=== PATIENT | male | born 1955 | race Caucasian/White ===

== ENCOUNTER 2020-05-23 13:53 | Outpatient (REF) | payer OTHER, SELFPAY ==
--- NOTE | 2020-05-23 14:04 | XR_ITS ---
EXAMINATION: XR SHOULDER, RIGHT CLINICAL INFORMATION: Pain in right shoulder. COMPARISON: None TECHNIQUE: Three views of the right shoulder. FINDINGS: There is loss of right AC joint and right glenohumeral joint space with inferior periarticular spurring. There is a small inferior acromial spur. No visible acute fracture, dislocation or lytic process seen. The soft tissues are normal. XR/XR shoulder RT min 2V IMPRESSION: Degenerative arthritic changes in right glenohumeral joint and right AC joint.
== END 2020-05-23 13:54 | disposition home or self-care (01) ==
LOC: HO.HOSX 13:53
PROVIDERS: Visit Provider Orthopaedic Surgery
DX: M75.41 Impingement syndrome of right shoulder (principal)
CPT/HCPCS: 73030; 99212

== ENCOUNTER 2020-07-31 09:58 | Outpatient (REF) | payer OTHER, SELFPAY ==
[2020-07-31 10:55] LABS: MANUAL DIFF FLAG NO
[2020-07-31 11:05] LABS: Basophils Absolute Auto 0.1 X10*3/uL (0.0-0.2); Basophils Percent Auto 0.8 % (0-2); Eosinophils Absolute Auto 0.3 X10*3/uL (0.0-0.4); Eosinophils Percent Auto 3.6 % (0-4); Hematocrit 44.3 % (42-52); Hemoglobin 13.9 g/dl (14.0-18.0); Imm Gran Abs Auto 0.03 X10*3/uL (0.00-0.03); Imm Gran Pct Auto 0.4 % (0.0-0.4); Lymphocytes Absolute Auto 1.6 X10*3/uL (1.2-4.9); Lymphocytes Percent Auto 19.5 % (20-40); Mean Corpuscular HGB Conc 31.4 g/dl (31.0-36.0); Mean Corpuscular Hemoglobin 28.6 pg (27.0-33.0); Mean Corpuscular Volume 91.2 fL (80-98); Mean Platelet Volume 12.1 fL (9.4-12.4); Monocytes Absolute Auto 0.8 X10*3/uL (0.1-1.2); Monocytes Percent Auto 9.6 % (2-11); Neutrophils Absolute Auto 5.5 X10*3/uL (2.0-8.3); Neutrophils Percent Auto 66.1 % (45-73); Platelet Count 182 X10*3/uL (160-400); Red Blood Count 4.86 X10*6/uL (4.60-5.80); Red Cell Distribution Width 13.2 % (11.0-16.0); White Blood Count 8.3 X10*3/uL (4.8-10.8)
[2020-07-31 11:30] LABS: Alanine Aminotransferase 20 U/L (0-40); Albumin Level 4.1 g/dL (3.5-5.0); Alkaline Phosphatase 43 U/L (39-117); Anion Gap 11 (12-20); Aspartate Amino Transferase 21 U/L (5-37); Bilirubin Total 0.9 mg/dL (0.0-1.0); Blood Urea Nitrogen 21 mg/dL (9-16); Calcium 9.3 mg/dL (8.4-10.2); Carbon Dioxide 28 mmol/L (22-29); Chloride 105 mmol/L (96-108); Cholesterol 199 mg/dL; Estimated Glomerular Filt Rate > 60; Glucose Random 90 mg/dL (60-115); HDL Cholesterol 56 mg/dL; LDL Cholesterol Calculated 130 mg/dl; Potassium 4.6 mmol/L (3.3-5.1); Sodium 139 mmol/L (135-145); Total Protein 5.9 g/dL (6.5-8.0); Triglycerides 67 mg/dL
[2020-07-31 11:52] LABS: Free T4 (Free Thyroxine) 0.97 ng/dL (0.71-1.85); Thyroid Stimulating Hormone 4.76 uIU/mL (0.32-4.0)
[2020-07-31 12:00] LABS: Folate > 20.0 ng/mL (> or = 4.0); Vitamin B12 964 pg/mL (200-900)
[2020-07-31 14:21] LABS: Prostate Specific Antigen Scr 1.45 ng/mL (<0.05-4.0)
== END 2020-07-31 09:59 | disposition home or self-care (01) ==
LOC: HO.LAB 09:58
PROVIDERS: PCP Internal Medicine; Visit Provider Internal Medicine
DX: N40.0 Benign prostatic hyperplasia without lower urinary tract symptoms (principal); I77.810 Thoracic aortic ectasia; M17.0 Bilateral primary osteoarthritis of knee; E78.00 Pure hypercholesterolemia, unspecified; Z12.5 Encounter for screening for malignant neoplasm of prostate
CPT/HCPCS: 36415; 80053; 80061; 82607; 82746; 84153; 84439; 84443; 85025

== ENCOUNTER → 2020-08-22 15:35 | Outpatient (BNVA) | payer OTHER, SELFPAY | PROVIDERS: PCP Internal Medicine; Visit Provider Surgery | DX: K43.9 Ventral hernia without obstruction or gangrene (principal); K42.9 Umbilical hernia without obstruction or gangrene | CPT/HCPCS: 99212 ==

== ENCOUNTER → 2020-08-29 13:25 | Outpatient (BNVA) | payer OTHER, SELFPAY | PROVIDERS: Visit Provider Orthopaedic Surgery | DX: M17.11 Unilateral primary osteoarthritis, right knee (principal) | CPT/HCPCS: J1040 ==

== ENCOUNTER → 2020-09-13 13:27 | Outpatient (REF) | payer OTHER, SELFPAY ==
--- NOTE | 2020-09-13 13:30 | CA_ITS ---
Transthoracic Echocardiogram Patient (Last, First, Middle): Dilan Seay, Gender: Male Date of : 1955 Age: 64 Procedure Date: 09/13/2020 Procedure Type: Transthoracic Echocardiogram Location: OP Height: 177.8 cm Weight: 84.37 kg BSA: 2.02 m2 Heart Rate: bpm BP: 139 / 82 mmHg Manager Of Compensation: ALICE Referring MD: Tavares Mcgee MD Symptoms: I77.810 - Thoracic aortic ectasia Study Quality: Fair ECG Rhythm: Bradycardia Conclusions: - The left ventricular systolic function is normal. The visually estimated ejection fraction is between 65-70%. - The mitral valve appears myxomatous. There is mild posterior mitral leaflet prolapse. There is mild mitral valve regurgitation. Findings Left Ventricle Normal left ventricular cavity size. There is normal left ventricular wall thickness. The left ventricular systolic function is normal. The visually estimated ejection fraction is between 65-70%. There is no evidence of regional wall motion abnormalities. Diastolic function is normal for age. Right Ventricle Normal right ventricular cavity size and systolic function. Atria Both atria are normal in size. Aortic Valve There is a normal trileaflet aortic valve. There is mild calcification of the aortic valve. There is no aortic valve stenosis. Trace to mild aortic regurgitation. Mitral Valve The mitral valve appears myxomatous. There is mild posterior mitral leaflet prolapse. There is mild mitral valve regurgitation. There is no mitral valve stenosis. Small mobile structure on the leaflet most likely chordal. Pulmonic Valve The pulmonic valve was not well visualized. There is trace to mild pulmonic valve regurgitation. Tricuspid Valve Normal tricuspid valve structure. There is trace tricuspid valve regurgitation. The pulmonary artery systolic pressure is normal. Great Vessels The aortic annulus, sinuses of valsalva, and asc aorta are normal in size. Venous The inferior vena cava is normal in size and collapses greater than 50% with inspiration. Pericardium/Pleural There is no evidence of pericardial effusion. Prior Study Comparison No prior study available for comparison. Measurements M-Mode Liner Measurements Normals - Women/Men AOV Cusps: 2.60 1.5-2.6 cm/m2 2D Linear Measurements IVSd: 0.98 0.6-0.9/0.6-1.0 cm LVIDd: 5.17 3.9-5.3/4.2-5.9 cm LVIDd Index: 0.42 2.4-3.2/2.2-3.1 cm/m2 LVIDs: 3.20 2.0-3.6 cm LVPWd: 1.02 0.7-1.1 cm Ao Root: 3.20 2.1-3.5 cm LA Diam: 4.20 2.7-3.8/3.0-4.0 cm LAIDs Index: 0.34 1.5-2.3 cm/m2 LV Mass: 239.95 67-162/88-224 g LV Mass Index: 19.57 43-95/49-115 g/m2 LVOT Diam: 2.50 3.0+(-)1.3 cm 2D Systolic Function EF 4C: 65.60 >55% EF 2C: 68.20 >55% EF BiP: 67.10 >55% Mitral Valve MV Pk E: 0.66 MV PK A: 0.38 MV Decel Time: 363.00 E/A: 1.70 E'Lateral: 12.80 E'Medial: 7.40 E/E' Med: 8.90 E/E' Lat: 5.20 PHT: 106.00 MVA PHT: 2.08 Decel Wilkin: 1.82 Aortic Valve AoV Pk Alok: 1.57 AoV Pk Grad: 10.00 LVOT LVOT Pk Alok: 0.99 LVOT Mn Alok: 0.66 LVOT VTI: 0.21 LVOT Pk Grad: 4.00 LVOT Mn Grad: 2.00 LVOT Diam: 2.50 LVOT Area: 4.91 Diastolic Function MV Pk E: 0.66 MV Pk A: 0.38 E/A: 1.70 E'Medial: 7.40 E/E' Med: 8.90 E' Laterial: 12.80 E/E' Lat: 5.20 Tricuspid Valve TR Pk Alok: 2.39 TR Pk Grad: 23.00 RA Press: 3.00 RVSP: 26.00 Great Vessels Aorta Ao Root-2D: 3.20 2.0-3.7 cm Ao Asc: 3.40 2.1-3.4 cm Ao Arch: 2.90 Pulmonary Valve PV Pk Alok: 1.41 Peak PV Grad: 8.00 Updated in Other Vendor System with Status of Final Aaron Kraft MD electronically signed on 09/16/2020 10:10:26 AM with status of Final
== END ==
LOC: HO.CARD 13:27
PROVIDERS: Visit Provider Internal Medicine
DX: I77.810 Thoracic aortic ectasia (principal)
CPT/HCPCS: 93306

== ENCOUNTER 2020-10-09 08:42 | Day surgery (SDC) | payer OTHER, SELFPAY ==
[2020-10-02 11:38] VITALS: BMI 27.1
--- NOTE | 2020-10-04 14:19 | HO.ANESPROP2 ---
Documented by User: Sharon Art 10/04/20 14:24 HPI - Anesthesia Eval Consult details Narrative: 64yo F for Umbilical & Supraumbilical Hernia Repairs PMFSH Active Problems Active Problems: All Active Problems (Updated 10/03/20 @ 09:00 by Mable Garcia) Shoulder pain (Acute) Rotator cuff impingement syndrome of right shoulder (Acute) High thyroid stimulating hormone (TSH) level (Acute) Onychomycosis (Acute) Primary osteoarthritis of right knee (Acute) Bradycardia (Acute) Vertigo (Acute) Supraumbilical hernia (Acute) Ventral hernia (Acute) Umbilical hernia (Acute) Ascending aorta dilatation (Acute) Osteoarthritis of knees, bilateral (Acute) BPH (benign prostatic hyperplasia) (Acute) Past Medical History Medical History Ascending aorta dilatation Bipolar 1 disorder BPH (benign prostatic hyperplasia) Bradycardia Erectile dysfunction Osteoarthritis of knees, bilateral Pituitary adenoma Supraumbilical hernia Umbilical hernia Ventral hernia Vertigo Family History Family History Father CVD (cardiovascular disease) Mother Medical history unknown Maternal Aunt Non-Hodgkin lymphoma Paternal Uncle Myocardial infarction Surgical History Surgical History H/O colonoscopy History of surgery History of tonsillectomy Skin cancer of face Social History Social History Alcohol intake: current Alcohol intake frequency: a few times a month Alcohol type: beer Smoking Status: Former smoker Tobacco Type: Cigarette Advance Directives Information Provided: No Current occupational status: employed 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 The visually estimated ejection fraction is between 65-70%. - The mitral valve appears myxomatous. There is mild posterior mitral leaflet prolapse. There is mild mitral valve regurgitation. The aortic annulus, sinuses of valsalva, and asc aorta are normal in size. Assessment and Plan Assessment Anesthesia Assessment: Chart Reviewed Documented by User: Samuel Palma MD 10/09/20 11:48 [facility] Past Medical History Medical History Ascending aorta dilatation Bipolar 1 disorder BPH (benign prostatic hyperplasia) Bradycardia Erectile dysfunction Osteoarthritis of knees, bilateral Pituitary adenoma Supraumbilical hernia Umbilical hernia Ventral hernia Vertigo Family History Family History Father CVD (cardiovascular disease) Mother Medical history unknown Maternal Aunt Non-Hodgkin lymphoma Paternal Uncle Myocardial infarction Surgical History Surgical History H/O colonoscopy History of surgery History of tonsillectomy Skin cancer of face Social History Social History Alcohol intake: current Alcohol intake frequency: a few times a month Alcohol type: beer Smoking Status: Former smoker Tobacco Type: Cigarette Advance Directives Information Provided: No Current occupational status: employed 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 Meds Allergies Allergy/AdvReac Type Severity Reaction Status Date / Time erythromycin base AdvReac Mild N/V Verified 10/09/20 10:02 [ERYTHROMYCIN BASE] Exam Airway Mallampati Class: I TM Dist: >3cm Neck ROM: Full Loose/Missing/Broken Teeth: Yes Heart: RRR Lungs: NL Assessment and Plan Assessment Anesthesia Assessment: Anesthesia Plan Discussed and Chart Reviewed Final Anesthetic Review NPO: Yes ASA Class: II Final Preanesthetic Review: No Changes in Pt Med Stat, Meds/Allgs Chart Reviewed, Consent Obtained/Reviewed and Anes Risks/Benef Reviewed Patient Risk: Low Procedure Risk: Low Anesthetic Plan Anesthetic Plan: GA Disposition: Standard PACU
[2020-10-09] VITALS (7 sets, daily range): BP systolic 122–150; BP diastolic 62–78; PULSE 47–55; RESP 14–18; TEMP 36.7; O2SAT 95–99
[2020-10-09] MEDS: Lactated Ringers 1,000 ML 100 ML IVCONT (10:24)
--- NOTE | 2020-10-09 10:35 | MHC.SHP ---
Pre-Procedural Eval Section B Chief Complaint: Supraumbilical hernia, Umbilical hernia Allergies: Allergies Allergy/AdvReac Type Severity Reaction Status Date / Time erythromycin base AdvReac Mild N/V Verified 10/09/20 10:02 [ERYTHROMYCIN BASE] Plan I have reviewed the history and physical and performed a pertinent physical examination on my patient. No changes have occurred unless specified.
--- NOTE | 2020-10-09 12:53 | PM.OP ---
Brief Operative Note Date of Service: 10/09/20 Pre-op diagnosis: supraumbilical and umbilical hernias Post-op diagnosis: same Procedure: repair of supraumbilical and umbilical hernia with mesh Implants: mesh Surgeon: Ravi Stone MD Anesthesia: GLMA Estimated blood loss (mL): 15 Pathology: none sent Condition: stable Disposition: PACU
--- NOTE | 2020-10-09 13:12 | P.OP_ITS ---
Operative Note Operative Note Date of Service: 10/09/20 Narrative: Preop diagnosis: Supraumbilical and umbilical hernias Postop diagnosis: The same Procedure: Repair of supraumbilical and umbilical hernias with mesh, Ventralex Surgeon: Ravi Stone MD Per Diem Physical Therapist Assistant: None The patient is a 64-year-old male who was seen by me in the office for umbilical and supraumbilical hernias. He wanted both of these repaired. He understood the technique of the procedure. He was aware of the risks, benefits, and alternatives. He was brought to the operating room and placed in supine position under general anesthesia via laryngeal mask airway. The abdomen was prepped and draped in the usual sterile fashion. A surgical time-out was done. The patient received cefazolin 2 g IV preoperatively. The umbilical hernia was palpable and this measured about 1.5 cm. There was another hernia just above the umbilicus measuring about 2 cm in size. Since there was very short intervening gap between the 2, I felt that it would be reasonable to repair this 2 hernias with 1 mesh. I made a short incision on the midline starting from just above the umbilicus towards the umbilicus itself using a blade 15. This was carried down through the full-thickness skin and ubcutaneous fat down to the fascia. I was able to clearly see both hernias. Both of these hernias contained fat. A sharply dissected the supraumbilical hernia using Metzenbaum scissors down to the fascial defect. This was a small defect measuring about 1.5 cm in size The umbilical hernia was also about 1.0 cm in size. Again there was note of a very short intervening fascia between the 2. I had to dissect the umbilicus off of the hernia itself sharply to separate this and allow me to define the hernia down to the fascia. Eventually with sharp dissection I was able to define the entire hernia defect. This was about 1 cm in size. I connected the hernias by dividing the very short intervening fascia. I applied Arnol clamps to the fascia to lift this and these allowed me to visualize the underside of the fascial defect. There was note of adherent omentum without any bowel loops. I the omentum from the fascia sharply using Metzenbaum scissors to allow me to have a clear margin around the fascial defect for placement of the mesh. The total hernia defect was probably about 3.5 cm . I used a medium-sized Ventralex mesh. This was laid flat under the fascia. I secured this to the fascia with Prolene 2-0 sutures using the Prolene straps on each side. I then came the straps flush on the fascial level. I closed the fascia with a running Maxon 1 stitch. A Dexon 3-0 stitch was used to states the umbilicus to the fascia to recreate the umbilical dimple. I then closed the skin with running Dexon 4-0 subcuticuclar running sutures. I infiltrated the area with Marcaine 0.5% for postop analgesia. Steri-Strips and dressings were applied. The procedure was then completed The patient tolerated mass procedure well. There were no complications noted. Initial and final counts of sponges and instruments were correct. Estimated blood loss about 20 cc. The patient tolerated procedure well. The patient was extubated without difficulty and transferred to the recovery room with stable vital signs.
[2020-10-09] MEDS: oxyCODONE HCl Immed Release 5 MG TABLET PO (13:36)
== END 2020-10-09 14:26 | disposition home or self-care (01) ==
PROVIDERS: PCP Internal Medicine; Visit Provider Surgery
PROC: (CPT 49560; principal; 2020-10-09 11:50)
DX: K43.9 Ventral hernia without obstruction or gangrene (principal); K42.9 Umbilical hernia without obstruction or gangrene; D35.2 Benign neoplasm of pituitary gland; Z85.828 Personal history of other malignant neoplasm of skin; Z88.1 Allergy status to other antibiotic agents; Z79.899 Other long term (current) drug therapy
CPT/HCPCS: 49560; 49568; C1781; J0690; J1100; J1170; J2250; J2370; J2405; J3010

== ENCOUNTER → 2020-10-22 11:21 | Outpatient (BNVA) | payer OTHER, SELFPAY | PROVIDERS: PCP Internal Medicine; Visit Provider Surgery | DX: Z48.815 Encounter for surgical aftercare following surgery on the digestive system (principal); Z87.19 Personal history of other diseases of the digestive system | CPT/HCPCS: 99212 ==

== ENCOUNTER → 2021-01-09 13:23 | Outpatient (BNVA) | payer OTHER, SELFPAY | PROVIDERS: PCP Internal Medicine; Visit Provider Orthopaedic Surgery | DX: M17.11 Unilateral primary osteoarthritis, right knee (principal); Z88.8 Allergy status to other drugs, medicaments and biological substances | CPT/HCPCS: 20610; 99212; J1040 ==

== ENCOUNTER 2021-04-03 15:53 | Outpatient (REF) | payer OTHER, SELFPAY ==
[2021-04-03 16:13] LABS: MANUAL DIFF FLAG NO
[2021-04-03 16:51] LABS: Basophils Absolute Auto 0.1 X10*3/uL (0.0-0.2); Basophils Percent Auto 0.9 % (0-2); Eosinophils Absolute Auto 0.3 X10*3/uL (0.0-0.4); Eosinophils Percent Auto 2.9 % (0-4); Hematocrit 43.7 % (42-52); Hemoglobin 13.8 g/dl (14.0-18.0); Imm Gran Abs Auto 0.04 X10*3/uL (0.00-0.03); Imm Gran Pct Auto 0.4 % (0.0-0.4); Lymphocytes Absolute Auto 1.9 X10*3/uL (1.2-4.9); Lymphocytes Percent Auto 19.5 % (20-40); Mean Corpuscular HGB Conc 31.6 g/dl (31.0-36.0); Mean Corpuscular Hemoglobin 28.6 pg (27.0-33.0); Mean Corpuscular Volume 90.7 fL (80-98); Monocytes Absolute Auto 0.8 X10*3/uL (0.1-1.2); Monocytes Percent Auto 8.1 % (2-11); Neutrophils Absolute Auto 6.8 X10*3/uL (2.0-8.3); Neutrophils Percent Auto 68.2 % (45-73); Platelet Count 204 X10*3/uL (160-400); Red Blood Count 4.82 X10*6/uL (4.60-5.80); Red Cell Distribution Width 13.3 % (11.0-16.0); White Blood Count 9.9 X10*3/uL (4.8-10.8)
[2021-04-03 17:44] LABS: Free T4 (Free Thyroxine) 0.94 ng/dL (0.71-1.85); Thyroid Stimulating Hormone 3.37 uIU/mL (0.32-4.0)
== END 2021-04-03 15:54 | disposition home or self-care (01) ==
LOC: HO.LAB 15:53
PROVIDERS: PCP Internal Medicine; Visit Provider Internal Medicine
DX: R79.89 Other specified abnormal findings of blood chemistry (principal); R19.5 Other fecal abnormalities
CPT/HCPCS: 36415; 84439; 84443; 85025

== ENCOUNTER 2021-07-02 16:52 | Outpatient (REF) | payer OTHER, SELFPAY ==
--- NOTE | ~2021-07-02 | XR_ITS ---
EXAMINATION: XR BILATERAL KNEE CLINICAL INFORMATION: Primary osteoarthritis. COMPARISON: Right knee 06/14/2019 TECHNIQUE: 2 views each knee. FINDINGS: LEFT KNEE: There is mild reduction in the tricompartment joint space slightly more severe in patellofemoral compartment with moderate superior inferior periarticular spurring. There is new soft tissue calcification likely myositis ossificans around the proximal knee joint likely from previous trauma. No fracture, dislocation or subluxation seen. RIGHT KNEE: There is genu varus deformity of the knee joint with loss of tricompartment joint space and moderate patellofemoral osteophytosis. No loose bodies or bony erosive changes seen. There is mild soft tissue swelling. XR/XR knee LT 2V IMPRESSION: 1. Mild to moderate degenerative arthritic changes bilateral knees worse in the right knee with tricompartment periarticular osteophytosis and genu varus deformity. 2. Degenerative arthritic changes left knee medial and patellofemoral compartment. . 2. There is no acute fracture or dislocation in either knee joint. There is [id number] suprapatellar joint effusion right knee.
--- NOTE | ~2021-07-02 | XR_ITS ---
EXAMINATION: XR BILATERAL KNEE CLINICAL INFORMATION: Primary osteoarthritis. COMPARISON: Right knee 06/14/2019 TECHNIQUE: 2 views each knee. FINDINGS: LEFT KNEE: There is mild reduction in the tricompartment joint space slightly more severe in patellofemoral compartment with moderate superior inferior periarticular spurring. There is new soft tissue calcification likely myositis ossificans around the proximal knee joint likely from previous trauma. No fracture, dislocation or subluxation seen. RIGHT KNEE: There is genu varus deformity of the knee joint with loss of tricompartment joint space and moderate patellofemoral osteophytosis. No loose bodies or bony erosive changes seen. There is mild soft tissue swelling. XR/XR knee RT 2V IMPRESSION: 1. Mild to moderate degenerative arthritic changes bilateral knees worse in the right knee with tricompartment periarticular osteophytosis and genu varus deformity. 2. Degenerative arthritic changes left knee medial and patellofemoral compartment. . 2. There is no acute fracture or dislocation in either knee joint. There is [id number] suprapatellar joint effusion right knee.
== END 2021-07-02 16:53 | disposition home or self-care (01) ==
LOC: HO.XRAY 16:52
PROVIDERS: Visit Provider Internal Medicine
DX: M17.0 Bilateral primary osteoarthritis of knee (principal)
CPT/HCPCS: 73560

== ENCOUNTER 2021-10-31 07:40 | Outpatient (REF) | payer OTHER, SELFPAY ==
--- NOTE | ~2021-10-31 | XR_ITS ---
EXAMINATION: KNEE X-RAY CLINICAL INFORMATION: Pain COMPARISON: Previous x-rays most recent June 2021 TECHNIQUE: Standing AP view of both knees and lateral view of the left knee FINDINGS: Left knee: Bone alignment is normal. No fracture or dislocation is seen. There is arthritis greatest at the femoral tibial joint. There is a small joint effusion. There are large multiple periarticular soft tissue ossifications that appears stable. 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 There is atherosclerotic disease. Right knee: Standing AP view of the right knee demonstrates varus angulation and severe arthritis at the femoral tibial joints XR/XR knee standing BI IMPRESSION: Left knee: Arthritis and significant periarticular soft tissue calcifications or ossifications questionable for synovial osteochondromatosis. Right knee: Varus angulation and severe arthritis at the femoral tibial joints.
--- NOTE | ~2021-10-31 | XR_ITS ---
EXAMINATION: KNEE X-RAY CLINICAL INFORMATION: Pain COMPARISON: Previous x-rays most recent June 2021 TECHNIQUE: Standing AP view of both knees and lateral view of the left knee FINDINGS: Left knee: Bone alignment is normal. No fracture or dislocation is seen. There is arthritis greatest at the femoral tibial joint. There is a small joint effusion. There are large multiple periarticular soft tissue ossifications that appears stable. 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 There is atherosclerotic disease. Right knee: Standing AP view of the right knee demonstrates varus angulation and severe arthritis at the femoral tibial joints XR/XR knee LT 2V IMPRESSION: Left knee: Arthritis and significant periarticular soft tissue calcifications or ossifications questionable for synovial osteochondromatosis. Right knee: Varus angulation and severe arthritis at the femoral tibial joints.
== END 2021-10-31 07:41 | disposition home or self-care (01) ==
LOC: HO.HOSX 07:40
PROVIDERS: Visit Provider Orthopaedic Surgery
DX: M25.562 Pain in left knee (principal); M21.161 Varus deformity, not elsewhere classified, right knee; M17.11 Unilateral primary osteoarthritis, right knee
CPT/HCPCS: 73560; 73565

== ENCOUNTER 2021-12-17 11:10 | Outpatient (REF) | payer OTHER, SELFPAY ==
--- NOTE | ~2021-12-17 | XR_ITS ---
EXAMINATION: XR KNEE, RIGHT CLINICAL INFORMATION: Pain COMPARISON: 07/02/2021 TECHNIQUE: AP and lateral of the right knee. FINDINGS: There is no evidence of acute fracture or dislocation of the right knee. There is a small right knee effusion present. There is severe tricompartment degenerative joint disease present with loss of joint space compartments and marginal spurring. There is also narrowing of the patellofemoral joint with prominent spurring being present. There is varus deformity present. Findings are unchanged from previous study. XR/XR knee RT 2V IMPRESSION: Severe tricompartment degenerative change of the right knee.
[2021-12-17 11:32] LABS: MANUAL DIFF FLAG NO
--- NOTE | 2021-12-17 11:50 | ECG_ITS ---
Test Reason : PREOP Blood Pressure : / mmHG Vent. Rate : 037 BPM Atrial Rate : 037 BPM P-R Int : 222 ms QRS Dur : 112 ms QT Int : 500 ms P-R-T Axes : 079 047 041 degrees QTc Int : 392 ms Marked sinus bradycardia with 1st degree A-V block Septal infarct (cited on or before 17-FEB-2018) Abnormal ECG When compared with ECG of 20-FEB-2018 12:11, Vent. rate has decreased BY 19 BPM Referred By: Carter Pathak Electronically Signed By:PAYAM SEWELL
[2021-12-17 12:36] LABS: Basophils Absolute Auto 0.1 X10*3/uL (0.0-0.2); Basophils Percent Auto 0.8 % (0-2); Eosinophils Absolute Auto 0.3 X10*3/uL (0.0-0.4); Eosinophils Percent Auto 3.4 % (0-4); Hematocrit 41.5 % (42.0-52.0); Imm Gran Abs Auto 0.03 X10*3/uL (0.00-0.03); Imm Gran Pct Auto 0.4 % (0.0-0.4); Lymphocytes Absolute Auto 1.6 X10*3/uL (1.2-4.9); Lymphocytes Percent Auto 19.2 % (20-40); Mean Corpuscular HGB Conc 31.3 g/dl (31.0-36.0); Mean Corpuscular Hemoglobin 28.5 pg (27.0-33.0); Mean Platelet Volume 12.6 fL (9.4-12.4); Monocytes Absolute Auto 0.8 X10*3/uL (0.1-1.2); Monocytes Percent Auto 10.1 % (2-11); Neutrophils Absolute Auto 5.5 x10*3/uL (2.0-8.3); Neutrophils Percent Auto 66.1 % (45-73); Platelet Count 179 X10*3/uL (160-400); Red Blood Count 4.56 X10*6/uL (4.60-5.80); Red Cell Distribution Width 13.3 % (11.0-16.0); White Blood Count 8.4 X10*3/uL (4.8-10.8)
[2021-12-17 12:39] LABS: Prothrombin Time 11.1 SEC (10.0-13.1)
[2021-12-17 12:42] LABS: Partial Thromboplastin Time 33.7 SEC (24.1-38.0)
[2021-12-17 12:58] LABS: Anion Gap 10 (12-20); Blood Urea Nitrogen 19 mg/dL (9-16); Calcium 9.3 mg/dL (8.4-10.2); Carbon Dioxide 25 mmol/L (22-29); Chloride 109 mmol/L (96-108); Estimated Glomerular Filt Rate > 60; Glucose Random 105 mg/dL (60-115); Potassium 4.9 mmol/L (3.3-5.1); Sodium 139 mmol/L (135-145)
== END 2021-12-17 11:11 | disposition home or self-care (01) ==
LOC: HO.LAB 11:10
PROVIDERS: Absent Provider Orthopaedic Surgery; PCP Internal Medicine; Visit Provider Nurse Practitioner Family
DX: Z01.818 Encounter for other preprocedural examination (principal); M25.561 Pain in right knee
CPT/HCPCS: 36415; 73560; 80048; 85025; 85610; 85730; 93005; 99283

== ENCOUNTER 2021-12-17 13:00 | Emergency (ER) | payer OTHER, SELFPAY ==
--- NOTE | 2021-12-17 | ECG_ITS ---
Test Reason : cp Blood Pressure : / mmHG Vent. Rate : 045 BPM Atrial Rate : 045 BPM P-R Int : 230 ms QRS Dur : 110 ms QT Int : 474 ms P-R-T Axes : 060 011 068 degrees QTc Int : 410 ms Sinus bradycardia with 1st degree A-V block Septal infarct (cited on or before 17-FEB-2018) Abnormal ECG When compared with ECG of 17-DEC-2021 12:30, Nonspecific T wave abnormality now evident in Lateral leads Referred By: Generic ED Physician Electronically Signed By:PAYAM SEWELL
[2021-12-17 13:44] VITALS: BP 131/58; PULSE 50; RESP 16; TEMP 36.7; O2SAT 97; BMI 25.8
--- NOTE | 2021-12-17 14:02 | ED_ITS ---
HPI - General Adult General Chief complaint: Recheck/Abnormal Lab/Rx Stated complaint: abnormal ekg sent from cardiology Time Seen by Provider: 12/17/21 13:08 Source: patient Mode of arrival: ambulatory Limitations: no limitations History of Present Illness HPI narrative: cbc and cmp normal in office today complaint: low HR - told in EKG office has no symptoms baseline HR 50 EKG today 37 Onset (ago): hour(s) (just found out in appointment today ) Severity: mild Relieving factors: none Exacerbating factors: none Associated symptoms: denies other symptoms Treatments prior to arrival: none Related Data Previous Rx's Medication Instructions Recorded lithium carbonate 300 mg capsule 600 mg PO BID #360 caps 07/02/21 tamsulosin 0.4 mg capsule 0.8 mg PO DAILY 90 days #180 caps 07/11/21 Allergies Allergy/AdvReac Type Severity Reaction Status Date / Time erythromycin base AdvReac Mild N/V Verified 12/17/21 10:27 [ERYTHROMYCIN BASE] Review of Systems Review of Systems: Constitutional : No Fever, No Chills ENT/Mouth : No sore throat, No Rhinorrhea Eyes: No Eye Pain, No Swelling, No Redness Cardiovascular : No Chest Pain, No SOB Respiratory : No Cough, No Sputum, No Wheezing Gastrointestinal : No Nausea, No Vomiting, No Diarrhea Genitourinary : No Dysuria, No Urinary Frequency, No Hematuria, Musculoskeletal : No joint pain, No Myalgias, No Joint Swelling Skin : No Skin Lesions, No rash Neuro : No Weakness, No Numbness, No Dizziness, No Headache Psych : No Anxiety/Panic, No Depression All other systems reviewed and are negative PMFSH Past Medical History Attestation statement: The following information was validated with the patient. Medical History Arthritis of both knees Erectile dysfunction Pituitary adenoma Surgical History H/O colonoscopy History of surgery History of tonsillectomy Skin cancer of face Family History Family History (Updated 12/17/21 @ 10:17 by ABBY Erwin) Father CVD (cardiovascular disease) Mental health disorder Mother Medical history unknown Maternal Aunt Non-Hodgkin lymphoma Paternal Uncle Myocardial infarction Social History Social History Housing: House Alcohol intake: current Alcohol intake frequency: a few times a month Alcohol type: beer Patient Tobacco Use Status: Former Tobacco user Years Smoked: December 2003 e-Cigarette/Vaping Use: Never Used Second Hand Smoke Exposure: No Advance Directives: No Advance Directives Information Provided: No service: No Current occupational status: employed 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 Oriented X3. No acute distress. Very talkative and animated reading a book no distress Eyes: Pupils equal, round and reactive to light. ENT: Pharynx normal. Neck: Normal inspection. Neck supple. CVS: bradycardicl heart rate and rhythm. Pulses normal. Respiratory: No respiratory distress. Breath sounds normal. Abdomen: Soft and non-tender. Skin: Skin warm and dry. Normal skin color. Normal skin turgor. Extremities: No lower extremity edema. No calf ttp Neuro: Oriented X 3. No motor deficit. No sensory deficit. Medical Decision Making MDM Narrative Medical decision making narrative: 66 yo male with hx of BPH on flomax, bipolar on lithium takes no other medica tions comes in today with c/o being told he had low HR in EKG office. He notes he went for preop evaluation for knee surgery and spent all day getting seen, labs, CXR, EKG he didn't eat much today and was feeling nervous at times and hungry. He had the EKG he had no CP/SOB no dizziness but did feel anxious and his HR was 37 BP at that time he was told was normal. He is asymptomatic and BP/HR normal here with normal HR 50 for him. At this time asymptomatic bradycardia in patient with normal BPs and normal lytes earlier today not on BB or CCB can follow up with PCP givne precautions to return - has hx of bradycardia in the past this is not new had ECHO in 2020 ECG Data Attestation: I personally reviewed and interpreted this ECG as follows: Interpretation: Rate: 45 Rhythm: sinus bradycardia [place]: normal Normal P waves. Normal 1st degree AVB Normal QRS complex. ST T wave : nonspecific no AIDA qTC: normal prior studies: 1st degree new from 2018 but otherwise old sinus bradycardia noted in the past as well The study has been interpreted contemporaneously by me. Discharge Plan Discharge Clinical Impression: Bradycardia, sinus Patient Disposition: Home, Self-Care Instructions: Bradycardia (ED) Additional Instructions: return to ED for any worsening symptoms or concerns if you experience chest pain, shortness of breath, dizziness please seek medical care your heart rate in the emergency department was 45- 50 and your blood pressure was 131/58 please go home and eat. you will need to see your doctor again before surgery Prescriptions: No Action lithium carbonate 300 mg capsule 600 mg PO BID Qty: 360 2RF tamsulosin 0.4 mg capsule 0.8 mg PO DAILY 90 Days Qty: 180 2RF Interventions: ED Discharge Assessment Last Done: 12/17/21 14:14 Discharge Date/Time: 12/17/21 14:17
== END 2021-12-17 14:17 | disposition home or self-care (01) ==
PROVIDERS: Emergency Provider Emergency Medicine; PCP Internal Medicine
DX: R00.1 Bradycardia, unspecified (principal); N40.0 Benign prostatic hyperplasia without lower urinary tract symptoms; F31.9 Bipolar disorder, unspecified; Z79.899 Other long term (current) drug therapy
CPT/HCPCS: 93005; 99283

== ENCOUNTER 2021-12-18 | Outpatient (REF) | payer OTHER, SELFPAY ==
--- NOTE | 2021-12-19 10:48 | P.CONAN_ITS ---
HPI - Anesthesia Eval Consult details Narrative: 66yo M for Right Knee Replacement Total Marked SB with preop EKG @ 37. Baseline kun @ ~50. Went to ED and instructed to f/u with PCP prior to surgery. PCP referred for holter. Awaiting results. [facility] Active Problems Active Problems: All Active Problems (Updated 12/18/21 @ 00:02 by Abdelrahman Donald) Pre-operative clearance (Acute) Shoulder pain (Acute) Bipolar 1 disorder (Acute) Rotator cuff impingement syndrome of right shoulder (Acute) BPH (benign prostatic hyperplasia) (Acute) Osteoarthritis of knees, bilateral (Acute) Ascending aorta dilatation (Acute) Ventral hernia (Acute) Umbilical hernia (Acute) High thyroid stimulating hormone (TSH) level (Acute) Onychomycosis (Acute) Supraumbilical hernia (Acute) Vertigo (Acute) Bradycardia (Acute) Primary osteoarthritis of right knee (Acute) Right knee pain (Acute) Annual physical exam (Acute) TSH elevation (Acute) Constipation (Acute) Guaiac + stool (Acute) Impacted cerumen of right ear (Acute) Chronic anemia (Acute) Osteoarthritis of right knee (Acute) Varus deformity, not elsewhere classified, right knee (Acute) Past Medical History Medical History Arthritis of both knees Erectile dysfunction Pituitary adenoma Family History Family History (Updated 12/17/21 @ 10:17 by ABBY Erwin) Father CVD (cardiovascular disease) Mental health disorder Mother Medical history unknown Maternal Aunt Non-Hodgkin lymphoma Paternal Uncle Myocardial infarction Surgical History Surgical History H/O colonoscopy History of surgery History of tonsillectomy Skin cancer of face Social History Social History Housing: House Are you a primary career information specialist to a significant other at home: No Do you presently have visiting nurse or other home services: No Alcohol intake: current Alcohol intake frequency: a few times a month Alcohol type: beer Patient Tobacco Use Status: Former Tobacco user Quit Date: 2003 Tobacco use type: Cigarette Years Smoked: December 2003 e-Cigarette/Vaping Use: Never Used Second Hand Smoke Exposure: No service: No Current occupational status: employed 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 Current occupational exposures/hazards: No Cognitive needs: Yes Hearing needs: No Vision needs: Yes Narrative Narrative: Regular strength training without CP/SOB/lightheadedness No recent illness Meds Allergies Allergy/AdvReac Type Severity Reaction Status Date / Time erythromycin base AdvReac Mild N/V Verified 12/20/21 11:08 [ERYTHROMYCIN BASE] Home Medications Medication Instructions Recorded Confirmed Last Taken Type ascorbic acid (vitamin C) 500 mg 500 mg PO DAILY 12/19/21 12/19/21 Unknown History tablet (Vitamin C) glucosamine sulf dipot cap PO 12/19/21 12/19/21 Unknown History chlr,msm,chond 550 mg-C 30 mg-guadalupe 1 mg capsule (Glucosamine Chondroitin) vitamin B complex 1 cap PO DAILY 12/19/21 12/19/21 Unknown History Exam Exam Date and Time: December 19, 2021 1048 Pertinent Lab Results Pertinent Lab Results: Laboratory Tests 12/17/21 12/17/21 11:30 11:30 WBC 8.4 Hgb 13.0 L Hct 41.5 L Plt Count 179 Sodium 139 Potassium 4.9 Chloride 109 H Carbon Dioxide 25 BUN 19 H Creatinine 1.07 Narrative Narrative: ECHO 08/2020 Conclusions: - The left ventricular systolic function is normal.? The visually estimated ejection fraction is between 65-70%. ? - The mitral valve appears myxomatous.? There is mild posterior? mitral leaflet prolapse.? There is mild mitral valve ? regurgitation. ? ? Airway Mallampati Class: II TM Dist: >3cm Neck ROM: Full Loose/Missing/Broken Teeth: Yes (Molars pulled) Heart: Kun, RR Lungs: CTAB Assessment and Plan Assessment Anesthesia Assessment: Anesthesia Plan Discussed and PAT Visit
[2021-12-19 12:24] VITALS: BP 130/66; PULSE 47; RESP 20; O2SAT 96; BMI 26.1
[2021-12-19 16:23] LABS: MRSA Nasal PCR NEGATIVE (Negative); SA Nasal PCR NEGATIVE (Negative)
== END 2021-12-18 00:01 | disposition home or self-care (01) ==
LOC: HO.PAT
PROVIDERS: Physician Assistant; PCP Internal Medicine; Visit Provider Orthopaedic Surgery
DX: Z01.818 Encounter for other preprocedural examination (principal); M17.11 Unilateral primary osteoarthritis, right knee
CPT/HCPCS: 86850; 86900; 86901; 87640; 87641

== ENCOUNTER → 2022-01-01 13:02 | Outpatient (REF) | payer OTHER, SELFPAY ==
--- NOTE | 2022-01-01 13:06 | ECG_ITS ---
Hook-up date: 2022-01-01 12:23:00 Duration: 24:37:00 Test Indications: BRADYCARDIA Medications: 18940 QRS complexes 1117 Ventricular ectopics which represent 1 % of total QRS comp. 457 Supraventricular ectopics which represent <1 % of total QRS comp. * Paced QRS complexs which represent % of total QRS comp. VENTRICULAR ECTOPY 1117 Isolated 0 Bigeminal Cycles 0 Couplets 0 Runs 0 Beats in Runs * Beats LONGEST at * BPM at :: -- * Beats FASTEST at * BPM at :: -- SUPRAVENTRICULAR ECTOPY 435 Isolated 11 Couplets 0 Runs 0 Beats in Runs * Beats LONGEST at * BPM at :: -- * Beats FASTEST at * BPM at :: -- HEART RATES 36 MIN at 04:41:03 2022-01-02 52 AVG 97 MAX at 16:50:28 2022-01-01 LONGEST RR 1.8880 secs at 04:36:48 2022-01-02 S-T LEVELS Channel 1 - 128 mm at 12:23:00 2022-01-01 - 128 mm at 12:23:00 2022-01-01 Channel 2 - 128 mm at 12:23:00 2022-01-01 - 128 mm at 12:23:00 2022-01-01 Channel 3 - 128 mm at 03:14:21 -- - 128 mm at 03:14:21 Basic rhythm Normal sinus rhythm Frequent Sinus bradycardia , 76% of time HR < 60 bpm Frequent Premature ventricular complexes , 2% of total beats. Occasional Premature atrial complexes No diary submitted Referred By: Tavares Mcgee Overread By: MAYI ALAS MD
== END ==
LOC: HO.CARD 13:02
PROVIDERS: PCP Internal Medicine; Visit Provider Internal Medicine
DX: R00.1 Bradycardia, unspecified (principal)
CPT/HCPCS: 93225; 93226

== ENCOUNTER 2022-01-08 11:00 | Outpatient (RCR) | payer OTHER, SELFPAY ==
--- NOTE | 2021-12-10 15:53 | MHC.PT.EP ---
[facility] [place] Office [place] Office [place] Office [address] [phone] F: [phone] F: [phone] F: [phone] F: [phone] Physical Therapy Plan of Care Date of Evaluation: Date of Surgery: 12/31/2021 Diagnosis: Right knee prehab Assessment: Dilan is a 66 yo M referred to PT for prehab for a R TKA on 12/31/2021. He has difficulty ambulating stairs and standing for extended periods of time but still goes to the gym and works legs. Upon examination he presents with decrease motion and strength in his R knee, B gross weakness of hip musculature and limited R patella mobility. Dilan will benefit from skilled PT to address to aforementioned impairments, and receive education on post op treatment and gait pattern. Frequency and Duration: The patient will be seen 2/week x 2 weeks Short Term Goals: Fdc Goals: Patient will be I with HEP to allow for accelerated post op recovery in 2 weeks. Patient will be aware of proper gait pattern and use of AD to allow for earlier introduction to functional activites following surgery. Treatment Plan: Modalities to reduce pain, spasms and effusion. Manual therapy to restore motion and function. Therapeutic exercise to improve strength and flexibility. Neuromuscular re-education for posture and balance. Therapeutic activities to return to functional activities of daily living. Electronically signed by: Sola Gunter PT DPT Please sign and return to therapist. Thank you for your referral.
--- NOTE | 2022-01-17 15:20 | MHC.PT.DC ---
[facility] [place] Office [place] Office [place] Office [address] [phone] F: [phone] F: [phone] F: [phone] F: [phone] Physical Therapy Discharge Report Diagnosis: Right knee prehab Date of Surgery: 12/31/2021 Date of Evaluation: 12/10/21 Date of Discharge: 01/17/22 Treatments to Date: 8 Cancellations to Date: No Shows to Date: Discharge Status: Achieved Goals Improved Function Independent with HEP Discharge Summary: Dilan has achieved all goals set for him. He is therefore being d/c from PT. Electronically signed by: Sola Gunter PT DPT Please sign and return to therapist. Thank you for your referral.
== END 2022-01-17 15:20 | disposition home or self-care (01) ==
LOC: HO.PT 11:00
PROVIDERS: PCP Internal Medicine; Visit Provider Orthopaedic Surgery
DX: M21.161 Varus deformity, not elsewhere classified, right knee (principal); M17.11 Unilateral primary osteoarthritis, right knee
CPT/HCPCS: 97110; 97116; 97161; 97530

== ENCOUNTER 2022-01-14 14:25 | Outpatient (REF) | payer OTHER, SELFPAY ==
[2022-01-14 14:39] LABS: MANUAL DIFF FLAG NO
[2022-01-14 14:46] LABS: Basophils Absolute Auto 0.1 X10*3/uL (0.0-0.2); Basophils Percent Auto 0.8 % (0-2); Eosinophils Absolute Auto 0.3 X10*3/uL (0.0-0.4); Eosinophils Percent Auto 3.3 % (0-4); Hematocrit 41.1 % (42.0-52.0); Hemoglobin 13.3 g/dl (14.0-18.0); Imm Gran Abs Auto 0.02 X10*3/uL (0.00-0.03); Imm Gran Pct Auto 0.2 % (0.0-0.4); Lymphocytes Absolute Auto 1.8 X10*3/uL (1.2-4.9); Mean Corpuscular HGB Conc 32.4 g/dl (31.0-36.0); Mean Corpuscular Hemoglobin 28.9 pg (27.0-33.0); Mean Corpuscular Volume 89.3 fL (80.0-98.0); Mean Platelet Volume 11.6 fL (9.4-12.4); Monocytes Absolute Auto 0.7 X10*3/uL (0.1-1.2); Monocytes Percent Auto 7.9 % (2-11); Neutrophils Absolute Auto 5.9 x10*3/uL (2.0-8.3); Neutrophils Percent Auto 66.8 % (45-73); Platelet Count 184 X10*3/uL (160-400); Red Cell Distribution Width 13.2 % (11.0-16.0); White Blood Count 8.8 X10*3/uL (4.8-10.8)
[2022-01-14 15:41] LABS: Lithium 1.41 mmol/L (0.60-1.20)
[2022-01-14 15:57] LABS: Alanine Aminotransferase 18 U/L (0-40); Albumin Level 4.3 g/dL (3.5-5.0); Alkaline Phosphatase 44 U/L (39-117); Anion Gap 10 (12-20); Aspartate Amino Transferase 17 U/L (5-37); Bilirubin Total 0.5 mg/dL (0.0-1.0); Blood Urea Nitrogen 24 mg/dL (9-16); Calcium 9.2 mg/dL (8.4-10.2); Carbon Dioxide 24 mmol/L (22-29); Chloride 109 mmol/L (96-108); Estimated Glomerular Filt Rate 53; Glucose Random 89 mg/dL (60-115); Potassium 4.5 mmol/L (3.3-5.1); Sodium 138 mmol/L (135-145); Total Protein 6.7 g/dL (6.5-8.0)
[2022-01-14 16:08] LABS: Thyroid Stimulating Hormone 3.32 uIU/mL (0.32-4.0)
== END 2022-01-14 14:26 | disposition home or self-care (01) ==
LOC: HO.LAB 14:25
PROVIDERS: PCP Internal Medicine; Visit Provider Internal Medicine
DX: F31.9 Bipolar disorder, unspecified (principal); Z79.899 Other long term (current) drug therapy
CPT/HCPCS: 36415; 80053; 80178; 84443; 85025

== ENCOUNTER 2022-02-03 11:38 | Outpatient (REF) | payer OTHER, SELFPAY ==
[2022-02-03 12:41] LABS: Lithium 0.88 mmol/L (0.60-1.20)
== END 2022-02-03 11:39 | disposition home or self-care (01) ==
LOC: HO.LAB 11:38
PROVIDERS: PCP Internal Medicine; Visit Provider Internal Medicine
DX: F31.9 Bipolar disorder, unspecified (principal); Z79.899 Other long term (current) drug therapy
CPT/HCPCS: 36415; 80178

== ENCOUNTER 2022-03-09 17:51 | Emergency (ER) | payer OTHER, SELFPAY ==
[2022-03-09 18:13] VITALS: BP 177/81; PULSE 55; RESP 18; TEMP 37.8; O2SAT 95; BMI 25.8
[2022-03-09 18:45] LABS: COVID-19 Test Positive (Negative); IDNOW Serial# 16C4AD1C
--- NOTE | 2022-03-09 21:18 | ED.MEDCLEAR ---
HPI - Medical Clearance General Chief complaint: Medical Clearance Stated complaint: covid+ Time Seen by Provider: 03/09/22 21:04 Source: patient Mode of arrival: ambulatory History of Present Illness HPI Narrative: 66-year-old male with presentation for positive exposure to COVID-19 and now reporting fevers at home of T-max 101.3 degrees and some mild body aches and mild sore throat but otherwise denies any difficulty breathing or chest pain/palpitations. Related Information Home Medications Medication Instructions Recorded Confirmed ascorbic acid (vitamin C) 500 mg 500 mg PO DAILY 12/19/21 12/19/21 tablet (Vitamin C) glucosamine sulf dipot cap PO 12/19/21 12/19/21 chlr,msm,chond 550 mg-C 30 mg-guadalupe 1 mg capsule (Glucosamine Chondroitin) vitamin B complex 1 cap PO DAILY 12/19/21 12/19/21 Previous Rx's Medication Instructions Recorded tamsulosin 0.4 mg capsule 0.8 mg PO DAILY 90 days #180 caps 07/11/21 walker #1 ea 12/19/21 lithium carbonate 300 mg capsule 300 mg PO BID #360 caps 01/14/22 Allergies Allergy/AdvReac Type Severity Reaction Status Date / Time erythromycin base AdvReac Mild N/V Verified 12/20/21 11:08 [ERYTHROMYCIN BASE] Review of Systems Review of Systems: Pertinent positives and negatives as stated in HPI 10 point review of systems is otherwise negative. [facility] Past Medical History Source: nursing notes reviewed Medical History Arthritis of both knees Ascending aorta dilatation Bipolar 1 disorder BPH (benign prostatic hyperplasia) Bradycardia Erectile dysfunction Osteoarthritis of knees, bilateral Pituitary adenoma Umbilical hernia Ventral hernia Vertigo Surgical History H/O colonoscopy History of surgery History of tonsillectomy Skin cancer of face Supraumbilical hernia Family History Family History Father CVD (cardiovascular disease) Mental health disorder Mother Medical history unknown Maternal Aunt Non-Hodgkin lymphoma Paternal Uncle Myocardial infarction Social History Social History Housing: House Are you a primary career services director to a significant other at home: No Do you presently have visiting nurse or other home services: No Alcohol intake: current Alcohol intake frequency: a few times a month Alcohol type: beer Patient Tobacco Use Status: Former Tobacco user Quit Date: 2003 Tobacco use type: Cigarette Years Smoked: December 2003 e-Cigarette/Vaping Use: Never Used Second Hand Smoke Exposure: No Advance Directives: No service: No Current occupational status: employed 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 GENERAL: Well developed, well nourished, in no acute distress. HEAD: Normocephalic/atraumatic EYES: PERRLA, EOMI EARS: Ext canals without abnormality, TMs non-bulging and non-erythematous NOSE: Nares patent bilateral OROPHARYNX: no oral lesions noted, posterior pharynx clear LUNGS: Normal breath sounds. No tachypnea. SpO2<95> CARDIOVASCULAR: Regular rate and rhythm without noted murmurs, no JVD or lower extremity edema. ABDOMEN: Soft, non-tender, non-distended with bowel sounds. MUSCULOSKELETAL: No tenderness, deformities, or effusions noted on gross inspection. EXTREMITIES: No cyanosis, clubbing or edema. SKIN: Inspection of the skin reveals no rashes NEUROLOGIC: Alert and oriented x 4. Strength and sensation to light touch were grossly intact x 4. Course Course Course Narrative: 66-year-old male with history and clinical presentation consistent with viral syndrome and in conjunction with exposure to COVID-19 positive individual and review of all investigations positive for COVID-19. Patient was provided with these results and given combination analgesics and discharged home in stable condition oxygenating well on room air without tachypnea or chest pain/palpitations. MDM - Medical Clearance Lab Data Labs: Lab Results 03/09/22 Range/Units 18:29 COVID-19 (SUKHJINDER) Positive A (Negative) COVID-19 Clin Com See Note Discharge Plan Discharge Clinical Impression: Viral syndrome, Lab test positive for detection of COVID-19 virus Patient Disposition: Home, Self-Care Instructions: Viral Syndrome (ED), COVID-19 (Coronavirus Disease 2019) (ED) Additional Instructions: 1. Resume all home medications as prescribed. 2. You must isolate for 5 days and follow all CDC guidelines. 3. Follow-up with your primary care provider via telemedicine for re-evaluation. Return to the ER for any worsening symptoms. Prescriptions: No Action tamsulosin 0.4 mg capsule 0.8 mg PO DAILY 90 Days Qty: 180 2RF (DME) [facility] [place] Rx Instructions .ROUTE .MEDSUPPLY Qty: 1 0RF Rx Instructions: Folding front wheeled walker lithium carbonate 300 mg capsule 300 mg PO BID Qty: 360 2RF ascorbic acid (vitamin C) [Vitamin C] 500 mg Tablet 500 mg PO DAILY vitamin B complex [B Complex] Capsule 1 cap PO DAILY Glucosamine Chondroitin 550-30-1 mg Capsule PO Referrals: Po,Tavares Wood MD [Primary Care Provider] - Stand Alone Forms: Work/School Release
[2022-03-09] MEDS: Acetaminophen 325 MG TABLET 975 MG PO (21:21)
[2022-03-09] MEDS: Ibuprofen 400 MG TABLET PO (21:21)
== END 2022-03-09 21:40 | disposition home or self-care (01) ==
PROVIDERS: Emergency Provider Student in an Organized Health Care Education/Training Program; PCP Internal Medicine
DX: U07.1 COVID-19 (principal); Z79.899 Other long term (current) drug therapy
CPT/HCPCS: 87635; 99283

== ENCOUNTER → 2022-04-10 15:18 | Outpatient (BNVA) | payer OTHER, SELFPAY | PROVIDERS: PCP Internal Medicine; Visit Provider Orthopaedic Surgery | DX: M17.0 Bilateral primary osteoarthritis of knee (principal) | CPT/HCPCS: 20610; 99212; J1100 ==

== ENCOUNTER → 2022-05-28 15:38 | Outpatient (REF) | payer OTHER, SELFPAY ==
--- NOTE | 2022-05-28 15:43 | CA_ITS ---
Transthoracic Echocardiogram Patient (Last, First, Middle): Dilan Seay, Gender: Male Date of : 1955 Age: 66 Procedure Date: 05/28/2022 Procedure Type: Transthoracic Echocardiogram Location: OP Height: 177.8 cm Weight: 83.01 kg BSA: 2.01 m2 Heart Rate: bpm BP: 118 / 60 mmHg Chute Greaser: LEWIS Referring MD: Tavares Mcgee MD Spinning Lathe Operator Automatic: Giancarlo Chang MD Symptoms: I34.1 - Nonrheumatic mitral (valve) prolapse Study Quality: Good ECG Rhythm: Sinus Conclusions: - 1. Normal LV systolic and diastolic function 2. Moderately dilated left atrium 3. Mild prolapse of the posterior mitral leaflet with mild-to moderate eccentric mitral regurgitation 4. Mild aortic regurgitation 5. Normal RV systolic pressure 6. No gross pericardial effusion Findings Left Ventricle Normal left ventricular size, thickness, and systolic function. The visually estimated ejection fraction is between 60-65%. Diastolic function is normal for age. Right Ventricle Normal right ventricular cavity size and systolic function. Atria The left atrium is moderately dilated. There is no evidence of interatrial shunt. The right atrium is normal in size. Aortic Valve Normal aortic valve structure and function. There is no aortic valve stenosis. There is mild aortic valve regurgitation. Mitral Valve The mitral valve appears myxomatous. There is mild anterior and posterior mitral leaflet thickening. There is mild posterior mitral leaflet prolapse. There is mild to moderate mitral valve regurgitation. The mitral regurgitation jet is directed anteriorly. There is no mitral valve stenosis. Pulmonic Valve The pulmonic valve is likely normal. Tricuspid Valve Normal tricuspid valve structure. There is trace tricuspid valve regurgitation. The right ventricular systolic pressure is normal. The right ventricular systolic pressure is 28 mmHg. Normal right atrial pressure. There is no evidence of pulmonary hypertension. Great Vessels All visible segments of the aorta are normal in size. The pulmonary artery was not well visualized. Venous The inferior vena cava is normal in size and collapses greater than 50% with inspiration. Pericardium/Pleural There is no evidence of pericardial effusion. Prior Study Comparison No significant change compared to prior study dated: 09/13/2020. Measurements 2D Linear Measurements IVSd: 1.13 0.6-0.9/0.6-1.0 cm LVIDd: 5.37 3.9-5.3/4.2-5.9 cm LVIDd Index: 2.67 2.4-3.2/2.2-3.1 cm/m2 LVIDs: 2.76 2.0-3.6 cm LVPWd: 1.08 0.7-1.1 cm Ao Root: 3.40 2.1-3.5 cm LA Diam: 4.50 2.7-3.8/3.0-4.0 cm LAIDs Index: 2.24 1.5-2.3 cm/m2 LV Mass: 291.89 67-162/88-224 g LV Mass Index: 145.22 43-95/49-115 g/m2 LVOT Diam: 2.40 3.0+(-)1.3 cm Mitral Valve MV Pk E: 0.73 MV PK A: 0.55 MV Decel Time: 281.00 E/A: 1.30 E'Lateral: 14.80 E'Medial: 7.72 E/E' Med: 9.40 E/E' Lat: 4.90 PHT: 82.00 MVA PHT: 2.68 Decel Stokes: 2.60 Aortic Valve AoV Pk Alok: 1.62 AoV Mn Alok: 1.06 AoV VTI: 0.31 AoV Pk Grad: 10.00 Aov Mn Grad: 5.00 CATIA Cont.VTI: 2.82 LVOT LVOT Pk Alok: 0.97 LVOT Mn Alok: 0.66 LVOT VTI: 0.19 LVOT Pk Grad: 4.00 LVOT Mn Grad: 2.00 LVOT Diam: 2.40 LVOT Area: 4.52 Diastolic Function MV Pk E: 0.73 MV Pk A: 0.55 E/A: 1.30 E'Medial: 7.72 E/E' Med: 9.40 E' Laterial: 14.80 E/E' Lat: 4.90 Right Ventricle TAPSE (mm): 17.00 TVS' Alok: 17.00 Tricuspid Valve TR Pk Alok: 2.48 TR Pk Grad: 25.00 RA Press: 3.00 RVSP: 28.00 Great Vessels Aorta Ao Root-2D: 3.40 2.0-3.7 cm Ao Asc: 3.40 2.1-3.4 cm Pulmonary Valve PV Pk Alok: 1.51 Peak PV Grad: 9.00 Updated in Other Vendor System with Status of Final Giancarlo Chang MD electronically signed on 05/30/2022 6:13:30 PM with status of Final
== END ==
LOC: HO.CARD 15:38
PROVIDERS: PCP Internal Medicine; Visit Provider Internal Medicine
DX: I34.1 Nonrheumatic mitral (valve) prolapse (principal)
CPT/HCPCS: 93306

== ENCOUNTER → 2022-06-02 15:04 | Outpatient (BNVA) | payer OTHER, SELFPAY | PROVIDERS: PCP Internal Medicine; Visit Provider Orthopaedic Surgery | DX: M17.11 Unilateral primary osteoarthritis, right knee (principal) | CPT/HCPCS: 20610; 99212; J7323 ==

== ENCOUNTER → 2022-06-09 15:02 | Outpatient (BNVA) | payer OTHER, SELFPAY | PROVIDERS: PCP Internal Medicine; Visit Provider Orthopaedic Surgery | DX: M17.11 Unilateral primary osteoarthritis, right knee (principal); M17.12 Unilateral primary osteoarthritis, left knee | CPT/HCPCS: 20610; 99212; J7323 ==

== ENCOUNTER → 2022-06-17 14:46 | Outpatient (BNVA) | payer OTHER, SELFPAY | PROVIDERS: PCP Internal Medicine; Visit Provider Physician Assistant | DX: M17.11 Unilateral primary osteoarthritis, right knee (principal) | CPT/HCPCS: 20610; 99212; J7323 ==

== ENCOUNTER 2022-08-26 15:58 | Outpatient (REF) | payer OTHER, SELFPAY ==
--- NOTE | ~2022-08-26 | US_ITS ---
EXAMINATION: US PELVIS LIMITED (BLADDER) CLINICAL INFORMATION: Unspecified urinary incontinence. COMPARISON: None TECHNIQUE: Real-time imaging of the bladder. FINDINGS: BLADDER: Well distended and normal. Right ureteral jet is demonstrated; left is not. Prevoid bladder volume is 850.4 mL. Postvoid bladder volume is 888.7 mL. The prostate volume is 28.7 mL. US/US bladder IMPRESSION: Significant postvoid residual volume of 888.7 mL. Patient needs a stat bladder catheter. A right ureteral jet was seen. Left is not visualized..
== END 2022-08-26 15:59 | disposition home or self-care (01) ==
LOC: HO.US 15:58
PROVIDERS: PCP Internal Medicine; Visit Provider Internal Medicine
DX: R32 Unspecified urinary incontinence (principal)
CPT/HCPCS: 76857

== ENCOUNTER 2022-08-28 14:59 | Outpatient (REF) | payer OTHER, SELFPAY ==
[2022-08-28 17:41] LABS: Blood Urea Nitrogen 25 mg/dL (9-16); Estimated Glomerular Filt Rate 46
== END 2022-08-28 15:00 | disposition home or self-care (01) ==
LOC: HO.LAB 14:59
PROVIDERS: PCP Internal Medicine; Visit Provider Nurse Practitioner Family
DX: R39.15 Urgency of urination (principal); R33.9 Retention of urine, unspecified; R35.1 Nocturia; Z79.899 Other long term (current) drug therapy
CPT/HCPCS: 36415; 51798; 82565; 84520; 99202

== ENCOUNTER → 2022-09-12 14:49 | Outpatient (BNVA) | payer OTHER, SELFPAY | PROVIDERS: PCP Internal Medicine; Visit Provider Nurse Practitioner Family | DX: N31.9 Neuromuscular dysfunction of bladder, unspecified (principal); R33.9 Retention of urine, unspecified | CPT/HCPCS: 51798; 99212 ==

== ENCOUNTER 2022-09-30 11:07 | Emergency (ER) | payer OTHER, SELFPAY ==
--- NOTE | 2022-09-30 11:36 | ED.GENADULT ---
HPI - General Adult General Chief complaint: Urogenital-Male Stated complaint: Urinary issues Time Seen by Provider: 09/30/22 11:36 Source: patient Mode of arrival: ambulatory Limitations: no limitations History of Present Illness HPI narrative: Patient is a 66 year old assigned male at with a history of urinary issues including BPH and retention presenting to the emergency department today with increased urinary frequency and lower abdominal pain. Patient states that his overnight urination has increased to 30 times a night. Patient states that he does follow with a urologist. Patient denies any dizziness, lightheadedness, nausea, vomiting, fever, chills, blurry vision, double vision, loss of vision, chest pain, difficulty breathing, shortness of breath, back pain, night sweats, pain with urination, syncope or a near syncopal episode, recent trauma or falls, bowel incontinence, bladder incontinence, bowel retention, bladder retention, or any other complaints at this time. Onset (ago): day(s) Location: abdomen Radiation: non-radiation Severity: mild Severity scale (1-10): 3 Quality: aching and dull Pain Consistency: constant Relieving factors: none Exacerbating factors: none Associated symptoms: denies other symptoms Treatments prior to arrival: none Related Data Home Medications Medication Instructions Recorded Confirmed vitamin B complex 1 cap PO DAILY 12/19/21 08/28/22 arginine (L-arginine) 500 mg mg PO 05/12/22 08/28/22 capsule echinacea 380 mg capsule 380 mg PO DAILY 05/12/22 08/28/22 fish oil 400 mg-flaxseed 400 cap PO 05/12/22 08/28/22 mg-prim,blk security support analyst,borag oils 200 mg capsule gingko 1 cap PO .QD 05/12/22 08/28/22 magnesium oxide,aspartate,citr mg PO 05/12/22 08/28/22 Previous Rx's Medication Instructions Recorded walker #1 ea 12/19/21 tamsulosin 0.4 mg capsule 0.8 mg PO DAILY 90 days #180 caps 05/04/22 lithium carbonate 300 mg capsule See Rx Instructions PO .COMPLEX 90 06/02/22 days #270 caps bethanechol chloride 50 mg tablet 50 mg PO BID 30 days #60 tabs 08/28/22 cephalexin 500 mg capsule 500 mg PO Q6H 7 days #28 caps 09/30/22 Allergies Allergy/AdvReac Type Severity Reaction Status Date / Time erythromycin base AdvReac Mild N/V Verified 09/30/22 11:45 [ERYTHROMYCIN BASE] Review of Systems Constitutional: Constitutional: Reports no additional constitutional complaints, Denies chills, Denies fever(s) and Denies night sweats Eyes: Eyes: Reports no additional eye complaints, Denies blurry vision, Denies change in vision, Denies diplopia, Denies eye discharge, Denies loss of vision and Denies eye pain ENT: Denies dizziness Cardiovascular: Cardiovascular: Reports no additional cardiovascular complaints, Denies chest pain, Denies lightheadedness, Denies Loss of Consciousness and Denies dyspnea Respiratory: Respiratory: Reports no additional respiratory complaints and Denies dyspnea Gastrointestinal: Gastrointestinal: Reports no additional gastrointestinal complaints, Reports abdominal pain, Denies melena, Denies hematochezia, Denies change in bowel habits and Denies change in stool character Genitourinary: Genitourinary: Reports no additional male genitourinary complaints, Denies hematuria, Denies oliguria, Denies difficulty urinating, Denies dysuria, Reports urinary frequency, Denies urinary hesitancy, Denies urinary incontinence and Reports urinary urgency Musculoskeletal: Musculoskeletal: Reports no additional musculoskeletal complaints, Denies numbness and Denies tingling Neurologic: Denies dizziness, Denies loss of vision, Denies numbness and Denies tingling Psychiatric: Psychiatric: Reports no additional psychiatric complaints Endocrine: Endocrine: Reports no additional endocrine complaints Hematologic/Lymphatic: Hematologic/Lymphatic: Reports no additional hematologic/lymphatic complaints Allergic/Immunologic: Allergic/Immunologic: Reports no additional allergic/immunologic complaints [facility] Past Medical History Attestation statement: The following information was validated with the patient. Source: old records reviewed and nursing notes reviewed Medical History Arthritis of both knees Ascending aorta dilatation Bipolar 1 disorder BPH (benign prostatic hyperplasia) Bradycardia Erectile dysfunction Osteoarthritis of knees, bilateral Pituitary adenoma Umbilical hernia Urinary incontinence Ventral hernia Vertigo Surgical History H/O colonoscopy History of surgery History of tonsillectomy Skin cancer of face Supraumbilical hernia Family History Family History Father CVD (cardiovascular disease) Mental health disorder Mother Medical history unknown Maternal Aunt Non-Hodgkin lymphoma Paternal Uncle Myocardial infarction Social History Social History Housing: House Are you a primary care transition coordinator to a significant other at home: No Do you presently have visiting nurse or other home services: No Alcohol intake: current Alcohol intake frequency: a few times a week Alcohol type: beer Patient Tobacco Use Status: Former Tobacco user Quit Date: 2003 Tobacco use type: Cigarette Years Smoked: December 2003 Smoked in Last 30 Days: No e-Cigarette/Vaping Use: Never Used Second Hand Smoke Exposure: No Use of substances other than those prescribed or required for medical reasons: No Advance Directives: No Advance Directives Information Provided: Yes service: No Current occupational status: employed 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 Current occupational exposures/hazards: No Cognitive needs: Yes Hearing needs: No Vision needs: Yes Physical Exam ED Vital Signs: Vital Signs - 24 hr 09/30/22 11:40 09/30/22 11:46 09/30/22 13:35 Temperature 98.4 F 97.8 F Pulse Rate 63 55 Respiratory Rate 20 20 17 Blood Pressure 185/102 H 181/102 H Pulse Oximetry 96 97 Oxygen Delivery Method Room Air Room Air BMI result Body Mass Index 25.5 Const General: cooperative, no acute distress, alert and awake Nutritional Appearance: well nourished Orientation/consciousness: patient oriented x3 Limitations: no limitations [facility] Head: Yes normal to inspection and Yes atraumatic Ears: hearing grossly normal bilaterally and external ears normal General nose exam: Normal external nose present, no nasal discharge noted and no epistaxis Face and sinus: Yes normal facial exam, No abrasion and No laceration Mouth: Normal oral and palatal mucosa present, no drooling and no muffled voice Eyes General: appearance normal, both eyes and all related structures Periorbital: periorbital findings normal Eyelids: Yes eyelids normal Conjunctivae: conjunctivae normal Pupils: Equal, round and reactive pupils present EOM: EOMs intact bilaterally Neck Neck: Yes normal visual inspection, Yes full ROM and Yes no lymphadenopathy Chest Chest palpation & inspection: normal inspection of the chest Resp Effort & Inspection: normal respiratory effort and able to speak in complete sentences Auscultation: clear to auscultation bilaterally Cardio Rate: regular rate Rhythm: regular rhythm GI Inspection: Yes normal to inspection Palpation (GI): Soft to palpation, not firm, nontender and no guarding Neuro General: patient oriented x3 and moves all extremities Cranial nerves: Yes Equal, round and reactive pupils present Cognition (Neuro): normal cognition Motor exam (neuro): 5/5 motor strength present throughout Sensory Exam: Normal double simultaneous stimulation for sensation Coordination: [id number] test normal Extrem General: Yes normal to inspection, Yes full ROM and Yes capillary refill normal Psych Appearance: grossly normal Mental Status: mental status grossly normal Affect: normal affect Attitude: cooperative Thought process: Normal thought process present Thought content: Normal thought content present Insight: Good insight present (Psych) Medical Decision Making Medical Decision Making [facility] Narrative: Patient is a 66 year old assigned male at with a history of BPH and urinary retention presenting to the emergency department today with increased urinary frequency and lower abdominal pain. Patient's physical exam was unremarkable. Patient's blood work was unremarkable. Patient's urine showed an acute UTI. I explained my physical exam findings as well as all test results to the patient. I answered all questions asked by the patient. I stressed the importance of the patient taking his medication as prescribed. I stressed the importance of the patient following up with his primary care provider and his urologist. I stressed the importance of the patient returning to the emergency department immediately if his symptoms were to worsen or if he were to develop any dizziness, shortness of breath, difficulty breathing, chest pain, blurry vision, loss of vision, nausea, vomiting, abdominal pain, fever, chills, back pain, or any other complaints. Patient verbalized agreement and understanding with this treatment plan and discharge. Differential Diagnosis Differential Diagnoses: The differential diagnosis associated with the presentation includes UTI Lab Data [facility] Lab Attestation statement: I reviewed the patient's lab results. 09/30/22 12:56 09/30/22 12:56 Labs: Lab Results 09/30/22 09/30/22 09/30/22 Range/Units 11:49 12:56 12:56 WBC 8.8 (4.8-10.8) X10*3/uL RBC 4.19 L (4.60-5.80) X10*6/uL Hgb 12.1 L (14.0-18.0) g/dl Hct 37.5 L (42.0-52.0) % MCV 89.5 (80.0-98.0) fL MCH 28.9 (27.0-33.0) pg MCHC 32.3 (31.0-36.0) g/dl RDW 13.2 (11.0-16.0) % Plt Count 221 (160-400) X10*3/uL MPV 10.9 (9.4-12.4) fL Immature Gran % (Auto) 0.3 (0.0-0.4) % Neut % (Auto) 64.5 (45-73) % Lymph % (Auto) 20.3 (20-40) % [place] % (Auto) 11.4 H (2-11) % Eos % (Auto) 2.7 (0-4) % Baso % (Auto) 0.8 (0-2) % Lymph # (Auto) 1.8 (1.2-4.9) X10*3/uL [place] # (Auto) 1.0 (0.1-1.2) X10*3/uL Eos # (Auto) 0.2 (0.0-0.4) X10*3/uL Baso # (Auto) 0.1 (0.0-0.2) X10*3/uL Abs Immat Gran (auto) 0.03 (0.00-0.03) X10*3/uL Absolute Neuts (auto) 5.7 (2.0-8.3) x10*3/uL Absolute Nucleated RBC 0.000 (0.0-0.012) X10*3/uL Nucleated RBC % (auto) 0.0 (0.0-0.2) /100WBC Sodium 143 (135-145) mmol/L Potassium 4.4 (3.3-5.1) mmol/L Chloride 113 H (96-108) mmol/L Carbon Dioxide 25 (22-29) mmol/L Anion Gap 9 L (12-20) BUN 28 H (9-16) mg/dL Creatinine 1.83 H (0.5-1.4) mg/dL Estim Creat Clear Calc 42.1 Estimated GFR 37 Random Glucose 86 (60-115) mg/dL Calcium 9.0 (8.4-10.2) mg/dL Magnesium 2.9 H (1.6-2.6) mg/dL Total Bilirubin 0.4 (0.0-1.0) mg/dL AST 16 (5-37) U/L ALT 16 (0-40) U/L Alkaline Phosphatase 44 (39-117) U/L Total Protein 5.8 L (6.5-8.0) g/dL Albumin 3.8 (3.5-5.0) g/dL Urine Color Yellow Urine Appearance Cloudy Urine pH 7.0 (5.0-9.0) Ur Specific [place] <= 1.005 (1.005-1.025) Urine Protein Trace (Neg-Trace) mg/dL Urine Glucose (UA) Negative (Negative) mg/dL Urine Ketones Negative (Negative) mg/dL Urine Blood Small (1+) H (Negative) Urine Nitrite Positive H (Negative) Ur Leukocyte Esterase Large (3+) H (Negative) Urine RBC 0-2 (0-2) /HPF Urine WBC >50 H (0-5) /HPF Ur Squamous Epith Cells 0-2 (0-2) /HPF Urine Bacteria 1+ (None Seen) Hyaline Casts 0-2 (0-2) /LPF Discharge Plan Discharge Clinical Impression: Urinary tract infection Patient Disposition: Home, Self-Care Instructions: Urinary Tract Infection in Men (DC) Additional Instructions: Follow up with your primary care provider and your urologist. Return to the emergency department immediately if your symptoms worsen or if you develop any dizziness, shortness of breath, difficulty breathing, chest pain, blurry vision, loss of vision, nausea, vomiting, abdominal pain, fever, chills, back pain, or any other complaints. Prescriptions: New cephalexin 500 mg capsule 500 mg PO Q6H 7 Days Qty: 28 0RF [facility] See Rx Instructions .ROUTE .MEDSUPPLY Qty: 1 0RF Rx Instructions: Folding front wheeled walker tamsulosin 0.4 mg capsule 0.8 mg PO DAILY 90 Days Qty: 180 2RF lithium carbonate 300 mg capsule See Rx Instructions PO .COMPLEX 90 Days Qty: 270 1RF Rx Instructions: 2 caps in am and 1 cap noon orally; vitamin B complex [B Complex] Capsule 1 cap PO DAILY arginine (L-arginine) 500 mg capsule PO echinacea 380 mg capsule 380 mg PO DAILY Rx Instructions: administer with meals gingko 1 cap PO .QD fish,flaxseed oil-e.prim-bcurr 400-400-200 mg capsule PO magnesium oxide,aspartate,citr 400 mg magnesium capsule PO bethanechol chloride 50 mg tablet 50 mg PO BID 30 Days Qty: 60 1RF Referrals: [facility] [Provider Group] Everardo,Tavares Wood MD [Primary Care Provider] - Interventions: ED Discharge Assessment Last Done: 09/30/22 13:39 Print Language: Haitian
[2022-09-30 11:40] VITALS: BP 185/102; PULSE 63; RESP 20; TEMP 36.9; O2SAT 96; BMI 25.5
[2022-09-30 11:46] VITALS: RESP 20
[2022-09-30 11:55] LABS: Appearance Urine Cloudy; Color Urine Yellow; Glucose Urine UA Negative (Negative); Leukocyte Esterase Urine Large (3+) (Negative); Nitrite Urine Positive (Negative); Specific Gravity - Urine <= 1.005 (1.005-1.025); UMIC TRIGGER UACC YES; Urine Blood Small (1+) (Negative); Urine Ketones Negative (Negative); Urine Protein Trace mg/dL (Neg-Trace)
[2022-09-30 12:05] LABS: Bacteria Urine 1+ (None Seen); Hyaline Casts Urine 0-2 /LPF (0-2); RBC Urine 0-2 /HPF (0-2); Squamous Epithelial Cell Urine 0-2 /HPF (0-2); UACC Culture Trigger YES; WBC Urine >50 /HPF (0-5)
[2022-09-30 13:02] LABS: MANUAL DIFF FLAG NO
[2022-09-30 13:04] LABS: Basophils Absolute Auto 0.1 X10*3/uL (0.0-0.2); Basophils Percent Auto 0.8 % (0-2); Eosinophils Absolute Auto 0.2 X10*3/uL (0.0-0.4); Eosinophils Percent Auto 2.7 % (0-4); Hematocrit 37.5 % (42.0-52.0); Hemoglobin 12.1 g/dl (14.0-18.0); Imm Gran Abs Auto 0.03 X10*3/uL (0.00-0.03); Imm Gran Pct Auto 0.3 % (0.0-0.4); Lymphocytes Absolute Auto 1.8 X10*3/uL (1.2-4.9); Lymphocytes Percent Auto 20.3 % (20-40); Mean Corpuscular HGB Conc 32.3 g/dl (31.0-36.0); Mean Corpuscular Hemoglobin 28.9 pg (27.0-33.0); Mean Corpuscular Volume 89.5 fL (80.0-98.0); Mean Platelet Volume 10.9 fL (9.4-12.4); Monocytes Percent Auto 11.4 % (2-11); Neutrophils Absolute Auto 5.7 x10*3/uL (2.0-8.3); Neutrophils Percent Auto 64.5 % (45-73); Platelet Count 221 X10*3/uL (160-400); Red Blood Count 4.19 X10*6/uL (4.60-5.80); Red Cell Distribution Width 13.2 % (11.0-16.0); White Blood Count 8.8 X10*3/uL (4.8-10.8)
[2022-09-30 13:19] LABS: Alanine Aminotransferase 16 U/L (0-40); Albumin Level 3.8 g/dL (3.5-5.0); Alkaline Phosphatase 44 U/L (39-117); Anion Gap 9 (12-20); Aspartate Amino Transferase 16 U/L (5-37); Bilirubin Total 0.4 mg/dL (0.0-1.0); Blood Urea Nitrogen 28 mg/dL (9-16); Carbon Dioxide 25 mmol/L (22-29); Chloride 113 mmol/L (96-108); Creatinine Clr Calc Pharmacy 42.1; Estimated Glomerular Filt Rate 37; Glucose Random 86 mg/dL (60-115); Magnesium 2.9 mg/dL (1.6-2.6); Potassium 4.4 mmol/L (3.3-5.1); Sodium 143 mmol/L (135-145); Total Protein 5.8 g/dL (6.5-8.0)
[2022-09-30 13:35] VITALS: BP 181/102; PULSE 55; RESP 17; TEMP 36.6; O2SAT 97
== END 2022-09-30 13:39 | disposition home or self-care (01) ==
PROVIDERS: Physician Assistant Medical; Emergency Provider Emergency Medicine; PCP Internal Medicine
DX: N39.0 Urinary tract infection, site not specified (principal); Z79.899 Other long term (current) drug therapy
CPT/HCPCS: 36415; 80053; 81001; 83735; 85025; 87086; 99283; 99284

== ENCOUNTER 2022-10-20 17:46 | Emergency (ER) | payer OTHER, SELFPAY ==
[2022-10-20 17:51] VITALS: BP 151/81; PULSE 57; RESP 18; TEMP 37.1; O2SAT 96; BMI 23.2
--- NOTE | 2022-10-20 17:51 | ED_ITS ---
HPI - General Adult General Chief complaint: Urogenital-Male <JUAQUIN Russo - Last Filed: 10/20/22 17:56> Stated complaint: kidney bag leaking <JUAQUIN Russo - Last Filed: 10/20/22 17:56> Time Seen by Provider: 10/20/22 18:04 <JUAQUIN Russo - Last Filed: 10/20/22 17:56> Source: patient, RN notes reviewed and old records reviewed <Karan Mayen - Last Filed: 10/20/22 19:10> Mode of arrival: ambulatory <Karan Mayen - Last Filed: 10/20/22 19:10> History of Present Illness HPI narrative: 66-year-old male past medical history significant for neurogenic bladder, BPH with chronic Castellano, bipolar disorder who presents for evaluation of ?my Castellano bag is broken. ? Patient follows with [facility]. He is due to see them next on November 13, 2022. He reports that well changing his Castellano ?a small blue piece broke off of the top of the bag. Reports this happened earlier today. He has no leaking from around the Castellano catheter insertion site Denies any fevers, chills, pain No other complaints or concerns at this time <Karan Mayen - Last Filed: 10/20/22 19:10> Related Data Home medications: Home Medications Medication Instructions Recorded Confirmed vitamin B complex 1 cap PO DAILY 12/19/21 08/28/22 arginine (L-arginine) 500 mg mg PO 05/12/22 08/28/22 capsule echinacea 380 mg capsule 380 mg PO DAILY 05/12/22 08/28/22 fish oil 400 mg-flaxseed 400 cap PO 05/12/22 08/28/22 mg-prim,blk optics manufacturing technician,borag oils 200 mg capsule gingko 1 cap PO .QD 05/12/22 08/28/22 magnesium oxide,aspartate,citr mg PO 05/12/22 08/28/22 Previous Rx's Medication Instructions Recorded walker #1 ea 12/19/21 tamsulosin 0.4 mg capsule 0.8 mg PO DAILY 90 days #180 caps 05/04/22 bethanechol chloride 50 mg tablet 50 mg PO BID 30 days #60 tabs 08/28/22 cephalexin 500 mg capsule 500 mg PO Q6H 7 days #28 caps 09/30/22 lithium carbonate 300 mg capsule See Rx Instructions PO .COMPLEX 90 10/16/22 days #270 caps <JUAQUIN Russo - Last Filed: 10/20/22 17:56> Allergies/adverse reactions: Allergies Allergy/AdvReac Type Severity Reaction Status Date / Time erythromycin base AdvReac Mild N/V Verified 10/20/22 17:51 [ERYTHROMYCIN BASE] <JUAQUIN Russo - Last Filed: 10/20/22 17:56> Review of Systems Constitutional: Constitutional: Reports as per HPI, Denies chills, Denies fatigue, Denies fever(s) and Denies headache(s) <Karan Mayen - Last Filed: 10/20/22 19:10> ENT: Denies headache(s) <Karan Mayen - Last Filed: 10/20/22 19:10> Cardiovascular: Cardiovascular: Denies chest pain and Denies dyspnea <Richard Mayen - Last Filed: 10/20/22 19:10> Respiratory: Respiratory: Denies cough and Denies dyspnea <Karan Mayen - Last Filed: 10/20/22 19:10> Gastrointestinal: Gastrointestinal: Denies abdominal pain, Denies constipation and Denies vomiting <Karan Mayen - Last Filed: 10/20/22 19:10> Genitourinary: Genitourinary: Denies difficulty urinating and Denies dysuria <Karan Mayen - Last Filed: 10/20/22 19:10> Neurologic: Denies headache(s) and Denies focal weakness <Karan Mayen - Last Filed: 10/20/22 19:10> Endocrine: Endocrine: Denies fatigue <Karan Mayen - Last Filed: 10/20/22 19:10> [facility] Past Medical History Medical History: Medical History Arthritis of both knees Ascending aorta dilatation Bipolar 1 disorder BPH (benign prostatic hyperplasia) Bradycardia Erectile dysfunction Osteoarthritis of knees, bilateral Pituitary adenoma Umbilical hernia Urinary incontinence Ventral hernia Vertigo <JUAQUIN Russo - Last Filed: 10/20/22 17:56> Surgical History: Surgical History H/O colonoscopy History of surgery History of tonsillectomy Skin cancer of face Supraumbilical hernia <JUAQUIN Russo - Last Filed: 10/20/22 17:56> Family History Family History: Family History Father CVD (cardiovascular disease) Mental health disorder Mother Medical history unknown Maternal Aunt Non-Hodgkin lymphoma Paternal Uncle Myocardial infarction <JUAQUIN Russo - Last Filed: 10/20/22 17:56> Social History Social History: Social History Housing: House Are you a primary critical care educator to a significant other at home: No Do you presently have visiting nurse or other home services: No Alcohol intake: current Alcohol intake frequency: a few times a week Alcohol type: beer Patient Tobacco Use Status: Former Tobacco user Quit Date: 2003 Tobacco use type: Cigarette Years Smoked: December 2003 e-Cigarette/Vaping Use: Never Used Second Hand Smoke Exposure: No Advance Directives: No Advance Directives Information Provided: Yes service: No Current occupational status: employed 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 Current occupational exposures/hazards: No Cognitive needs: Yes Hearing needs: No Vision needs: Yes <JUAQUIN Russo - Last Filed: 10/20/22 17:56> Physical Exam ED Vital Signs: Vital Signs - 24 hr 10/20/22 17:51 Temperature 98.8 F Pulse Rate 57 Respiratory Rate 18 Blood Pressure 151/81 H Pulse Oximetry 96 Oxygen Delivery Method Room Air BMI result Body Mass Index 23.2 <JUAQUIN Russo - Last Filed: 10/20/22 17:56> Vital Signs - 24 hr 10/20/22 17:51 Temperature 98.8 F Pulse Rate 57 Respiratory Rate 18 Blood Pressure 151/81 H Pulse Oximetry 96 Oxygen Delivery Method Room Air BMI result Body Mass Index 23.2 <Karan Mayen - Last Filed: 10/20/22 19:10> Const General: healthy appearing, comfortable, no acute distress, alert and awake <Karan Mayen - Last Filed: 10/20/22 19:10> Nutritional Appearance: well nourished <Karan Last Filed: 10/20/22 19:10> Orientation/consciousness: patient oriented x3 <Karan Last Filed: 10/20/22 19:10> HENMT Head: Yes normocephalic and Yes atraumatic < Last Filed: 10/20/22 19:10> Throat: Yes posterior oropharynx normal < Last Filed: 10/20/22 19:10> Eyes Eyelids: Yes eyelids normal < Last Filed: 10/20/22 19:10> Conjunctivae: conjunctivae normal < Last Filed: 10/20/22 19:10> Sclerae: sclerae normal < Last Filed: 10/20/22 19:10> Corneas: corneas normal < Last Filed: 10/20/22 19:10> Pupils: Equal, round and reactive pupils present < Last Filed: 10/20/22 19:10> EOM: EOMs intact bilaterally < Last Filed: 10/20/22 19:10> Neck Neck: Yes full ROM < Last Filed: 10/20/22 19:10> Resp Effort & Inspection: normal respiratory effort, able to speak in complete sentences, no audible wheezes and not labored < Last Filed: 10/20/22 19:10> Cardio Rate: regular rate < Last Filed: 10/20/22 19:10> Rhythm: regular rhythm < Last Filed: 10/20/22 19:10> Skin General skin exam: no rashes or lesions noted and elasticity normal < Last Filed: 10/20/22 19:10> Neuro General: patient oriented x3 < Last Filed: 10/20/22 19:10> Cranial nerves: Yes Equal, round and reactive pupils present and Yes Bilaterally intact EOM present <Karan Mayen - Last Filed: 10/20/22 19:10> Cognition (Neuro): normal cognition <Karan Mayen - Last Filed: 10/20/22 19:10> Extrem Other: Moving all extremities well without any obvious deformities <Karan Mayen - Last Filed: 10/20/22 19:10> Course Course Course Narrative: RME - 66 yo male neurogenic bladder, urinary retention, BPH, bipolar who presents to ER for evaluation of a leaking Castellano that started this afternoon. Plan: exam and evaluation in [facility], probable replacement of Castellano <JUAQUIN Russo - Last Filed: 10/20/22 17:56> Medical Decision Making Medical Decision Making [facility] Narrative: Patient reports that the Castellano catheter is actually function properly, however he broke a piece off of the bag. The urine is clear, yellow. There is no leaking around the Castellano catheter insertion site. Will replace the patient's Castellano catheter bag, I do not see any indication to replace the patient's actual catheter. He will follow-up with urology <Karan Mayen - Last Filed: 10/20/22 19:10> Differential Diagnosis Castellano catheter malfunction Urinary retention BPH Neurogenic bladder <Karan Mayen - Last Filed: 10/20/22 19:10> Discharge Plan Discharge Clinical Impression: Malfunction of Castellano catheter <JUAQUIN Russo - Last Filed: 10/20/22 17:56> Patient Disposition: Home, Self-Care <JUAQUIN Russo - Last Filed: 10/20/22 17:56> Instructions: Enlarged Prostate (BPH) (ED) <JUAQUIN Russo - Last Filed: 10/20/22 17:56> Additional Instructions: Follow-up with urology as currently planned <JUAQUIN Russo - Last Filed: 10/20/22 17:56> Prescriptions[facility] Instructions .ROUTE .MEDSUPPLY Qty: 1 0RF Rx Instructions: Folding front wheeled walker tamsulosin 0.4 mg capsule 0.8 mg PO DAILY 90 Days Qty: 180 2RF lithium carbonate 300 mg capsule See Rx Instructions PO .COMPLEX 90 Days Qty: 270 1RF Rx Instructions: 2 caps in am and 1 cap noon orally; vitamin B complex [B Complex] Capsule 1 cap PO DAILY cephalexin 500 mg capsule 500 mg PO Q6H 7 Days Qty: 28 0RF arginine (L-arginine) 500 mg capsule PO echinacea 380 mg capsule 380 mg PO DAILY Rx Instructions: administer with meals gingko 1 cap PO .QD fish,flaxseed oil-e.prim-bcurr 400-400-200 mg capsule PO magnesium oxide,aspartate,citr 400 mg magnesium capsule PO bethanechol chloride 50 mg tablet 50 mg PO BID 30 Days Qty: 60 1RF <JUAQUIN Russo - Last Filed: 10/20/22 17:56>
== END 2022-10-20 19:38 | disposition home or self-care (01) ==
PROVIDERS: Emergency Provider Emergency Medicine; PCP Internal Medicine
DX: T83.098A Other mechanical complication of other urinary catheter, initial encounter (principal); Y73.8 Miscellaneous gastroenterology and urology devices associated with adverse incidents, not elsewhere classified; Y92.9 Unspecified place or not applicable
CPT/HCPCS: 99282

== ENCOUNTER 2022-11-01 04:59 | Emergency (ER) | payer OTHER, SELFPAY ==
[2022-11-01 05:09] VITALS: BP 114/62; PULSE 55; RESP 16; TEMP 36.9; O2SAT 98; BMI 24.4
[2022-11-01 05:25] VITALS: BP 130/63; PULSE 58; RESP 17; TEMP 36.7; O2SAT 98
[2022-11-01 05:43] LABS: Hematocrit 38.3 % (42.0-52.0); Hemoglobin 12.3 g/dl (14.0-18.0); Mean Corpuscular HGB Conc 32.1 g/dl (31.0-36.0); Mean Corpuscular Hemoglobin 29.3 pg (27.0-33.0); Mean Corpuscular Volume 91.2 fL (80.0-98.0); Mean Platelet Volume 11.5 fL (9.4-12.4); Platelet Count 203 X10*3/uL (160-400); Red Cell Distribution Width 13.2 % (11.0-16.0); White Blood Count 13.4 X10*3/uL (4.8-10.8)
[2022-11-01 06:02] LABS: Alanine Aminotransferase 19 U/L (0-40); Albumin Level 3.7 g/dL (3.5-5.0); Alkaline Phosphatase 50 U/L (39-117); Anion Gap 10 (12-20); Aspartate Amino Transferase 18 U/L (5-37); Bilirubin Total 0.7 mg/dL (0.0-1.0); Blood Urea Nitrogen 21 mg/dL (9-16); Calcium 9.4 mg/dL (8.4-10.2); Carbon Dioxide 26 mmol/L (22-29); Chloride 109 mmol/L (96-108); Creatinine Clr Calc Pharmacy 54.3; Estimated Glomerular Filt Rate 51; Glucose Random 105 mg/dL (60-115); Potassium 4.6 mmol/L (3.3-5.1); Sodium 140 mmol/L (135-145); Total Protein 5.8 g/dL (6.5-8.0)
--- NOTE | 2022-11-01 06:30 | PC.NURSE ---
Pt A&Ox4, reports 6/10 bladder pain, pt has naqvi leg bag with blood in urine. [address]vi placed by Dr. Gao, pt tolerated well. Urine collected and sent to lab. CBI started, draining light pink fluid, Dr. Gao notified.
--- NOTE | 2022-11-01 06:36 | ED_ITS ---
HPI - General Adult General Chief complaint: General Medical Stated complaint: Blood in urine, catheter bag Time Seen by Provider: 11/01/22 05:35 History of Present Illness HPI narrative: Patient is a 67-year-old male with a history of urinary retention in the past. History of neurogenic bladder. Patient has a chronic indwelling Castellano. Over last 24-48 hours noted bloody urine. No clots. But unable to see through has a funny smell. Patient came to the ED for help. Normally sees a urology group in [place]. Patient not on any blood thinners. On tamsulosin and finasteride. No fever no chills no cough and congestion. History of BPH. History of bipolar on lithium. 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,borag oils 200 mg capsule gingko 1 cap PO .QD 05/12/22 08/28/22 magnesium oxide,aspartate,citr mg PO 05/12/22 08/28/22 Previous Rx's Medication Instructions Recorded walker #1 ea 12/19/21 tamsulosin 0.4 mg capsule 0.8 mg PO DAILY 90 days #180 caps 05/04/22 bethanechol chloride 50 mg tablet 50 mg PO BID 30 days #60 tabs 08/28/22 cephalexin 500 mg capsule 500 mg PO Q6H 7 days #28 caps 09/30/22 lithium carbonate 300 mg capsule See Rx Instructions PO .COMPLEX 90 10/16/22 days #270 caps sulfamethoxazole 800 1 tab PO BID 10 days #20 tabs 11/01/22 mg-trimethoprim 160 mg tablet (Bactrim DS) Allergies Allergy/AdvReac Type Severity Reaction Status Date / Time erythromycin base AdvReac Mild N/V Verified 10/20/22 17:51 [ERYTHROMYCIN BASE] Review of Systems Review of Systems: No fever no chills no diaphoresis Yes all other systems are reviewed and are negative PMFSH Past Medical History Attestation statement: The following information was validated with the patient. Medical History Arthritis of both knees Ascending aorta dilatation Bipolar 1 disorder BPH (benign prostatic hyperplasia) Bradycardia Erectile dysfunction Osteoarthritis of knees, bilateral Pituitary adenoma Umbilical hernia Urinary incontinence Ventral hernia Vertigo Surgical History H/O colonoscopy History of surgery History of tonsillectomy Skin cancer of face Supraumbilical hernia Family History Family History Father CVD (cardiovascular disease) Mental health disorder Mother Medical history unknown Maternal Aunt Non-Hodgkin lymphoma Paternal Uncle Myocardial infarction Social History Social History Housing: House Are you a primary account executive healthcare to a significant other at home: No Do you presently have visiting nurse or other home services: No Alcohol intake: current Alcohol intake frequency: a few times a week Alcohol type: beer Patient Tobacco Use Status: Former Tobacco user Quit Date: 2003 Tobacco use type: Cigarette Years Smoked: December 2003 e-Cigarette/Vaping Use: Never Used Second Hand Smoke Exposure: No Advance Directives: No Advance Directives Information Provided: No service: No Current occupational status: employed 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 Oriented X3. No acute distress. Eyes: Pupils equal, round and reactive to light. ENT: Pharynx normal. Neck: Normal inspection. Neck supple. No lymph nodes noted. No crepitus CVS: Normal heart rate and rhythm. Pulses normal. Normal S1 and S2 Respiratory: No respiratory distress. Breath sounds normal. No Wheezing. No rales Abdomen: Soft and nontender. No rigidity. No distention. good BS x4 Skin: Skin warm and dry. Normal skin color. Normal skin turgor. Extremities: No lower extremity edema. Neurovascular intact to all extremities. No Lacerations. No Rash Neuro: Oriented X 3. No motor deficit. No sensory deficit. Moving all extermities. No slurred speech Medications Administered Discontinued Medications Generic Name Dose Route Start Last Admin Trade Name Layla PRN Reason Stop Dose Admin Lidocaine HCl 10 ml 11/01/22 06:01 11/01/22 06:43 Lidocaine Hcl 2 % Urojet 10 Ml Jel.Pf.Justin TOPICAL 11/01/22 06:02 10 ml ONCE ONE Administration Medical Decision Making Medical Decision Making [facility] Narrative: Well appearing not acutely distressed positive bloody urine appear darker in color. There is no gross thought noted. A [address] way Castellano was placed by myself. . The old Castellano catheter was deflated subsequently removed. Penis was cleaned. Subsequently a [address] Castellano catheter was placed. Tuft up the balloon to 10 cc. Positive bloody urine noted. No complications. Patient's urine being sent off to check for UTI. Continuous bladder irrigation was started. There was no complications. Awaiting urine results. Patient's hemoglobin is normal at 12. No signs of anemia. Patient's BUN creatinine shows a creatinine of 1.2. Currently awaiting results of the total bladder irrigation. Awaiting results of the urinalysis.. 07:00 patient's urine grossly infected. Will start patient on a dose of Rocephin. A prescription for Bactrim. Patient to be discharged home. Close follow-up with Urology on an outpatient basis. Differential Diagnosis Differential Diagnoses: The differential diagnosis associated with the presentation includes Urinary tract infection Lab Data [facility] Lab Attestation statement: I reviewed the patient's lab results. 11/01/22 05:37 11/01/22 05:37 Labs: Lab Results 11/01/22 11/01/22 11/01/22 Range/Units 05:37 05:37 06:34 WBC 13.4 H (4.8-10.8) X10*3/uL RBC 4.20 L (4.60-5.80) X10*6/uL Hgb 12.3 L (14.0-18.0) g/dl Hct 38.3 L (42.0-52.0) % MCV 91.2 (80.0-98.0) fL MCH 29.3 (27.0-33.0) pg MCHC 32.1 (31.0-36.0) g/dl RDW 13.2 (11.0-16.0) % Plt Count 203 (160-400) X10*3/uL MPV 11.5 (9.4-12.4) fL Absolute Nucleated RBC 0.000 (0.0-0.012) X10*3/uL Nucleated RBC % (auto) 0.0 (0.0-0.2) /100WBC Sodium 140 (135-145) mmol/L Potassium 4.6 (3.3-5.1) mmol/L Chloride 109 H (96-108) mmol/L Carbon Dioxide 26 (22-29) mmol/L Anion Gap 10 L (12-20) BUN 21 H (9-16) mg/dL Creatinine 1.40 (0.5-1.4) mg/dL Estim Creat Clear Calc 54.3 Estimated GFR 51 Random Glucose 105 (60-115) mg/dL Calcium 9.4 (8.4-10.2) mg/dL Total Bilirubin 0.7 (0.0-1.0) mg/dL AST 18 (5-37) U/L ALT 19 (0-40) U/L Alkaline Phosphatase 50 (39-117) U/L Total Protein 5.8 L (6.5-8.0) g/dL Albumin 3.7 (3.5-5.0) g/dL Urine Color RED Urine Appearance Hazy Urine pH 8.5 (5.0-9.0) Ur Specific [place] 1.015 (1.005-1.025) Urine Protein 100 (2+) H (Neg-Trace) mg/dL Urine Glucose (UA) Negative (Negative) mg/dL Urine Ketones Negative (Negative) mg/dL Urine Blood Large (3+) H (Negative) Urine Nitrite Negative (Negative) Ur Leukocyte Esterase Large (3+) H (Negative) Independent Historian Clinical information obtained from an independent historian. History obtained from or confirmed by: Spouse External Record Review External record reviewed: Inpatient record Chronic Conditions Enlarged prostate, bipolar Discharge Plan Discharge Clinical Impression: Hematuria, Urinary tract infection Patient Disposition: Still a Patient Instructions: Urinary Tract Infection in Men (DC), Hematuria (ED) Prescriptions: New sulfamethoxazole-trimethoprim [Bactrim DS] 800-160 mg tablet 1 tab PO BID 10 Days Qty: 20 0RF No Action (DME) walker Misc See Rx Instructions .ROUTE .MEDSUPPLY Qty: 1 0RF Rx Instructions: Folding front wheeled walker tamsulosin 0.4 mg capsule 0.8 mg PO DAILY 90 Days Qty: 180 2RF lithium carbonate 300 mg capsule See Rx Instructions PO .COMPLEX 90 Days Qty: 270 1RF Rx Instructions: 2 caps in am and 1 cap noon orally; vitamin B complex [B Complex] Capsule 1 cap PO DAILY cephalexin 500 mg capsule 500 mg PO Q6H 7 Days Qty: 28 0RF arginine (L-arginine) 500 mg capsule PO echinacea 380 mg capsule 380 mg PO DAILY Rx Instructions: administer with meals gingko 1 cap PO .QD fish,flaxseed oil-e.prim-bcurr 400-400-200 mg capsule PO magnesium oxide,aspartate,citr 400 mg magnesium capsule PO bethanechol chloride 50 mg tablet 50 mg PO BID 30 Days Qty: 60 1RF Referrals: Physician,Unknown J [Physician] - (Please follow-up with your urologist in 2-3 days)
[2022-11-01] MEDS: Lidocaine HCl 2 % Urojet 10 ML JEL.PF.APP TOPICAL (06:43)
[2022-11-01 06:50] LABS: Appearance Urine Hazy; Color Urine RED; Glucose Urine UA Negative (Negative); Leukocyte Esterase Urine Large (3+) (Negative); PH 8.5 (5.0-9.0); Specific Gravity - Urine 1.015 (1.005-1.025); UMIC TRIGGER UACC YES; Urine Blood Large (3+) (Negative); Urine Ketones Negative (Negative); Urine Protein 100 (2+) mg/dL (Neg-Trace)
[2022-11-01 06:55] LABS: Nitrite Urine Negative (Negative)
[2022-11-01 07:21] VITALS: BP 130/68; PULSE 47; RESP 14; TEMP 36.8; O2SAT 97
[2022-11-01 07:49] VITALS: BP 117/62; PULSE 52; RESP 16; TEMP 36.8; O2SAT 95
--- NOTE | 2022-11-01 07:54 | PC.NURSE ---
Addendum entered by Edwina Del Rio 11/01/22 07:57: pt's not daughter at bedside. () dara medrano ([phone]. 2nd bag of cbi to be infusing. Original Note: pt a/o x 4 no sob/mayra noted speaks in full sentences. 3 way naqvi patent and draining very light pink/clear urine. no edema noted. pt/daughter aware of plan of care.
[2022-11-01 07:59] LABS: Bacteria Urine None Seen (None Seen); Hyaline Casts Urine 0-2 /LPF (0-2); RBC Urine >20 /HPF (0-2); Squamous Epithelial Cell Urine 0-2 /HPF (0-2); UACC Culture Trigger YES
[2022-11-01] MEDS: cefTRIAXone sodium 1 GM in 0.9 % Sodium Chloride 50 ML IV (08:41)
--- NOTE | 2022-11-01 09:55 | PC.NURSE ---
pt's called for d/c home. cbi d/c'd per dr. tinsley, urine is very light pink/clear, no sediments noted. pt received 2 bags for his cbi.
[2022-11-01 10:39] VITALS: BP 108/59; PULSE 51; RESP 16; TEMP 37.1; O2SAT 98
== END 2022-11-01 10:44 | disposition home or self-care (01) ==
PROVIDERS: Emergency Provider Emergency Medicine Emergency Medical Services; PCP Internal Medicine
DX: N39.0 Urinary tract infection, site not specified (principal); R31.9 Hematuria, unspecified; Z96.0 Presence of urogenital implants
CPT/HCPCS: 36415; 51798; 80053; 81001; 85027; 87086; 87088; 87186; 96365; 96366; 99284; J0696

== ENCOUNTER 2023-03-07 15:23 | Emergency (ER) | payer MEDICARE, SELFPAY ==
--- NOTE | ~2023-03-07 | XR_ITS ---
EXAMINATION: XR SHOULDER, RIGHT CLINICAL INFORMATION: Pain COMPARISON: None available. TECHNIQUE: AP external rotation, Grashey, scapular Y, and axillary views of the right shoulder. FINDINGS: Mild degenerative changes seen within the glenohumeral joint with small marginal osteophytosis. Hypertrophic degenerative changes in the acromioclavicular joint is well. No acute fracture or dislocation. Old healed right-sided rib fractures incidentally noted. XR/XR shoulder RT min 2V IMPRESSION: Mild degenerative changes. No acute fracture or dislocation.
[2023-03-07 16:06] VITALS: BP 136/72; PULSE 47; RESP 17; TEMP 36.4; O2SAT 95; BMI 25.1
--- NOTE | 2023-03-07 16:16 | ED_ITS ---
HPI - Extremity Injury (Upper) General Chief Complaint: Extremity Injury, Upper Stated Complaint: right shoulder inj Time Seen by Provider: 03/07/23 17:05 Source: patient Mode of arrival: ambulatory Limitations: no limitations History of Present Illness HPI narrative: 67-year-old male history of memory changes, neurogenic bladder, bipolar, BPH, chronic anemia presenting to the emergency department complaints of right shoulder pain since Thursday night, at approximately 06:30, patient tripped, he states he was walking in his living room there is a divot, he fell onto his right side, tried to catch himself on a night stand, hit his shoulder on the nightstand. Since then has been having pain to right shoulder, he says pain is boring in nature, intermittent, worse with movement. He reports he still been a ble to workout despite this pain. Did not hit his head or lose consciousness. Not on blood thinners. No other injury sustained. Denies preceding symptoms to fall. 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,borag oils 200 mg capsule gingko 1 cap PO .QD 05/12/22 08/28/22 magnesium oxide,aspartate,citr mg PO 05/12/22 08/28/22 finasteride 5 mg tablet 5 mg PO DAILY 11/10/22 Previous Rx's Medication Instructions Recorded walker #1 ea 12/19/21 tamsulosin 0.4 mg capsule 0.8 mg (2 x 0.4 mg) PO DAILY 90 05/04/22 days #180 caps bethanechol chloride 50 mg tablet 50 mg PO BID 30 days #60 tabs 08/28/22 lithium carbonate 300 mg capsule See Rx Instructions PO .COMPLEX 90 02/16/23 days #270 caps acetaminophen 325 mg capsule 650 mg (2 x 325 mg) PO Q6H PRN 03/07/23 (Tylenol) pain #20 caps lidocaine 5 % topical patch 2 patch topical DAILY #15 ea 03/07/23 (Lidoderm) Allergies Allergy/AdvReac Type Severity Reaction Status Date / Time erythromycin base AdvReac Mild N/V Verified 11/10/22 15:36 [ERYTHROMYCIN BASE] Review of Systems Review of Systems: Constitutional : No Weight loss, No Fever, No Chills, No Fatigue, No Malaise ENT/Mouth : No sore throat, No Rhinorrhea Eyes: No Eye Pain, No Swelling, No Redness Cardiovascular : No Chest Pain, No SOB, No Dyspnea on Exertion, No Orthopnea, No Edema, No Palpitations Respiratory : No Cough, No Sputum, No Wheezing Gastrointestinal : No Nausea, No Vomiting, No Diarrhea, No Constipation, No abdominal Pain, No Hematochezia, No Melena Genitourinary : No Dysuria, No Urinary Frequency, No Hematuria, Musculoskeletal : + joint pain, No Myalgias, No Joint Swelling Skin : No Skin Lesions, No rash Neuro : No Weakness, No Numbness, No Dizziness, No Headache Psych : No Anxiety/Panic, No Depression All other systems reviewed and are negative Yes all other systems are reviewed and are negative [facility] Past Medical History Attestation statement: The following information was validated with the patient. Source: old records reviewed and nursing notes reviewed Medical History Urinary incontinence Arthritis of left knee Pre-operative clearance Osteoarthritis of right knee Impacted cerumen of right ear TSH elevation Right knee pain Primary osteoarthritis of right knee Bradycardia Onychomycosis High thyroid stimulating hormone (TSH) level Pituitary adenoma Umbilical hernia Ascending aorta dilatation Erectile dysfunction Osteoarthritis of knees, bilateral BPH (benign prostatic hyperplasia) Bipolar 1 disorder Shoulder pain Surgical History H/O colonoscopy Supraumbilical hernia History of surgery Skin cancer of face History of tonsillectomy Family History Family History Father CVD (cardiovascular disease) Mental health disorder Mother Medical history unknown Maternal Aunt Non-Hodgkin lymphoma Paternal Uncle Myocardial infarction Social History Social History Housing: House Are you a primary elderly caregiver to a significant other at home: No Do you presently have visiting nurse or other home services: No Alcohol intake: never Patient Tobacco Use Status: Former Tobacco user Quit Date: 2003 Tobacco use type: Cigarette Years Smoked: December 2003 e-Cigarette/Vaping Use: Never Used Second Hand Smoke Exposure: No Advance Directives: No Advance Directives Information Provided: No service: No Current occupational status: employed 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 Oriented X3.? No acute distress.? Head: Normocephalic, atraumatic, no step-offs or deformities Eyes: Pupils equal, round and reactive to light.? CVS: Normal heart rate and rhythm.? Pulses normal.? Respiratory: No respiratory distress.? Breath sounds normal.? Abdomen: Soft and nontender.? Skin: Skin warm and dry.? Normal skin color.? Normal skin turgor.? Extremities: No lower extremity edema.? No calf ttp. 5/5 strength to bilateral upper and lower extremities . Full painless range of motion to bilateral shoulders, no wrist drop. 2+ radial pulses equal bilateral. Normal sensation distally. No step-offs or deformities on palpation. Normal capillary refill less than 2 seconds To bilateral upper extremities. Neuro: Oriented X 3.? No motor deficit.? No sensory deficit. CN 2-12 intact Course Course Course Narrative: This is an RME: Additional HPI, ROS, PE not included below will be deferred to primary provider. This is a [id number]-male, with a history of neurogenic bladder, osteoar thritis, bipolar disorder, presenting to the emergency department with complaints of right shoulder pain x 3 days. He states that he was at a bible study and did not notice a step, and he fell to the side and landed onto his side table. He denies hitting his head or loss of consciousness. Good radial pulse. Plan: Shoulder x-ray Reevaluation(s) Reevaluation #1: patient's x-ray mild degenerative changes no fracture dislocation. Tylenol Lidoderm patch given to patient when he will be sent home with same. Educated patient on diagnosis and treatment plan, answered all question, patient verbalizes understanding. At this time patient will be discharged home, advised to return with new or worsening symptoms. Educated on worrisome signs and symptoms and when to return. At this time I feel comfortable discharge home. Time: 17:42 Medical Decision Making Medical Decision Making [facility] Narrative: 1725 67-year-old male presents with right shoulder pain status post fall. No preceding symptoms to fall. Not on blood thinners. Physical exam benign likely sprain, strain. Unlikely fracture, dislocation, no signs of brachial plexus injury, neurovascular compromise or threat to [place]. No signs of traumatic injury to head, neck, chest, abdomen or pelvis. Plan imaging. Differential Diagnosis Differential Diagnoses: The differential diagnosis associated with the presentation includes likely sprain, strain. Unlikely fracture, dislocation, no signs of brachial plexus injury, neurovascular compromise or threat to [place]. No signs of traumatic injury to head, neck, chest, abdomen or pelvis. Admission/Observation Consideration of admission/observation: Escalation of care including admission/observation considered Unlikely Independent Interpretation I performed an independent interpretation of an: Plain X-Ray (XR/XR shoulder RT min 2V IMPRESSION: Mild degenerative changes. No acute fracture or dislocation. ) Radiology Impression Discussion of test interpretation with radiology: I have reviewed the radiologist's reading. Prescription Management I considered prescription management with: Pain Medication Discharge Plan Discharge Clinical Impression: Acute pain of right shoulder Patient Disposition: Home, Self-Care Instructions: Shoulder Pain (ED) Additional Instructions: Take your medications as prescribed. If you were prescribed antibiotics today, it is important that you take your medication to their entirety, do not skip any doses, do not finish them early. Follow-up with your primary care provider this week. Return to the emergency department with new or worsening symptoms. Such as fevers, chills, chest pain, shortness of breath, nausea, vomiting, dizziness, headache, vision changes, lethargy In case of emergency call 911 XR/XR shoulder RT min 2V IMPRESSION: Mild degenerative changes. No acute fracture or dislocation. Prescriptions: New acetaminophen [Tylenol] 325 mg capsule 650 mg PO Q6H PRN (Reason: pain) Qty: 20 0RF lidocaine [Lidoderm] 5 % adhesive patch,medicated 2 patch topical DAILY Qty: 15 0RF Rx Instructions: leave on most painful area for up to 12 hrs No Action (DME) anai [facility] See Rx Instructions .ROUTE .MEDSUPPLY Qty: 1 0RF Rx Instructions: Folding front wheeled walker tamsulosin 0.4 mg capsule 0.8 mg PO DAILY 90 Days Qty: 180 2RF lithium carbonate 300 mg capsule See Rx Instructions PO .COMPLEX 90 Days Qty: 270 1RF Rx Instructions: 2 caps in am and 1 cap noon orally; vitamin B complex [B Complex] Capsule 1 cap PO DAILY arginine (L-arginine) 500 mg capsule PO echinacea 380 mg capsule 380 mg PO DAILY Rx Instructions: administer with meals gingko 1 cap PO .QD fish,flaxseed oil-e.prim-bcurr 400-400-200 mg capsule PO magnesium oxide,aspartate,citr 400 mg magnesium capsule PO finasteride 5 mg tablet 5 mg PO DAILY bethanechol chloride 50 mg tablet 50 mg PO BID 30 Days Qty: 60 1RF Referrals: [facility] [Provider Group] - 2 days Po,Tavares Wood MD [Primary Care Provider] - 2 days Stand Alone Forms: Work/School Release
[2023-03-07] MEDS: Acetaminophen 325 MG TABLET 650 MG PO (17:39)
[2023-03-07] MEDS: Lidocaine 4 % Patch ADH..PATCH 1 PATCH TRANSDERMA (17:40)
--- NOTE | 2023-03-07 17:51 | PC.NURSE ---
Patient presents for pain in his right shoulder. Patient is able to move arm without difficulty.
== END 2023-03-07 17:56 | disposition home or self-care (01) ==
PROVIDERS: Emergency Provider Emergency Medicine Emergency Medical Services; PCP Internal Medicine
DX: M25.511 Pain in right shoulder (principal); Z91.81 History of falling; N40.0 Benign prostatic hyperplasia without lower urinary tract symptoms; D64.9 Anemia, unspecified
CPT/HCPCS: 73030; 99284

== ENCOUNTER 2023-03-09 10:16 | Outpatient (AMB) | payer MEDICARE, OTHER, SELFPAY ==
--- NOTE | 2023-03-09 10:45 | MHC.OFFWIV ---
Intake Vital Signs 03/09/23 10:57 Height 5 ft 10 in Weight 175 lb BMI 25.1 BP 128/52 L Blood Pressure Location Lt brachial Position Sitting Pulse 52 Pulse Source Pulse Oximeter Temp 98.9 F Temp Source Oral Pulse Oximetry (%) 97 Oxygen Delivery Method Room Air Intake Visit Reasons: EST/ pain in groin area Intake Note: Patient is here today for pain in groin area, Rt side is more painful pt states. Patient Tobacco Use Status: Former Tobacco user Quit Date: 2003 Allergies erythromycin base [ERYTHROMYCIN BASE] Adverse Reaction (Mild, Verified 03/09/23 11:34) N/V Medication List - Last Reconciled 03/09/23 by Juanpablo Perrin MD acetaminophen (Tylenol) 650 mg (2 x 325 mg) PO Q6H PRN arginine (L-arginine) mg PO bethanechol chloride 50 mg PO BID 30 days echinacea 380 mg PO DAILY finasteride 5 mg PO DAILY fish,flaxseed oil-e.prim-bcurr 400-400-200 mg caps PO [gingko 1 cap PO .QD] lidocaine 5% (Lidoderm) 2 patches topical DAILY lithium carbonate 2 caps in am and 1 cap noon orally; 90 days magnesium oxide,aspartate,citr mg PO tamsulosin 0.8 mg (2 x 0.4 mg) PO DAILY 90 days vitamin B complex 1 cap PO DAILY walker Folding front wheeled walker HPI EST/ pain in groin area HPI Details 67-year-old male presents to the office for a sick visit. Patient is complaining of a sharp pain in the scrotum since yesterday. He had pain all day and has been gradually worsening. Patient gives history of prostate enlargement and is scheduled for an ablation procedure. He has a catheter in place. No fevers. [facility] Medical History Urinary incontinence Arthritis of left knee Pre-operative clearance Osteoarthritis of right knee Impacted cerumen of right ear TSH elevation Right knee pain Primary osteoarthritis of right knee Bradycardia Onychomycosis High thyroid stimulating hormone (TSH) level Pituitary adenoma Umbilical hernia Ascending aorta dilatation Erectile dysfunction Osteoarthritis of knees, bilateral BPH (benign prostatic hyperplasia) Bipolar 1 disorder Shoulder pain Surgical History H/O colonoscopy Supraumbilical hernia History of surgery Skin cancer of face History of tonsillectomy Family History Father CVD (cardiovascular disease) Mental health disorder Mother Medical history unknown Maternal Aunt Non-Hodgkin lymphoma Paternal Uncle Myocardial infarction Social History Housing: House Are you a primary respiratory care faculty to a significant other at home: No Do you presently have visiting nurse or other home services: No Alcohol intake: never Patient Tobacco Use Status: Former Tobacco user Quit Date: 2003 Tobacco use type: Cigarette Years Smoked: December 2003 e-Cigarette/Vaping Use: Never Used Second Hand Smoke Exposure: No service: No Current occupational status: employed 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 Large firm, tender right testicle. Left testicle is small. Catheter in place. Assessment & Plan Assessment & Plan (1) Enlarged testicle: Code(s): N50.89 - Other specified disorders of the male genital organs Plan: Patient will need a stat ultrasound and based on it, further treatment plan. He has been referred to the emergency room at [facility]. The triage nurse was notified. Coding Level of Care Code Est Pt Level 4 (90891) Diagnoses Enlarged testicle N50.89
[2023-03-09 10:57] VITALS: BP 128/52; PULSE 52; TEMP 37.2; O2SAT 97; BMI 25.1
== END 2023-03-09 11:55 | disposition home or self-care (01) ==
PROVIDERS: PCP Internal Medicine; Visit Provider Internal Medicine
DX: N50.89 Other specified disorders of the male genital organs (principal)
CPT/HCPCS: 99214

== ENCOUNTER 2023-03-09 12:23 | Emergency (ER) | payer MEDICARE, SELFPAY ==
--- NOTE | ~2023-03-09 | US_ITS ---
EXAMINATION: US SCROTUM CLINICAL INFORMATION: Scrotal swelling. COMPARISON: None available. TECHNIQUE: A sonogram of the scrotum was performed assessing tovar-scale appearance and color Doppler flow. Spectral Doppler analysis of the arterial and venous flow were performed in the testes bilaterally. FINDINGS: RIGHT: Right testicle measures 3.95 x 3.1 x 3.75 cm, volume 24.9 mL. No focal testicular parenchymal lesions are visualized. Spectral Doppler analysis of the arterial and venous flow is increased in the right testis. Right epididymal head is normal in size. There are multiple anechoic cysts in the head of the epididymis. The largest measuring 0.35 x 0.40 x 0.38). There is moderate right hydrocele with septations. No varicocele is seen. Right epididymal Doppler flow is normal. LEFT: Left testicle measures 3.69 x 1.99 x 3.18) cm, volume 12.2 mL. No focal testicular parenchymal lesions are visualized. Spectral Doppler analysis of the arterial and venous flow is normal in the left testis. Left epididymal head is normal in size. There is moderate hydrocele with septation. No left varicocele is seen. Left epididymal Doppler flow is normal. US/US scrotum doppler IMPRESSION: 1. Bilateral hydroceles with septations. Right hydrocele is slightly larger. 2. Multiple right epididymal cysts. 3. The testes are unremarkable
--- NOTE | ~2023-03-09 | US_ITS ---
EXAMINATION: US SCROTUM CLINICAL INFORMATION: Scrotal swelling. COMPARISON: None available. TECHNIQUE: A sonogram of the scrotum was performed assessing tovar-scale appearance and color Doppler flow. Spectral Doppler analysis of the arterial and venous flow were performed in the testes bilaterally. FINDINGS: RIGHT: Right testicle measures 3.95 x 3.1 x 3.75 cm, volume 24.9 mL. No focal testicular parenchymal lesions are visualized. Spectral Doppler analysis of the arterial and venous flow is increased in the right testis. Right epididymal head is normal in size. There are multiple anechoic cysts in the head of the epididymis. The largest measuring 0.35 x 0.40 x 0.38). There is moderate right hydrocele with septations. No varicocele is seen. Right epididymal Doppler flow is normal. LEFT: Left testicle measures 3.69 x 1.99 x 3.18) cm, volume 12.2 mL. No focal testicular parenchymal lesions are visualized. Spectral Doppler analysis of the arterial and venous flow is normal in the left testis. Left epididymal head is normal in size. There is moderate hydrocele with septation. No left varicocele is seen. Left epididymal Doppler flow is normal. US/US scrotum IMPRESSION: 1. Bilateral hydroceles with septations. Right hydrocele is slightly larger. 2. Multiple right epididymal cysts. 3. The testes are unremarkable
[2023-03-09 12:46] VITALS: BP 147/126; PULSE 67; RESP 20; TEMP 37.6; O2SAT 96; BMI 25.1
--- NOTE | 2023-03-09 12:49 | ED.MALEGU ---
HPI - Male Genitourinary General Chief complaint: Urogenital-Male Stated complaint: Needs scrotum ultrasound Time Seen by Provider: 03/09/23 14:05 Source: patient and RN notes reviewed Mode of arrival: ambulatory Limitations: no limitations History of Present Illness HPI Narrative: This is a 67-year-old male, with a past medical history of ascending AA ordered dilatation, bipolar 1 disorder, BPH, erectile dysfunction, pituitary adenoma, urinary incontinence with neurogenic bladder, who presents to the emergency department with complaints of acute testicular pain and swelling since last night. Patient states that he noticed last night severe right-sided testicular pain and swelling which lasted 3-4 hours last night. He states that the pain is still present however not as severe as it was yesterday. He denies history of similar symptoms in the past. He is unable to discern whether not he has pain with urination given permanent placement of Castellano catheter. He has this changed every 4 weeks. He denies any fevers, chills, chest pain, shortness breath, abdominal pain, nausea, vomiting or diarrhea. He is not sexually active. Denies any other complaints or concerns at this time. MD Complaint: testicle pain and testicle swelling Duration: improved Location: right testicle Quality: aching Relieving factors: none Exacerbating factors: none Associated symptoms: Reports denies other symptoms Related Data Sexually active: No Home Medications Medication Instructions Recorded Confirmed vitamin B complex 1 cap PO DAILY 12/19/21 08/28/22 arginine (L-arginine) 500 mg mg PO 05/12/22 08/28/22 capsule echinacea 380 mg capsule 380 mg PO DAILY 05/12/22 08/28/22 fish oil 400 mg-flaxseed 400 cap PO 05/12/22 08/28/22 mg-prim,blk accounts receivable administrator,borag oils 200 mg capsule gingko 1 cap PO .QD 05/12/22 08/28/22 magnesium oxide,aspartate,citr mg PO 05/12/22 08/28/22 finasteride 5 mg tablet 5 mg PO DAILY 11/10/22 Previous Rx's Medication Instructions Recorded walker #1 ea 12/19/21 tamsulosin 0.4 mg capsule 0.8 mg (2 x 0.4 mg) PO DAILY 90 05/04/22 days #180 caps bethanechol chloride 50 mg tablet 50 mg PO BID 30 days #60 tabs 08/28/22 lithium carbonate 300 mg capsule See Rx Instructions PO .COMPLEX 90 02/16/23 days #270 caps acetaminophen 325 mg capsule 650 mg (2 x 325 mg) PO Q6H PRN 03/07/23 (Tylenol) pain #20 caps lidocaine 5 % topical patch 2 patch topical DAILY #15 ea 03/07/23 (Lidoderm) levofloxacin 500 mg tablet 500 mg PO DAILY 10 days #10 tabs 03/09/23 Allergies Allergy/AdvReac Type Severity Reaction Status Date / Time erythromycin base AdvReac Mild N/V Verified 03/09/23 12:51 [ERYTHROMYCIN BASE] Review of Systems Review of Systems: Yes all other systems are reviewed and are negative Constitutional: Constitutional: Reports as per [facility] Past Medical History Attestation statement: The following information was validated with the patient. Medical History Urinary incontinence Arthritis of left knee Pre-operative clearance Osteoarthritis of right knee Impacted cerumen of right ear TSH elevation Right knee pain Primary osteoarthritis of right knee Bradycardia Onychomycosis High thyroid stimulating hormone (TSH) level Pituitary adenoma Umbilical hernia Ascending aorta dilatation Erectile dysfunction Osteoarthritis of knees, bilateral BPH (benign prostatic hyperplasia) Bipolar 1 disorder Shoulder pain Surgical History H/O colonoscopy Supraumbilical hernia History of surgery Skin cancer of face History of tonsillectomy Family History Family History Father CVD (cardiovascular disease) Mental health disorder Mother Medical history unknown Maternal Aunt Non-Hodgkin lymphoma Paternal Uncle Myocardial infarction Social History Social History Housing: House Are you a primary child care centre director to a significant other at home: No Do you presently have visiting nurse or other home services: No Alcohol intake: never Patient Tobacco Use Status: Former Tobacco user Quit Date: 2003 Tobacco use type: Cigarette Years Smoked: December 2003 Smoked in Last 30 Days: No e-Cigarette/Vaping Use: Never Used Second Hand Smoke Exposure: No Use of substances other than those prescribed or required for medical reasons: No Advance Directives: No Advance Directives Information Provided: Yes service: No Current occupational status: employed 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 Current occupational exposures/hazards: No Cognitive needs: Yes Hearing needs: No Vision needs: Yes Physical Exam Vital Signs: Vital Signs: Last Vital Signs Temp 99.6 F 03/09/23 12:46 Pulse 67 03/09/23 12:46 Resp 20 03/09/23 12:46 BP 147/126 H 03/09/23 12:46 Pulse Ox 96 03/09/23 12:46 O2 Del Method Room Air 03/09/23 12:46 BMI result Body Mass Index 25.1 Const: General: cooperative, comfortable and no acute distress Orientation/consciousness: patient oriented x3 Limitations: no limitations HEENT: Head: Yes normal to inspection, Yes normocephalic and Yes atraumatic Ears: hearing grossly normal bilaterally General nose exam: Normal external nose present Face and sinus: Yes normal facial exam Mouth: Normal oral and palatal mucosa present, oropharynx normal and moist mucous membranes Throat: Yes posterior oropharynx normal Eyes: General: appearance normal, both eyes and all related structures Eyelids: Yes eyelids normal Conjunctivae: conjunctivae normal Sclerae: sclerae normal Pupils: Equal, round and reactive pupils present EOM: EOMs intact bilaterally Neck: Neck: Yes normal visual inspection, Yes full ROM and Yes no lymphadenopathy Lymphatic: no lymphadenopathy noted Chest: Chest palpation & inspection: normal inspection of the chest Resp: Effort & Inspection: normal respiratory effort and able to speak in complete sentences Auscultation: clear to auscultation bilaterally, no crackles, no rales, no rhonchi and no wheezes Cardio: Rate: regular rate Rhythm: regular rhythm Heart sounds: S1 normal heart sound present and S2 normal heart sound present GI: Inspection: Yes normal to inspection : Other: examination performed with can sorter present at all times. Scrotal edema noted. Scrotum appears erythematous with no profound warmth. No drainage. Skin: General skin exam: no rashes or lesions noted Trauma: no lacerations or abrasions Wounds: no wounds Neuro: General: patient oriented x3 and moves all extremities Cranial nerves: Yes Equal, round and reactive pupils present Extrem: General: Yes normal to inspection Right upper extremity: normal to inspection Left upper extremity: normal to inspection Right lower extremity: normal to inspection Left lower extremity: normal to inspection Course Course Course Narrative: RME - 67 yo male with history of bipolar disorder, BPH w/ urinary retention and chronic Castellano presents to the ER for evaluation of acute onset of right scrotal pain that started yesterday when walking out of [facility]. Urgent care sent him in for evaluation of a mass of the right scrotum noted by Dr. Carreno at [facility]. Plan: scrotal U/S w/ doppler Medications Administered Discontinued Medications Generic Name Dose Route Start Last Admin Trade Name Danielq PRN Reason Stop Dose Admin Ceftriaxone Sodium 500 mg/ 0 mg 03/09/23 16:06 03/09/23 16:20 Lidocaine HCl 1 ml IM 03/09/23 16:07 1 kit ONCE ONE Administration Medical Decision Making Medical Decision Making MDM Narrative: 67 y/o M presenting to the ER for evaluation of scrotal swelling. On arrival, vss, pt afebrile. Examinationwith Scrotal edema noted. Scrotum appears erythematous with no profound warmth. DDX including hydrocele, testicular torsion, orchitis, epididymitis. US was obtained revealing Bilateral hydroceles with septations. Right hydrocele is slightly larger, Multiple right epididymal cysts. Discussed case with Dr. Peter who advises to cover for orchitis given current physical examination findings/appearance. Discussed with pt who understands and agrees with plan. Stable for d.c. Differential Diagnosis Differential Diagnoses: The differential diagnosis associated with the presentation includes See above Admission/Observation Consideration of admission/observation: Escalation of care including admission/observation considered Radiology Impression Discussion of test interpretation with radiology: I have reviewed the radiologist's reading. Radiologist Impression: EXAMINATION: US SCROTUM CLINICAL INFORMATION: Scrotal swelling. COMPARISON: None available. TECHNIQUE: A sonogram of the scrotum was performed assessing tovar-scale appearance and color Doppler flow. Spectral Doppler analysis of the arterial and venous flow were performed in the testes bilaterally. FINDINGS: RIGHT: Right testicle measures 3.95 x 3.1 x 3.75 cm, volume 24.9 mL. No focal testicular parenchymal lesions are visualized. Spectral Doppler analysis of the arterial and venous flow is increased in the right testis. Right epididymal head is normal in size. There are multiple anechoic cysts in the head of the epididymis. The largest measuring 0.35 x 0.40 x 0.38). There is moderate right hydrocele with septations. No varicocele is seen. Right epididymal Doppler flow is normal. LEFT: Left testicle measures 3.69 x 1.99 x 3.18) cm, volume 12.2 mL. No focal testicular parenchymal lesions are visualized. Spectral Doppler analysis of the arterial and venous flow is normal in the left testis. Left epididymal head is normal in size. There is moderate hydrocele with septation. No left varicocele is seen. Left epididymal Doppler flow is normal. US/US scrotum IMPRESSION: 1. Bilateral hydroceles with septations. Right hydrocele is slightly larger. 2. Multiple right epididymal cysts. 3. The testes are unremarkable Dictated By: Jovany Celeste MD Discharge Plan Discharge Clinical Impression: Acute orchitis, Hydrocele, Epididymal cyst Patient Disposition: Home, Self-Care Instructions: Hydrocele (ED), Testicle Pain (ED), Orchitis (ED) Additional Instructions: Your ultrasound shows bilateral hydroceles, right epididymal cysts. Your exam is concerning for orchitis. This is an infection that requires antibiotics. You were given a dose of ceftriaxone which is a antibiotic. I am discharging on Levaquin which is an antibiotic. Please take as prescribed. Finish the entire course. Please follow-up with your urologist, call tomorrow to make an appointment. Watch for any new or worsening symptoms including but not limited to fevers, chills, worsening redness, swelling, or worsening pain. If any of these occur please return for re-evaluation. Prescriptions: New levofloxacin 500 mg tablet 500 mg PO DAILY 10 Days Qty: 10 0RF No Action (DME) [facility] [place] See Rx Instructions .ROUTE .MEDSUPPLY Qty: 1 0RF Rx Instructions: Folding front wheeled walker tamsulosin 0.4 mg capsule 0.8 mg PO DAILY 90 Days Qty: 180 2RF lithium carbonate 300 mg capsule See Rx Instructions PO .COMPLEX 90 Days Qty: 270 1RF Rx Instructions: 2 caps in am and 1 cap noon orally; vitamin B complex [B Complex] Capsule 1 cap PO DAILY acetaminophen [Tylenol] 325 mg capsule 650 mg PO Q6H PRN (Reason: pain) Qty: 20 0RF lidocaine [Lidoderm] 5 % adhesive patch,medicated 2 patch topical DAILY Qty: 15 0RF Rx Instructions: leave on most painful area for up to 12 hrs arginine (L-arginine) 500 mg capsule PO echinacea 380 mg capsule 380 mg PO DAILY Rx Instructions: administer with meals gingko 1 cap PO .QD fish,flaxseed oil-e.prim-bcurr 400-400-200 mg capsule PO magnesium oxide,aspartate,citr 400 mg magnesium capsule PO finasteride 5 mg tablet 5 mg PO DAILY bethanechol chloride 50 mg tablet 50 mg PO BID 30 Days Qty: 60 1RF Stand Alone Forms: Work/School Release Interventions: ED Discharge Assessment Last Done: 03/09/23 16:27 Discharge Date/Time: 03/09/23 16:28
[2023-03-09] MEDS: cefTRIAXone sodium 500 MG, Lidocaine HCl 1 % MPF 1 ML IM (16:20)
== END 2023-03-09 16:28 | disposition home or self-care (01) ==
PROVIDERS: Emergency Provider Emergency Medicine; PCP Internal Medicine
DX: N45.2 Orchitis (principal); N43.3 Hydrocele, unspecified; N45.1 Epididymitis; R10.2 Pelvic and perineal pain
CPT/HCPCS: 76870; 93975; 96372; 99284; J0696

== ENCOUNTER 2023-05-21 15:06 | Outpatient (AMB) | payer MEDICARE, SELFPAY ==
[2023-05-21 15:13] VITALS: BP 136/88; PULSE 47; O2SAT 98; BMI 25.3
--- NOTE | 2023-05-21 15:13 | A.OFFPC_ITS ---
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: No Accompanied by: Self / Same As Patient Allergies erythromycin base [ERYTHROMYCIN BASE] Adverse Reaction (Mild, Verified 05/21/23 15:14) N/V Medication List - Last Reconciled 05/21/23 by Tavares Mcgee MD acetaminophen (Tylenol) 650 mg (2 x 325 mg) PO Q6H PRN arginine (L-arginine) mg PO echinacea 380 mg PO DAILY finasteride 5 mg PO DAILY fish,flaxseed oil-e.prim-bcurr 400-400-200 mg caps PO lidocaine 5% (Lidoderm) 2 patches topical DAILY lithium carbonate 2 caps in am and 1 cap noon orally; 90 days multivitamin 1 tab PO DAILY tamsulosin 0.8 mg (2 x 0.4 mg) PO DAILY 90 days vitamin B complex 1 cap PO DAILY walker Folding front wheeled walker Tobacco use date assessed: 11/10/22 Fall risk assessment: No Falls in past year Last assessed Fall Risk: 05/21/23 Dental Screening Dental Screen Date: 05/21/23 Did you have a dental visit in the last 12 months?: No Did you have a dental problem in the last 6 months where you did not have access to dental care?: No Was dental information given to patient?: Patient has dentist HPI physical HPI Details 67-year-old male with history of BPH bip olar disorder neurogenic bladder coming in for follow-up. Last seen in October 2022. Patient's colonoscopy is up-to-date Seeing Dr. Delacruz for the BPH having urinary retention February 2023 was given antibiotic had a swollen testis. on Flomax and has been advised self catheterization. Has indwelling catheterization plannedAqua ablation. Patient was also seen in the ER for the right shoulder. Patient is here for physical [facility] Medical History Urinary incontinence Arthritis of left knee Pre-operative clearance Osteoarthritis of right knee Impacted cerumen of right ear TSH elevation Right knee pain Primary osteoarthritis of right knee Bradycardia Onychomycosis High thyroid stimulating hormone (TSH) level Pituitary adenoma Umbilical hernia Ascending aorta dilatation Erectile dysfunction Osteoarthritis of knees, bilateral BPH (benign prostatic hyperplasia) Bipolar 1 disorder Shoulder pain Surgical History H/O colonoscopy Supraumbilical hernia History of surgery Skin cancer of face History of tonsillectomy Family History Father CVD (cardiovascular disease) Mental health disorder Mother Medical history unknown Maternal Aunt Non-Hodgkin lymphoma Paternal Uncle Myocardial infarction Social History (Updated 05/21/23 @ 15:36 by Tavares Mcgee MD) Housing: House Are you a primary health care manager to a significant other at home: No Do you presently have visiting nurse or other home services: No Alcohol intake: never Comment: 3 beers a month Patient Tobacco Use Status: Former Tobacco user Quit Date: 2003 Tobacco use type: Cigarette Years Smoked: December 2003 e-Cigarette/Vaping Use: Never Used Second Hand Smoke Exposure: No service: No Current occupational status: employed 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 Aung Stacy, Belen Paulino, Lul Galloway and colleagues, with an educational james from [employer]. Review of Systems Const Denies poor appetite and Denies weakness Eyes Denies no additional complaints ENT Reports Normal hearing present, Denies dizziness, Denies nasal congestion, Denies tinnitus and Denies sore throat Card Denies chest pain, Denies syncope, Denies rapid heart rate and Denies dyspnea Resp Denies cough and Denies dyspnea GI Denies change in stool character, Reports constipation, Denies diarrhea, Denies nausea and Denies vomiting Denies dysuria and Denies urinary frequency Neuro Reports Normal hearing present, Denies confusion, Denies dizziness, Denies syncope and Denies weakness Psych Denies confusion Physical exam (Primary Care) Vital Signs: Last Vital Signs Pulse 47 L 05/21/23 15:13 BP 136/88 05/21/23 15:13 Pulse Ox 98 05/21/23 15:13 Oxygen Delivery Method Room Air 05/21/23 15:13 BMI result Body Mass Index 25.3 Tobacco/Smoking Status: Tobacco use Status Tobacco use date assessed 11/10/22 05/21/23 15:15 Patient Tobacco Use Status Former Tobacco user 05/21/23 15:36 Tobacco use type Cigarette 05/21/23 15:36 e-Cigarette/Vaping Use Never Used 05/21/23 15:36 Thrive Assessment: Date of Thrive Assessment Date Thrive assessed 08/07/22 05/21/23 15:15 Const General: No confusion Orientation/consciousness: No confusion HENMT Head: Yes normocephalic Ears: external ears normal and TM's normal bilaterally Face and sinus: Yes normal facial exam Mouth: moist mucous membranes Throat: Yes tonsils normal Eyes Conjunctivae: conjunctivae normal Pupils: Equal, round and reactive pupils present and Pupil accommodation reflex normal Direct Ophthalmoscopy: normal light reflex Neck Neck: No lymphadenopathy Thyroid: Thyroid normal Chest Chest palpation & inspection: normal inspection of the chest Resp Effort & Inspection: normal respiratory effort and no audible wheezes Auscultation: clear to auscultation bilaterally, no crackles, no wheezes and lung sounds not diminished Cardio Rate: regular rate Rhythm: regular rhythm Peripheral pulses: radial pulses present and dorsalis pedis present GI Other: guaiac negative prostate N Palpation (GI): no masses Auscultation: normal bowel sounds and normoactive bowel sounds Other: has the cath bag Male General Exam: Yes normal external exam Skin General skin exam: no rashes or lesions noted Rashes: no rashes Neuro General: No confusion Cranial nerves: Yes Equal, round and reactive pupils present and Yes Normal hearing present Cognition (Neuro): normal cognition Gait exam (Neuro): Normal gait present Motor exam (neuro): 5/5 motor strength present throughout Deep tendon reflexes (DTR's): Right brachioradialis reflex intensity grade: 2+, Left brachioradialis reflex intensity grade: 2+, Right patellar reflex intensity grade: 2+ and Left patellar reflex intensity grade: 2+ Extrem General: No edema Office Procedures Flu Questionnaire Does the patient have a severe egg allergy?: No Does the patient have severe life threatening allergies?: No Does the patient have a fever or illness today?: No Has the patient ever had Guillain-[place] Syndrome?: No Has the patient ever had any past reaction to a flu shot?: No Immunizations flu vacc [id number] 6mos up(PF) 60 mcg(15 mcgx4)/0.5 mL IM syringe Performing Provider: Tavares Mcgee MD [facility] Administered by: ABBY Erwin on 05/21/23 16:13 Dose Route Admin Location Dispensed Lot Number Expiration Date NDC Can Filler 0.5 mL IM Left Deltoid 0.5 mL [id number] 12/20/23 60341-742-31 [employer] VIS Given Date VIS Provided VIS Publication Date 05/21/23 Single Vaccine 21 Eligibility Eligibility Date Funding Source Not [facility] Eligible 05/21/23 Private Assessment and Plan Assessment & Plan (1) Annual physical exam: Code(s): Z00.00 - Encounter for general adult medical examination without abnormal findings (2) Chronic anemia: Code(s): D64.9 - Anemia, unspecified Plan: Continue to monitor (3) Bipolar 1 disorder: Comment: Declined therapy February 2020 Code(s): F31.9 - Bipolar disorder, unspecified Plan: Continue with present management/therapy (4) Neurogenic bladder: Code(s): N31.9 - Neuromuscular dysfunction of bladder, unspecified Plan: Patient follows up with urology on tamsulosin and finasteride and has the catheter in place right now. (5) Hearing difficulty of both ears: Code(s): H91.93 - Unspecified hearing loss, bilateral (6) Osteoarthritis, knee: Code(s): M17.9 - Osteoarthritis of knee, unspecified Plan: patient sees ortho Orders: Orders 2 Complete Blood Count Auto Diff Today N40.1 - Benign prostatic hyperplasia with lower urinary tract symptoms, R35.0 - Frequency of micturition Free T4 (Free Thyroxine) Today N40.1 - Benign prostatic hyperplasia with lower urinary tract symptoms, R35.0 - Frequency of micturition Reticulocyte Count Today N40.1 - Benign prostatic hyperplasia with lower urinary tract symptoms, R35.0 - Frequency of micturition Thyroid Stimulating Hormone Today N40.1 - Benign prostatic hyperplasia with lower urinary tract symptoms, R35.0 - Frequency of micturition Lipid Panel Today E78.00 - Pure hypercholesterolemia, unspecified, N40.1 - Benign prostatic hyperplasia with lower urinary tract symptoms, R35.0 - Frequency of micturition Comprehensive Met. Panel Today N40.1 - Benign prostatic hyperplasia with lower urinary tract symptoms, R35.0 - Frequency of micturition Ferritin Today N40.1 - Benign prostatic hyperplasia with lower urinary tract symptoms, R35.0 - Frequency of micturition IRON PROFILE Today N40.1 - Benign prostatic hyperplasia with lower urinary tract symptoms, R35.0 - Frequency of micturition Prostate Specific Antigen Scr Today N40.1 - Benign prostatic hyperplasia with lower urinary tract symptoms, R35.0 - Frequency of micturition Influenza [id number] Immunization Today Z23 - Encounter for immunization Referrals Speech and Hearing Referral H91.93 - Unspecified hearing loss, bilateral Coding Level of Care Code Est Pt Prev Care >65y(94833) Diagnoses Annual physical exam Z00.00 Chronic anemia D64.9 Bipolar 1 disorder F31.9 Neurogenic bladder N31.9 Hearing difficulty of both ears H91.93 Osteoarthritis, knee M17.9
== END 2023-05-21 16:15 | disposition home or self-care (01) ==
PROVIDERS: Visit Provider Internal Medicine
DX: Z00.00 Encounter for general adult medical examination without abnormal findings (principal); D64.9 Anemia, unspecified; F31.9 Bipolar disorder, unspecified; Z23 Encounter for immunization; N31.9 Neuromuscular dysfunction of bladder, unspecified; H91.93 Unspecified hearing loss, bilateral; M17.9 Osteoarthritis of knee, unspecified
CPT/HCPCS: 90471; 90686; 99213; 99397

== ENCOUNTER 2023-08-21 15:00 | Outpatient (REF) | payer MEDICARE, SELFPAY ==
[2023-08-21 15:31] LABS: MANUAL DIFF FLAG NO
[2023-08-21 15:52] LABS: Basophils Absolute Auto 0.1 X10*3/uL (0.0-0.2); Basophils Percent Auto 0.9 % (0-2); Eosinophils Absolute Auto 0.3 X10*3/uL (0.0-0.4); Eosinophils Percent Auto 3.2 % (0-4); Hematocrit 42.9 % (42.0-52.0); Hemoglobin 13.7 g/dl (14.0-18.0); Imm Gran Abs Auto 0.04 X10*3/uL (0.00-0.03); Imm Gran Pct Auto 0.4 % (0.0-0.4); Immature Retic Fraction 8.9 % (2.3-13.4); Lymphocytes Absolute Auto 2.2 X10*3/uL (1.2-4.9); Lymphocytes Percent Auto 22.9 % (20-40); Mean Corpuscular HGB Conc 31.9 g/dl (31.0-36.0); Mean Corpuscular Hemoglobin 29.1 pg (27.0-33.0); Mean Corpuscular Volume 91.1 fL (80.0-98.0); Mean Platelet Volume 11.5 fL (9.4-12.4); Monocytes Absolute Auto 0.7 X10*3/uL (0.1-1.2); Monocytes Percent Auto 7.7 % (2-11); Neutrophils Absolute Auto 6.2 x10*3/uL (2.0-8.3); Neutrophils Percent Auto 64.9 % (45-73); Platelet Count 198 X10*3/uL (160-400); Red Blood Count 4.71 X10*6/uL (4.60-5.80); Red Cell Distribution Width 13.4 % (11.0-16.0); Retic HGB Equivalent 31.7 pg (30.0-35.0); Reticulocytes Absolute 0.093 X10*6/uL (0.026-0.095); White Blood Count 9.6 X10*3/uL (4.8-10.8)
[2023-08-21 16:12] LABS: Alanine Aminotransferase 26 U/L (0-40); Albumin Level 4.2 g/dL (3.5-5.0); Alkaline Phosphatase 45 U/L (39-117); Anion Gap 9 (12-20); Aspartate Amino Transferase 21 U/L (5-37); Bilirubin Total 0.8 mg/dL (0.0-1.0); Blood Urea Nitrogen 18 mg/dL (9-16); Calcium 9.7 mg/dL (8.4-10.2); Carbon Dioxide 29 mmol/L (22-29); Chloride 108 mmol/L (96-108); Cholesterol 196 mg/dL (<200); Estimated Glomerular Filt Rate > 60; Glucose Random 98 mg/dL (60-115); HDL Cholesterol 55 mg/dL (>40); Iron 91 mcg/dL (45-160); LDL Cholesterol Calculated 128 mg/dL (<100); Percent Iron Saturation 35 % (15-50); Potassium 4.4 mmol/L (3.3-5.1); Sodium 142 mmol/L (135-145); Total Iron Binding Capacity 261 mcg/dL (228-428); Total Protein 6.8 g/dL (6.5-8.0); Triglycerides 66 mg/dL (<150); Unsaturated Iron Binding 170 ug/dL
[2023-08-21 16:23] LABS: Prostate Specific Antigen Scr 1.34 ng/mL (<0.05-4.0)
[2023-08-21 16:28] LABS: Ferritin 183 ng/mL (20-250); Free T4 (Free Thyroxine) 0.91 ng/dL (0.71-1.85); Thyroid Stimulating Hormone 2.15 uIU/mL (0.32-4.0)
== END 2023-08-21 15:01 | disposition home or self-care (01) ==
LOC: HO.LAB 15:00
PROVIDERS: PCP Internal Medicine; Visit Provider Internal Medicine
DX: Z12.5 Encounter for screening for malignant neoplasm of prostate (principal); N40.1 Benign prostatic hyperplasia with lower urinary tract symptoms; R35.0 Frequency of micturition; E78.00 Pure hypercholesterolemia, unspecified
CPT/HCPCS: 36415; 80053; 80061; 82728; 83540; 84153; 84439; 84443; 85025; 85045

== ENCOUNTER 2023-08-24 14:51 | Outpatient (AMB) | payer MEDICARE, SELFPAY ==
--- NOTE | 2023-08-24 14:56 | MHC.PC.OV ---
Vital Signs 08/24/23 14:58 Height 5 ft 10 in Weight 176 lb BMI 25.3 BP 110/70 Blood Pressure Location Lt brachial Position Sitting Pulse 41 L Pulse Source Pulse Oximeter Pulse Oximetry (%) 96 Oxygen Delivery Method Room Air Intake Visit Reasons: BPH Intake Note: Patient is here to follow up on BPH. 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 Coordinator: Not Required per policy Accompanied by: Self / Same As Patient Allergies erythromycin base [ERYTHROMYCIN BASE] Adverse Reaction (Mild, Verified 08/24/23 14:57) N/V Tobacco use date assessed: 08/24/23 Fall risk assessment: No Falls in past year Last assessed Fall Risk: 08/24/23 Dental Screening Dental Screen Date: 08/24/23 Did you have a dental visit in the last 12 months?: Yes Did you have a dental problem in the last 6 months where you did not have access to dental care?: No Was dental information given to patient?: Patient has dentist HPI BPH HPI Details 67-year-old male with a history of bipolar disorder neurogenic bladder knee osteoarthritis chronic anemia coming in for follow-up. Last seen for physical exam in April 2023. Review of the notes patient had colonoscopy done in July [address] Mcwilliams noted 1 4 mm polyp in the proximal rectum. Urology surgery 01/2024 [facility] Medical History Urinary incontinence Arthritis of left knee Pre-operative clearance Osteoarthritis of right knee Impacted cerumen of right ear TSH elevation Right knee pain Primary osteoarthritis of right knee Bradycardia Onychomycosis High thyroid stimulating hormone (TSH) level Pituitary adenoma Umbilical hernia Ascending aorta dilatation Erectile dysfunction Osteoarthritis of knees, bilateral BPH (benign prostatic hyperplasia) Bipolar 1 disorder Shoulder pain Surgical History H/O colonoscopy Supraumbilical hernia History of surgery Skin cancer of face History of tonsillectomy Family History Father CVD (cardiovascular disease) Mental health disorder Mother Medical history unknown Maternal Aunt Non-Hodgkin lymphoma Paternal Uncle Myocardial infarction Social History (Updated 08/24/23 @ 15:05 by ABBY Lindsey) Housing: House Are you a primary urgent care technician to a significant other at home: No Do you presently have visiting nurse or other home services: No Alcohol intake: current Alcohol intake frequency: a few times a month Alcohol type: beer Comment: 3 beers a month Patient Tobacco Use Status: Former Tobacco user Quit Date: 2003 Tobacco use type: Cigarette Years Smoked: December 2003 e-Cigarette/Vaping Use: Never Used Second Hand Smoke Exposure: No service: No Current occupational status: employed 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 1. Little interest or pleasure in doing things: not at all 2. Feeling down, depressed, or hopeless: not at all 3. Trouble falling or staying asleep, or sleeping too much: not at all 4. Feeling tired or having little energy: not at all 5. Poor appetite or overeating: not at all 6. Feeling bad about yourself - or that you are a failure or have let yourself or your family down: not at all 7. Trouble concentrating on things, such as reading the newspaper or watching television: not at all 8. Moving or speaking so slowly that other people could have noticed. Or the opposite - being so fidgety or restless that you have been moving around a lot more than usual: not at all 9. Thoughts that you would be better off or of hurting yourself in some way: not at all Total score: 0 Depression Screening Interpretation: Negative Depression Screening Done: Yes Source: Developed by Drs. Aung Stacy, Belen Paulino, Lul Galloway and colleagues, with an educational james from [employer]. Thrive Questionnaire Date Thrive assessed: 08/24/23 I am a: Patient What is your living situation today?: I have a steady place to live Within the past 12 months, did the food you bought not last and you didn't have the money to get more?: Never true Within the past 12 months, did you worry whether your food would run out before you got money to buy more?: Never true Do you have trouble paying for medicines?: No Do you have trouble getting transportation to medical appointments?: No Do you have trouble paying your heating and electricity bill?: No Do you have trouble taking care of your child, family member or friend?: No Do you have trouble with day-to-day activities such as bathing, preparing meals, shopping, managing finances, etc.?: No Are you currently unemployed and looking for a job?: No Are you interested in more education?: No Currently or been in a relationship where the following occur: no concerns reported THRIVE Score: 0 AUDIT C Alcohol Use Questionnaire (AUDIT-C) 1. How often do you have a drink containing alcohol?: Monthly or less 2. How many drinks containing alcohol do you have on a typical day when you are drinking?: 1 or 2 Total Score: 1 FLAKITO-7 AMB Questionnaire FLAKITO-7 Date FLAKITO - 7 assessed: 08/24/23 Feeling nervous, anxious, or on edge: 0 = Not at all Not being able to stop or control worryin = Not at all Worrying too much about different things: 0 = Not at all Trouble relaxin = Not at all Being so restless that it is hard to sit still: 0 = Not at all Becoming easily annoyed or irritable: 0 = Not at all Feeling afraid as if something awful might happen: 0 = Not at all Total FLAKITO-7 score (0-4 normal; 5-9 mild; 10-14 moderate; 15-21 severe): 0 Source: Developed by Drs. Aung Stacy, Belen Paulino, Lul Galloway and colleagues, with an educational james from [employer]. Physical exam (Primary Care) Vital Signs: Last Vital Signs Pulse 41 L 08/24/23 14:58 BP 110/70 08/24/23 14:58 Pulse Ox 96 08/24/23 14:58 Oxygen Delivery Method Room Air 08/24/23 14:58 BMI result Body Mass Index 25.3 Tobacco/Smoking Status: Tobacco use Status Tobacco use date assessed 08/24/23 08/24/23 15:08 Patient Tobacco Use Status Former Tobacco user 08/24/23 15:08 Tobacco use type Cigarette 08/24/23 15:08 e-Cigarette/Vaping Use Never Used 08/24/23 15:08 PHQ-9: PHQ-9 Score PHQ-9: Total score 0 08/24/23 15:08 Depression Screening Interpretation: Negative Thrive Assessment: Date of Thrive Assessment Date Thrive assessed 08/24/23 08/24/23 15:08 Currently or been in a relationship where the following occur: no concerns reported Const General: alert; No acute distress Eyes Conjunctivae: conjunctivae normal Resp Auscultation: clear to auscultation bilaterally Cardio Rate: regular rate Rhythm: regular rhythm GI Inspection: Yes normal to inspection Extrem General: Yes normal to inspection and No edema Assessment and Plan Assessment & Plan (1) Chronic anemia: Code(s): D64.9 - Anemia, unspecified Plan: Continue to monitor and this has been improved. (2) Bipolar 1 disorder: Comment: Declined therapy February 2020 Code(s): F31.9 - Bipolar disorder, unspecified Plan: Continue with psychiatric management (3) Neurogenic bladder: Code(s): N31.9 - Neuromuscular dysfunction of bladder, unspecified Plan: Continue to follow-up with urology on tamsulosin. and finasteride Coding Level of Care Code Est Pt Level 4 (68857) Diagnoses Chronic anemia D64.9 Bipolar 1 disorder F31.9 Neurogenic bladder N31.9
[2023-08-24 14:58] VITALS: BP 110/70; PULSE 41; O2SAT 96; BMI 25.3
== END 2023-08-24 15:39 | disposition home or self-care (01) ==
PROVIDERS: PCP Internal Medicine; Visit Provider Internal Medicine
DX: D64.9 Anemia, unspecified (principal); F31.9 Bipolar disorder, unspecified; N31.9 Neuromuscular dysfunction of bladder, unspecified
CPT/HCPCS: 99214

== ENCOUNTER 2023-09-22 15:55 | Outpatient (REF) | payer MEDICARE, SELFPAY | END 2023-09-22 15:56 | disposition home or self-care (01) | LOC: HO.SH 15:55 | PROVIDERS: PCP Internal Medicine; Visit Provider Internal Medicine | DX: H90.3 Sensorineural hearing loss, bilateral (principal) | CPT/HCPCS: 92557; 92567 ==

== ENCOUNTER 2023-10-01 11:08 | Outpatient (AMB) | payer MEDICARE, SELFPAY ==
--- NOTE | 2023-10-01 11:24 | A.OFFVIS_ITS ---
Intake Vital Signs 10/01/23 11:36 Height 5 ft 10 in Weight 176 lb BMI 25.3 Intake Visit Reasons: Bilateral Knee Injections Intake Note: Dilan a 67 year old male presents today for a follow up of bilateral knee, last cortisone injection on 04/10/22. Patient is requesting bilateral cortisone injections today. Allergies erythromycin base [ERYTHROMYCIN BASE] Adverse Reaction (Mild, Verified 10/01/23 11:36) N/V HPI Bilateral Knee Injections HPI Details 67-year-old male who returns to [facility] for a follow-up of bilateral knee pain. He had his last injection on 04/10/22 which provided him relief. He tries to stay quite active and has an upcoming trip to [place] and is concerned about pain with traveling. [facility] Medical History Urinary incontinence Arthritis of left knee Pre-operative clearance Osteoarthritis of right knee Impacted cerumen of right ear TSH elevation Right knee pain Primary osteoarthritis of right knee Bradycardia Onychomycosis High thyroid stimulating hormone (TSH) level Pituitary adenoma Umbilical hernia Ascending aorta dilatation Erectile dysfunction Osteoarthritis of knees, bilateral BPH (benign prostatic hyperplasia) Bipolar 1 disorder Shoulder pain Surgical History H/O colonoscopy Supraumbilical hernia History of surgery Skin cancer of face History of tonsillectomy Family History Father CVD (cardiovascular disease) Mental health disorder Mother Medical history unknown Maternal Aunt Non-Hodgkin lymphoma Paternal Uncle Myocardial infarction Social History Housing: House Are you a primary respiratory care faculty to a significant other at home: No Do you presently have visiting nurse or other home services: No Alcohol intake: current Alcohol intake frequency: a few times a month Alcohol type: beer Comment: 3 beers a month Patient Tobacco Use Status: Former Tobacco user Quit Date: 2003 Tobacco use type: Cigarette Years Smoked: December 2003 e-Cigarette/Vaping Use: Never Used Second Hand Smoke Exposure: No service: No Current occupational status: employed 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 Current occupational exposures/hazards: No Cognitive needs: Yes (walker) Hearing needs: No Vision needs: Yes (glasses) Review of Systems Const All systems reviewed & are unremarkable except as noted in HPI and below Physical Exam Vital Signs: BMI result Body Mass Index 25.3 Const General: cooperative and no acute distress Orientation/consciousness: patient oriented x3 Resp Effort & Inspection: normal respiratory effort and able to speak in complete sentences Cardio Peripheral pulses: Peripheral pulses 2+ throughout Neuro General: patient oriented x3 Extrem Other: Bilateral knee: Skin intact, no erythema or joint effusion. Tenderness along the medial and lateral joint line. Full ROM with crepitus. Negative Tenisha?s. No ligamentous laxity. NVI. Office Procedures Joint Injection/Drain Joint Injection/Drain Primary Site: right knee Secondary Site: left knee Prep: site was prepped using aseptic technique, ethochloride spray was applied and injection warnings given Injected: 80 mg of, DepoMedrol, with 8 mL of, 1% plain lidocaine and in the joint Approach Used: anterolateral Procedure: The patient tolerated the procedure well and there was some relief with the local anesthesia Coding 27992 - Glenohumeral/Tronchanteric Bursa/Intraarticular Procedure code (CPT) selection complete Assessment & Plan Assessment & Plan (1) Osteoarthritis, knee: Code(s): M17.9 - Osteoarthritis of knee, unspecified Plan We discussed options today which include steroid injection. They did consent to move forward with the bilateral knee injection, which was tolerated well. I recommended rest, ice and elevation and OTC anti-inflammatories PRN for discomfort. If symptoms persist or worsens over the next 6-8 weeks, patient will contact the office, otherwise follow-up as needed. Patient Instructions: Scribed for Glory Milian PA-C, by Alexis Hinson medical laboratory technicians, on 10/01/2023 at 11:00 AM HEATHER. Glory Chen PA-C, have personally reviewed and agree with t he information entered by the scribe. Coding Level of Care Code Est Pt Level 3 (07169) Diagnoses Osteoarthritis, knee M17.9 CPT Codes Coding - Joint 7: 40203 - Glenohumeral/Tronchanteric Bursa/Intraarticular ([id number])
[2023-10-01 11:36] VITALS: BMI 25.3
== END 2023-10-01 11:52 | disposition home or self-care (01) ==
PROVIDERS: PCP Internal Medicine; Visit Provider Physician Assistant
DX: M17.9 Osteoarthritis of knee, unspecified (principal)
CPT/HCPCS: 20610

== ENCOUNTER → 2023-10-01 11:08 | Outpatient (BNVA) | payer MEDICARE, SELFPAY | PROVIDERS: PCP Internal Medicine; Visit Provider Physician Assistant | DX: M17.0 Bilateral primary osteoarthritis of knee (principal) | CPT/HCPCS: 20610; J1010; J1040 ==

== ENCOUNTER 2024-01-15 08:06 | Outpatient (AMB) | payer MEDICARE, SELFPAY ==
--- NOTE | 2024-01-15 08:11 | A.OFFPC_ITS ---
Vital Signs 01/15/24 08:22 Height 5 ft 10 in Weight 176 lb 0.6 oz BMI 25.3 BP 130/70 Blood Pressure Location Lt brachial Position Sitting Pulse 48 L Pulse Source Pulse Oximeter Pulse Oximetry (%) 98 Oxygen Delivery Method Room Air Intake Visit Reasons: Pre Op sx w/ Urologist 8.9 Media Relations Specialist Required: No Allergies erythromycin base [ERYTHROMYCIN BASE] Adverse Reaction (Mild, Verified 01/15/24 08:44) N/V Medication List - Last Reconciled 01/15/24 by Gretchen Giron PA-C acetaminophen (Tylenol) 650 mg (2 x 325 mg) PO Q6H PRN arginine (L-arginine) mg PO echinacea 380 mg PO DAILY finasteride 5 mg PO DAILY fish,flaxseed oil-e.prim-bcurr 400-400-200 mg caps PO lithium carbonate 2 caps in am and 2 caps noon orally; 90 days multivitamin 1 tab PO DAILY tamsulosin 0.8 mg (2 x 0.4 mg) PO DAILY 90 days vitamin B complex 1 cap PO DAILY walker Folding front wheeled walker Tobacco use date assessed: 08/24/23 Fall risk assessment: No Falls in past year Last assessed Fall Risk: 01/15/24 Dental Screening Dental Screen Date: 08/24/23 HPI Pre Op sx w/ Urologist 8.9 HPI Details 67-year-old male with a history of bipol ar disorder, neurogenic bladder, and chronic anemia last seen by Dr. Mcgee coming in for preop evaluation for Urology surgery.? In review of the does patient was seen by Orthopedics for knee osteoarthritis and given injection. Patient is undergoing resection of the prostate under general anesthesia on 01/29/2024 with [facility]. Patient has been under anesthesia previosuly for hernia repair with no complication. Patient has no relevant comorbidities. Blood pressure and heart rate are at baseline and within normal limits for this patient. No history of CVA, [place] or CHF. No history of HTN or DM. [facility] Medical History Urinary incontinence Arthritis of left knee Pre-operative clearance Osteoarthritis of right knee Impacted cerumen of right ear TSH elevation Right knee pain Primary osteoarthritis of right knee Bradycardia Onychomycosis High thyroid stimulating hormone (TSH) level Pituitary adenoma Umbilical hernia Ascending aorta dilatation Erectile dysfunction Osteoarthritis of knees, bilateral BPH (benign prostatic hyperplasia) Bipolar 1 disorder Shoulder pain Surgical History H/O colonoscopy Supraumbilical hernia History of surgery Skin cancer of face History of tonsillectomy Family History Father CVD (cardiovascular disease) Mental health disorder Mother Medical history unknown Maternal Aunt Non-Hodgkin lymphoma Paternal Uncle Myocardial infarction Social History Housing: House Are you a primary special needs child caregiver to a significant other at home: No Do you presently have visiting nurse or other home services: No Alcohol intake: current Alcohol intake frequency: a few times a month Alcohol type: beer Comment: 3 beers a month Patient Tobacco Use Status: Former Tobacco user Tobacco use type: Cigarette Years Smoked: December 2003 e-Cigarette/Vaping Use: Never Used Second Hand Smoke Exposure: No service: No Current occupational status: employed 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 How often do you have a drink containing alcohol?: Monthly or less 2. How many drinks containing alcohol do you have on a typical day when you are drinking?: 1 or 2 Total Score: 1 FLAKITO-7 AMB Questionnaire FLAKITO-7 Date FLAKITO - 7 assessed: 08/24/23 Source: Developed by Drs. Aung Stacy, Belen Paulino, Lul Galloway and colleagues, with an educational james from [employer]. Review of Systems Const Denies body aches, Denies fatigue, Denies fever(s), Denies frequent falls, Denies headache(s) and Denies weakness Eyes Reports no additional complaints and Denies change in vision ENT Denies dysphagia, Denies dizziness, Denies facial pain, Denies headache(s), Denies nasal congestion and Denies odynophagia Card Denies chest pain, Denies syncope, Denies leg edema, Denies lightheadedness and Denies dyspnea Resp Denies cough and Denies dyspnea GI Denies constipation, Denies dysphagia, Denies dyspepsia, Denies diarrhea, Denies nausea, Denies odynophagia and Denies vomiting Details: Catheter in place Denies dysuria, Reports urinary frequency, Denies urinary hesitancy and Reports urinary urgency Musc Details: Bilateral knee pain Denies back pain and Denies myalgias Skin/Breast Reports system reviewed and no additional complaints, except as documented Neuro Denies dizziness, Denies syncope, Denies frequent falls, Denies headache(s) and Denies weakness Psych Reports no additional complaints Endo Denies fatigue Physical exam (Primary Care) Tobacco/Smoking Status: Tobacco use Status Tobacco use date assessed 08/24/23 01/15/24 08:13 Patient Tobacco Use Status Former Tobacco user 01/15/24 08:13 Tobacco use type Cigarette 01/15/24 08:13 e-Cigarette/Vaping Use Never Used 01/15/24 08:13 Thrive Assessment: Date of Thrive Assessment Date Thrive assessed 08/24/23 01/15/24 08:13 Const General: cooperative, healthy appearing, comfortable and no acute distress Orientation/consciousness: patient oriented x3 HENMT Head: Yes normocephalic Ears: hearing grossly normal bilaterally General nose exam: Normal external nose present Eyes General: appearance normal, both eyes and all related structures Conjunctivae: conjunctivae normal Neck Neck: Yes full ROM and Yes no lymphadenopathy Resp Effort & Inspection: normal respiratory effort Auscultation: clear to auscultation bilaterally, no crackles, no rales, no rhonchi and no wheezes Cardio Rate: regular rate Rhythm: regular rhythm GI Inspection: Yes normal to inspection Palpation (GI): Soft to palpation, not firm, nontender, no guarding and not rigid General: Yes no CVA tenderness Back/Spine/Pelvis Back: no CVA tenderness Skin General skin exam: no rashes or lesions noted Neuro General: patient oriented x3 Gait exam (Neuro): Normal gait present Extrem General: Yes normal to inspection, Yes full ROM and No edema Psych Affect: normal affect Attitude: cooperative Insight: Good insight present (Psych) Judgement: Good judgement present (Psych) Assessment and Plan Assessment & Plan (1) Pre-op evaluation: Code(s): Z01.818 - Encounter for other preprocedural examination Plan: Patient has no history of hypertension or diabetes. Patient has long history of familial cardiovascular disease but has had no issues with cardiovascular disease personally. Blood pressure is 130/70 at this visit and within normal limits last fasting blood sugar was 98 and within normal limits. Patient has no concerns or complaints at this time. CBC and CMP ordered and completed today and EKG also ordered. Advised patient he may take his medications prior to the day of surgery but hold medications the day of the procedure until after the surgery is completed. Avoid NSAIDs such as Ibuprofen, aspirin, and Naproxen one week prior to surgery. Regarding preop clearance, the patient is at moderate risk for proposed surgery due to age.? Reviewed with the patient that no surgery is completely free of risk and that this examination is to assist the surgeon in reviewing informed consent. Orders: Orders Comprehensive Met. Panel Today Z00.00 - Encounter for general adult medical examination without abnormal findings Complete Blood Count Auto Diff Today Z00.00 - Encounter for general adult medical examination without abnormal findings ECG 12 lead EKG Today Z01.818 - Encounter for other preprocedural examination Coding Level of Care Code Est Pt Level 4 (52165) Diagnoses Pre-op evaluation Z01.818
[2024-01-15 08:22] VITALS: BP 130/70; PULSE 48; O2SAT 98; BMI 25.3
== END 2024-01-15 10:28 | disposition home or self-care (01) ==
PROVIDERS: PCP Internal Medicine
DX: Z01.818 Encounter for other preprocedural examination (principal); N40.0 Benign prostatic hyperplasia without lower urinary tract symptoms
CPT/HCPCS: 99214

== ENCOUNTER 2024-01-15 09:17 | Outpatient (REF) | payer MEDICARE, SELFPAY ==
--- NOTE | 2024-01-15 09:23 | ECG_ITS ---
Test Reason : PREOP Blood Pressure : / mmHG Vent. Rate : 041 BPM Atrial Rate : 041 BPM P-R Int : 242 ms QRS Dur : 110 ms QT Int : 480 ms P-R-T Axes : 075 035 005 degrees QTc Int : 396 ms Marked sinus bradycardia with 1st degree A-V block Septal infarct (cited on or before 17-FEB-2018) Abnormal ECG When compared with ECG of 17-DEC-2021 13:41, Nonspecific T wave abnormality now evident in Inferior leads Nonspecific T wave abnormality no longer evident in Lateral leads Referred By: Gretchen Giron Electronically Signed By:PAYAM SEWELL
[2024-01-15 09:31] LABS: MANUAL DIFF FLAG NO
[2024-01-15 10:07] LABS: Basophils Absolute Auto 0.1 X10*3/uL (0.0-0.2); Eosinophils Absolute Auto 0.2 X10*3/uL (0.0-0.4); Eosinophils Percent Auto 2.1 % (0-4); Hematocrit 42.9 % (42.0-52.0); Hemoglobin 13.8 g/dl (14.0-18.0); Imm Gran Abs Auto 0.05 X10*3/uL (0.00-0.03); Imm Gran Pct Auto 0.5 % (0.0-0.4); Lymphocytes Absolute Auto 1.4 X10*3/uL (1.2-4.9); Lymphocytes Percent Auto 15.4 % (20-40); Mean Corpuscular HGB Conc 32.2 g/dl (31.0-36.0); Mean Corpuscular Hemoglobin 29.1 pg (27.0-33.0); Mean Corpuscular Volume 90.3 fL (80.0-98.0); Mean Platelet Volume 11.4 fL (9.4-12.4); Monocytes Absolute Auto 0.9 X10*3/uL (0.1-1.2); Monocytes Percent Auto 9.4 % (2-11); Neutrophils Absolute Auto 6.7 x10*3/uL (2.0-8.3); Neutrophils Percent Auto 71.6 % (45-73); Platelet Count 196 X10*3/uL (160-400); Red Blood Count 4.75 X10*6/uL (4.60-5.80); Red Cell Distribution Width 13.5 % (11.0-16.0); White Blood Count 9.3 X10*3/uL (4.8-10.8)
[2024-01-15 11:04] LABS: Alanine Aminotransferase 17 U/L (0-40); Albumin Level 4.1 g/dL (3.5-5.0); Alkaline Phosphatase 48 U/L (39-117); Anion Gap 10 (12-20); Aspartate Amino Transferase 19 U/L (5-37); Bilirubin Total 0.5 mg/dL (0.0-1.0); Blood Urea Nitrogen 18 mg/dL (9-16); Calcium 9.3 mg/dL (8.4-10.2); Carbon Dioxide 24 mmol/L (22-29); Chloride 110 mmol/L (96-108); Estimated Glomerular Filt Rate > 60; Glucose Random 88 mg/dL (60-115); Potassium 4.4 mmol/L (3.3-5.1); Sodium 140 mmol/L (135-145); Total Protein 6.7 g/dL (6.5-8.0)
== END 2024-01-15 09:18 | disposition home or self-care (01) ==
LOC: HO.LAB 09:17
PROVIDERS: PCP Internal Medicine
DX: Z00.00 Encounter for general adult medical examination without abnormal findings (principal); Z01.818 Encounter for other preprocedural examination; R94.31 Abnormal electrocardiogram [ECG] [EKG]
CPT/HCPCS: 36415; 80053; 85025; 93005

== ENCOUNTER → 2024-01-15 09:23 | Outpatient (BNV) | payer MEDICARE, SELFPAY | PROVIDERS: PCP Internal Medicine; Visit Provider Internal Medicine | DX: I44.0 Atrioventricular block, first degree (principal) | CPT/HCPCS: 93010 ==

== ENCOUNTER 2024-02-02 22:38 | Emergency (ER) | payer MEDICARE, SELFPAY ==
[2024-02-02 23:52] VITALS: BP 108/75; PULSE 76; RESP 16; TEMP 37; O2SAT 98; BMI 25.1
[2024-02-03 00:18] LABS: MANUAL DIFF FLAG NO
[2024-02-03 00:19] LABS: Basophils Absolute Auto 0.1 X10*3/uL (0.0-0.2); Basophils Percent Auto 0.5 % (0-2); Eosinophils Absolute Auto 0.3 X10*3/uL (0.0-0.4); Hematocrit 35.5 % (42.0-52.0); Imm Gran Abs Auto 0.07 X10*3/uL (0.00-0.03); Imm Gran Pct Auto 0.6 % (0.0-0.4); Lymphocytes Absolute Auto 1.4 X10*3/uL (1.2-4.9); Lymphocytes Percent Auto 11.2 % (20-40); Mean Corpuscular HGB Conc 33.8 g/dl (31.0-36.0); Mean Corpuscular Hemoglobin 29.5 pg (27.0-33.0); Mean Corpuscular Volume 87.2 fL (80.0-98.0); Mean Platelet Volume 11.2 fL (9.4-12.4); Monocytes Absolute Auto 1.3 X10*3/uL (0.1-1.2); Monocytes Percent Auto 10.7 % (2-11); Neutrophils Absolute Auto 9.3 x10*3/uL (2.0-8.3); Platelet Count 203 X10*3/uL (160-400); Red Blood Count 4.07 X10*6/uL (4.60-5.80); Red Cell Distribution Width 13.2 % (11.0-16.0); White Blood Count 12.4 X10*3/uL (4.8-10.8)
[2024-02-03 00:37] LABS: Alanine Aminotransferase 29 U/L (0-40); Albumin Level 3.9 g/dL (3.5-5.0); Alkaline Phosphatase 43 U/L (39-117); Anion Gap 15 (12-20); Aspartate Amino Transferase 30 U/L (5-37); Bilirubin Total 0.5 mg/dL (0.0-1.0); Blood Urea Nitrogen 23 mg/dL (9-16); Calcium 10.2 mg/dL (8.4-10.2); Carbon Dioxide 19 mmol/L (22-29); Chloride 104 mmol/L (96-108); Creatinine Clr Calc Pharmacy 55.5; Estimated Glomerular Filt Rate 53; Glucose Random 129 mg/dL (60-115); Lipase 23 U/L (8-78); Potassium 4.5 mmol/L (3.3-5.1); Sodium 133 mmol/L (135-145)
--- NOTE | 2024-02-03 00:54 | PC.NURSE ---
Pt ca&ox4, no signs of distress. Pt ambulates with a steady gait to restroom Plan of care ongoing
--- NOTE | 2024-02-03 01:06 | PC.NURSE ---
Provider notified and aware of pts bladder scan amount Provider with pt. Plan of care ongoing
--- NOTE | 2024-02-03 02:07 | ED_ITS ---
<Statement entered by Ned Whyte MD - 02/04/24 10:13> The patient was observed for several hours after placement of a urinary catheter. The catheter seemed to be draining well. He was discharged with instructions to follow up with his urologist. HPI - Male Genitourinary General Chief complaint: Urogenital-Male Stated complaint: prostate issues Time Seen by Provider: 02/03/24 00:27 Source: patient, RN notes reviewed and old records reviewed Mode of arrival: ambulatory Limitations: no limitations History of Present Illness ED Provider: Faheem HPI Narrative: 68-year-old male presents for evaluation of difficulty urinating Patient reports that he had an awkward ablation on Thursday with Dr. Олег Delacruz This past Thursday, 2 days ago he had the catheter removedat 9:30 in the morning. He had a follow up appointment are 230 and reports that he was able to urinate about 4 times in between in seemed to be progressing well However starting the following day he reports having some difficulty urinating some lower abdominal discomfort. He states that he is able to urinate but only a small amount of time His urine is in between pink and red He has not noticed any large blood clots Related Data Home Medications ?Medication ?Instructions ?Recorded ?Confirmed vitamin B complex 1 cap PO DAILY 12/19/21 01/15/24 arginine (L-arginine) 500 mg mg PO 05/12/22 01/15/24 capsule echinacea 380 mg capsule 380 mg PO DAILY 05/12/22 01/15/24 fish oil 400 mg-flaxseed 400 cap PO 05/12/22 01/15/24 mg-prim,blk owner consulting engineer,borag oils 200 mg capsule multivitamin 1 tab PO DAILY 05/21/23 01/15/24 Previous Rx's ?Medication ?Instructions ?Recorded walker #1 ea 12/19/21 acetaminophen 325 mg capsule 650 mg (2 x 325 mg) PO Q6H PRN 03/07/23 (Tylenol) pain #20 caps tamsulosin 0.4 mg capsule 0.8 mg (2 x 0.4 mg) PO DAILY 90 05/06/23 days #180 caps finasteride 5 mg tablet 5 mg PO DAILY #90 tabs 09/26/23 lithium carbonate 300 mg capsule See Rx Instructions PO .COMPLEX 90 02/02/24 days #360 caps Allergies Allergy/AdvReac Type Severity Reaction Status Date / Time erythromycin base AdvReac Mild N/V Verified 02/02/24 23:55 [ERYTHROMYCIN BASE] Review of Systems 2 Constitutional: Constitutional: Denies body ache(s), Denies chills and Denies fever(s) Eyes: Eyes: Denies blurry vision ENT: Denies dysphagia and Denies vertigo Cardiovascular: Cardiovascular: Denies chest pain and Denies dyspnea Respiratory: Respiratory: Denies cough and Denies dyspnea Gastrointestinal: Gastrointestinal: Reports abdominal pain, Denies dysphagia, Denies nausea and Denies vomiting Genitourinary: Genitourinary: Reports hematuria, Reports difficulty urinating and Denies dysuria Musculoskeletal: Musculoskeletal: Denies back pain Neurologic: Denies vertigo [facility] Past Medical History Medical History Urinary incontinence Arthritis of left knee Pre-operative clearance Osteoarthritis of right knee Impacted cerumen of right ear TSH elevation Right knee pain Primary osteoarthritis of right knee Bradycardia Onychomycosis High thyroid stimulating hormone (TSH) level Pituitary adenoma Umbilical hernia Ascending aorta dilatation Erectile dysfunction Osteoarthritis of knees, bilateral BPH (benign prostatic hyperplasia) Bipolar 1 disorder Shoulder pain Surgical History H/O colonoscopy Supraumbilical hernia History of surgery Skin cancer of face History of tonsillectomy Family History Family History Father CVD (cardiovascular disease) Mental health disorder Mother Medical history unknown Maternal Aunt Non-Hodgkin lymphoma Paternal Uncle Myocardial infarction Social History Social History Housing: House Are you a primary home visit field care manager to a significant other at home: No Do you presently have visiting nurse or other home services: No Alcohol intake: current Alcohol intake frequency: holidays/special occasions only Alcohol type: beer Comment: 3 beers a month Patient Tobacco Use Status: Former Tobacco user Tobacco use type: Cigarette Years Smoked: December 2003 Smoked in Last 30 Days: No e-Cigarette/Vaping Use: Never Used Second Hand Smoke Exposure: No Use of substances other than those prescribed or required for medical reasons: No Advance Directives: No Advance Directives Information Provided: Yes Do you have a plan to hurt others: No Plan service: No Current occupational status: employed 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 Current occupational exposures/hazards: No Cognitive needs: Yes (walker) Hearing needs: No Vision needs: Yes (glasses) Physical Exam 2 Vital Signs: Vital Signs: Last Vital Signs Temp 98.6 F 02/02/24 23:52 Pulse 76 02/02/24 23:52 Resp 16 02/02/24 23:52 BP 108/75 02/02/24 23:52 Pulse Ox 98 02/02/24 23:52 O2 Del Method Room Air 02/02/24 23:52 BMI result Body Mass Index 25.1 Const: General: healthy appearing, comfortable, no acute distress, alert and awake Nutritional Appearance: well nourished Orientation/consciousness: p atient oriented x3 HEENT: Head: Yes normocephalic and Yes atraumatic Eyes: Eyelids: Yes eyelids normal Conjunctivae: conjunctivae normal S clerae: sclerae normal Corneas: corneas normal Pupils: Equal, round and reactive pupils present EOM: EOMs intact bilaterally Neck: Neck: Yes full ROM Resp: Effort & Inspection: normal respiratory effort, able to speak in complete sentences and not labored Cardio: Rate: regular rate Rhythm: regular rhythm GI: Other: Patient has no significant tenderness including the suprapubic region and his abdomen is not overtly distended. Inspection: No distended Palpation (GI): Soft to palpation, not firm, nontender, no guarding and not rigid Skin: General skin exam: elasticity normal Neuro: General: patient oriented x3 Cranial nerves: Yes Equal, round and reactive pupils present and Yes Bilaterally intact EOM present Cognition (Neuro): normal cognition Course Reevaluation(s) Reevaluation #1: Patient's initial bladder scan showed over 700 cc of urine. Given that there have not been a significant amount of blood clot we will try Castellano catheter in lieu of a 3 way as the patient minute require CBI if he does not have significant clots. He is not anticoagulated Time: 02:18 Reevaluation #2: Patient's Castellano catheter was placed and draining well, it is clear, red urine but without large clots. Will follow up on UA and the patient can safely be discharged to follow up with Urology as long as he continues to drink Time: 02:36 Medications Administered Discontinued Medications Generic Name Dose Route Start Last Admin Trade Name Layla PRN Reason Stop Dose Admin Lidocaine HCl 10 ml 02/03/24 01:31 02/03/24 02:21 Lidocaine Hcl 2 % Urojet 10 Ml Jel.Pf.Justin TOPICAL 02/03/24 01:32 10 ml ONCE ONE Administration Medical Decision Making Medical Decision Making [facility] Narrative: 68-year-old male presents for evaluation of hematuria. Plan for basic labs, urinalysis, bladder scan. The patient is nontoxic appearing, he appears quite comfortable. His vital signs are stable Differential Diagnosis Differential Diagnoses: The differential diagnosis associated with the presentation includes Urinary retention Hematuria Bladder mass UTI BPH Admission/Observation Consideration of admission/observation: Escalation of care including admission/observation considered Consider admission for CBI due to hematuria Lab Data [facility] Lab Attestation statement: I reviewed the patient's lab results. Mild leukocytosis to 12.4, hemoglobin hematocrit are slightly below his baseline which may be related to his recent procedure. Patient's sodium is just below normal at 133, carbon dioxide low at 19 which may be related to hyperventilation due to discomfort with a BUN of 23 and a creatinine of 1.35. His elevated BUN and creatinine to be related to his acute urinary retention 02/03/24 00:11 02/03/24 00:11 Labs: Lab Results 02/03/24 Range/Units 00:11 WBC 12.4 H (4.8-10.8) X10*3/uL RBC 4.07 L (4.60-5.80) X10*6/uL Hgb 12.0 L (14.0-18.0) g/dl Hct 35.5 L (42.0-52.0) % MCV 87.2 (80.0-98.0) fL MCH 29.5 (27.0-33.0) pg MCHC 33.8 (31.0-36.0) g/dl RDW 13.2 (11.0-16.0) % Plt Count 203 (160-400) X10*3/uL MPV 11.2 (9.4-12.4) fL Immature Gran % (Auto) 0.6 H (0.0-0.4) % Neut % (Auto) 75.0 H (45-73) % Lymph % (Auto) 11.2 L (20-40) % Guadalupe % (Auto) 10.7 (2-11) % Eos % (Auto) 2.0 (0-4) % Baso % (Auto) 0.5 (0-2) % Lymph # (Auto) 1.4 (1.2-4.9) X10*3/uL [place]upe # (Auto) 1.3 H (0.1-1.2) X10*3/uL Eos # (Auto) 0.3 (0.0-0.4) X10*3/uL Baso # (Auto) 0.1 (0.0-0.2) X10*3/uL Abs Immat Gran (auto) 0.07 H (0.00-0.03) X10*3/uL Absolute Neuts (auto) 9.3 H (2.0-8.3) x10*3/uL Absolute Nucleated RBC 0.000 (0.0-0.012) X10*3/uL Nucleated RBC % (auto) 0.0 (0.0-0.2) /100WBC Sodium 133 L (135-145) mmol/L Potassium 4.5 (3.3-5.1) mmol/L Chloride 104 (96-108) mmol/L Carbon Dioxide 19 L (22-29) mmol/L Anion Gap 15 (12-20) BUN 23 H (9-16) mg/dL Creatinine 1.35 (0.5-1.4) mg/dL Estim Creat Clear Calc 55.5 Estimated GFR 53 Random Glucose 129 H (60-115) mg/dL Calcium 10.2 D (8.4-10.2) mg/dL Total Bilirubin 0.5 (0.0-1.0) mg/dL AST 30 (5-37) U/L ALT 29 (0-40) U/L Alkaline Phosphatase 43 (39-117) U/L Total Protein 7.0 (6.5-8.0) g/dL Albumin 3.9 (3.5-5.0) g/dL Lipase 23 (8-78) U/L Discharge Plan Discharge Clinical Impression: Hematuria, Acute urinary retention Patient Disposition: Home, Self-Care Instructions: Hematuria (ED) Additional Instructions: Call your urologist, Dr. Delacruz in the morning to let the office know that you need a new Castellano placed Return for new or worsening symptoms, especially develop a fever Prescriptions: No Action (DME[facility] See Rx Instructions .ROUTE .MEDSUPPLY Qty: 1 0RF Rx Instructions: Folding front wheeled walker tamsulosin 0.4 mg capsule 0.8 mg PO DAILY 90 Days Qty: 180 2RF finasteride 5 mg tablet 5 mg PO DAILY Qty: 90 1RF lithium carbonate 300 mg capsule See Rx Instructions PO .COMPLEX 90 Days Qty: 360 1RF Rx Instructions: 2 caps in am and 2 caps noon orally; vitamin B complex [B Complex] Capsule 1 cap PO DAILY acetaminophen [Tylenol] 325 mg capsule 650 mg PO Q6H PRN (Reason: pain) Qty: 20 0RF arginine (L-arginine) 500 mg capsule PO echinacea 380 mg capsule 380 mg PO DAILY Rx Instructions: administer with meals fish,flaxseed oil-e.prim-bcurr 400-400-200 mg capsule PO multivitamin Tablet 1 tab PO DAILY Print Language: Syriac
[2024-02-03] MEDS: Lidocaine HCl 2 % Urojet 10 ML JEL.PF.APP TOPICAL (02:21)
[2024-02-03 02:39] VITALS: BP 114/71; PULSE 77; RESP 19; O2SAT 98
[2024-02-03 03:14] LABS: Appearance Urine Cloudy; Color Urine Red; Glucose Urine UA Negative (Negative); Leukocyte Esterase Urine Large (3+) (Negative); Nitrite Urine Positive (Negative); UMIC TRIGGER UACC YES; Urine Blood Moderate (2+) (Negative); Urine Ketones Negative (Negative); Urine Protein 100 (2+) mg/dL (Neg-Trace)
[2024-02-03 03:28] LABS: Bacteria Urine 4+ (None Seen); Hyaline Casts Urine 0-2 /LPF (0-2); RBC Urine >20 /HPF (0-2); Squamous Epithelial Cell Urine 0-2 /HPF (0-2); UACC Culture Trigger YES; WBC Urine >50 /HPF (0-5)
[2024-02-03 07:15] VITALS: BP 114/71; PULSE 77; RESP 19; TEMP 36.9; O2SAT 98
--- NOTE | 2024-02-03 07:17 | PC.NURSE ---
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 no PIV in place, VSS at time of discharge. awaiting ride at this time
== END 2024-02-03 07:40 | disposition home or self-care (01) ==
PROVIDERS: Emergency Provider Emergency Medicine; PCP Internal Medicine
DX: R31.9 Hematuria, unspecified (principal); R33.9 Retention of urine, unspecified; Z79.899 Other long term (current) drug therapy
CPT/HCPCS: 36415; 51702; 51798; 80053; 81001; 83690; 85025; 87086; 99284; 99285

== ENCOUNTER 2024-05-26 15:12 | Outpatient (AMB) | payer MEDICARE, SELFPAY ==
--- NOTE | 2024-05-26 15:13 | A.OFFPC_ITS ---
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 Required: No Accompanied by: Self / Same As Patient Allergies erythromycin base [ERYTHROMYCIN BASE] Adverse Reaction (Mild, Verified 05/26/24 15:15) N/V Medication List - Last Reconciled 05/26/24 by Tavares Mcgee MD acetaminophen (Tylenol) 650 mg (2 x 325 mg) PO Q6H PRN arginine (L-arginine) mg PO echinacea 380 mg PO DAILY finasteride 5 mg PO DAILY fish,flaxseed oil-e.prim-bcurr 400-400-200 mg caps PO lithium carbonate 2 caps in am and 2 caps noon orally; 90 days multivitamin 1 tab PO DAILY sildenafil 100 mg PO DAILY PRN tamsulosin 0.8 mg (2 x 0.4 mg) PO DAILY 90 days vitamin B complex 1 cap PO DAILY walker Folding front wheeled walker Tobacco use date assessed: 08/24/23 Fall risk assessment: No Falls in past year Last assessed Fall Risk: 05/26/24 Dental Screening Dental Screen Date: 05/26/24 Did you have a dental visit in the last 12 months?: Yes Did you have a dental problem in the last 6 months where you did not have access to dental care?: No Was dental information given to patient?: Patient has dentist HPI PE HPI Details L ear decreased hearingThe patient is a 68-year-old male presenting with benign prostatic hyperplasia (BPH) and urinary retention. The patient has a history of BPH, for which he underwent an aquablation procedure of the prostate in January 2024. During a follow-up visit in December 2023, symptoms of urinary retention persisted. A history of neurogenic bladder complicates the urinary symptoms. The patient continues to manage his BPH to alleviate urinary symptoms. Additionally, the patient has a history of bipolar disorder, managed with lithium. The patient reports adequate symptom control with his current regimen. He also experiences erectile dysfunction and seeks treatment with sildenafil. Previous diagnostic evaluations include an echocardiogram in May 2022, revealing aortic root dilatation and mild aortic regurgitation. A colonoscopy conducted in July 2023 showed benign colonic mucosa. - Discussed management of anemia and tary sources of iron to address mild anemia identified in labs from January 2024. - Recommended vaccination updates includ ing flu and pneumococcal vaccines. - Advised dietary fiber and increased wa ter intake for management of constipation. - Encouraged regular exercise to maintai n physical health and prevent further knee deterioration. - The patient exercises typically four t imes a week. - Consumes alcohol sparingly, approximat pratik three beers per month, and does not use tobacco or illicit drugs. - Experiences occasional dietary challen ges, reporting intake of fruits, vegetables, and occasional high-fiber supplements to assist with constipation. - Lives with his and is actively en gaged in maintaining physical activity and health. - Gastrointestinal: Reports occasional c onstipation. - Cardiovascular: Denies shortness of br eath, dizziness, or chest pain. - Musculoskeletal: Reports chronic knee pain with reduced range of motion. - Neurological: Denies dizziness, nausea , or syncopal episodes. - Genitourinary: Reports nocturia and pr evious urinary retention. - Psychological: Denies symptoms outside of bipolar disorder. [facility] Medical History Urinary incontinence Arthritis of left knee Pre-operative clearance Osteoarthritis of right knee Impacted cerumen of right ear TSH elevation Right knee pain Primary osteoarthritis of right knee Bradycardia Onychomycosis High thyroid stimulating hormone (TSH) level Pituitary adenoma Umbilical hernia Ascending aorta dilatation Erectile dysfunction Osteoarthritis of knees, bilateral BPH (benign prostatic hyperplasia) Bipolar 1 disorder Shoulder pain Surgical History H/O colonoscopy Supraumbilical hernia History of surgery Skin cancer of face History of tonsillectomy Family History Father CVD (cardiovascular disease) Mental health disorder Mother Medical history unknown Maternal Aunt Non-Hodgkin lymphoma Paternal Uncle Myocardial infarction Social History Housing: House Are you a primary resident care director to a significant other at home: No Do you presently have visiting nurse or other home services: No Alcohol intake: current Alcohol intake frequency: holidays/special occasions only Alcohol type: beer Comment: 3 beers a month Patient Tobacco Use Status: Former Tobacco user Tobacco use type: Cigarette Years Smoked: December 2003 e-Cigarette/Vaping Use: Never Used Second Hand Smoke Exposure: No service: No Current occupational status: employed 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 1. Little interest or pleasure in doing things: not at all 2. Feeling down, depressed, or hopeless: not at all 3. Trouble falling or staying asleep, or sleeping too much: not at all 4. Feeling tired or having little energy: not at all 5. Poor appetite or overeating: not at all 6. Feeling bad about yourself - or that you are a failure or have let yourself or your family down: not at all 7. Trouble concentrating on things, such as reading the newspaper or watching television: not at all 8. Moving or speaking so slowly that other people could have noticed. Or the opposite - being so fidgety or restless that you have been moving around a lot more than usual: not at all 9. Thoughts that you would be better off or of hurting yourself in some way: not at all Total score: 0 Depression Screening Interpretation: Negative Depression Screening Done: Yes Source: Developed by Drs. Aung Stacy, Belen Paulino, Lul Galloway and colleagues, with an educational james from [employer]. Thrive Questionnaire Date Thrive assessed: 08/24/23 I am a: Patient What is your living situation today?: I have a steady place to live Within the past 12 months, did the food you bought not last and you didn't have the money to get more?: Never true Within the past 12 months, did you worry whether your food would run out before you got money to buy more?: Never true Do you have trouble paying for medicines?: No Do you have trouble getting transportation to medical appointments?: No Do you have trouble paying your heating and electricity bill?: Yes Do you have trouble taking care of your child, family member or friend?: No Do you have trouble with day-to-day activities such as bathing, preparing meals, shopping, managing finances, etc.?: Yes Are you currently unemployed and looking for a job?: No Are you interested in more education?: Yes Please select the resources that you would like help with: None Currently or been in a relationship where the following occur: I choose not to answer THRIVE Score: 1 AUDIT C Alcohol Use Questionnaire (AUDIT-C) 1. How often do you have a drink containing alcohol?: 2-4 times a month 2. How many drinks containing alcohol do you have on a typical day when you are drinking?: 1 or 2 3. How often do you have six or more drinks on one occasion?: Never Total Score: 2 FLAKITO-7 AMB Questionnaire FLAKITO-7 Date FLAKITO - 7 assessed: 08/24/23 Feeling nervous, anxious, or on edge: 1 = Several days Not being able to stop or control worryin = More than half the days Worrying too much about different things: 2 = More than half the days Trouble relaxin = More than half the days Being so restless that it is hard to sit still: 0 = Not at all Becoming easily annoyed or irritable: 2 = More than half the days Feeling afraid as if something awful might happen: 2 = More than half the days Total FLAKITO-7 score (0-4 normal; 5-9 mild; 10-14 moderate; 15-21 severe): 11 Source: Developed by Drs. Aung Stacy, Belen Paulino, Lul Galloway and colleagues, with an educational james from [employer]. Review of Systems Const Denies poor appetite and Denies weakness Eyes Denies no additional complaints ENT Reports Normal hearing present, Denies dizziness, Denies nasal congestion, Denies tinnitus and Denies sore throat Card Denies chest pain, Denies syncope, Denies rapid heart rate and Denies dyspnea Resp Denies cough and Denies dyspnea GI Denies change in stool character, Reports constipation, Denies diarrhea, Denies nausea and Denies vomiting Denies dysuria and Denies urinary frequency Neuro Reports Normal hearing present, Denies confusion, Denies dizziness, Denies syncope and Denies weakness Psych Denies confusion Physical exam (Primary Care) Vital Signs: Last Vital Signs Pulse 56 05/26/24 15:17 BP 138/76 05/26/24 15:17 Pulse Ox 96 05/26/24 15:17 Oxygen Delivery Method Room Air 05/26/24 15:17 BMI result Body Mass Index 25.7 Tobacco/Smoking Status: Tobacco use Status Tobacco use date assessed 08/24/23 05/26/24 15:25 Patient Tobacco Use Status Former Tobacco user 05/26/24 15:25 Tobacco use type Cigarette 05/26/24 15:25 e-Cigarette/Vaping Use Never Used 05/26/24 15:25 PHQ-9: PHQ-9 Score PHQ-9: Total score 0 05/26/24 16:12 Depression Screening Interpretation: Negative Thrive Assessment: Date of Thrive Assessment Date Thrive assessed 08/24/23 05/26/24 15:25 Currently or been in a relationship where the following occur: I choose not to answer Const General: No confusion Orientation/consciousness: No confusion HENMT Head: Yes normocephalic Ears: external ears normal and TM's normal bilaterally Face and sinus: Yes normal facial exam Mouth: moist mucous membranes Throat: Yes tonsils normal Eyes Conjunctivae: conjunctivae normal Pupils: Equal, round and reactive pupils present and Pupil accommodation reflex normal Direct Ophthalmoscopy: normal light reflex Neck Neck: No lymphadenopathy Thyroid: Thyroid normal Chest Chest palpation & inspection: normal inspection of the chest Resp Effort & Inspection: normal respiratory effort and no audible wheezes Auscultation: clear to auscultation bilaterally, no crackles, no wheezes and lung sounds not diminished Cardio Rate: regular rate Rhythm: regular rhythm Peripheral pulses: radial pulses present and dorsalis pedis present GI Palpation (GI): no masses Auscultation: normal bowel sounds and normoactive bowel sounds Rectal Exam - Male: Yes deferred Skin General skin exam: no rashes or lesions noted Rashes: no rashes Neuro General: No confusion Cranial nerves: Yes Equal, round and reactive pupils present and Yes Normal hearing present Cognition (Neuro): normal cognition Gait exam (Neuro): Normal gait present Motor exam (neuro): 5/5 motor strength present throughout Deep tendon reflexes (DTR's): Right brachioradialis reflex intensity grade: 2+, Left brachioradialis reflex intensity grade: 2+, Right patellar reflex intensity grade: 2+ and Left patellar reflex intensity grade: 2+ Extrem General: No edema Office Procedures Flu Questionnaire Does the patient have a severe egg allergy?: No Does the patient have severe life threatening allergies?: No Does the patient have a fever or illness today?: No Has the patient ever had Guillain-[place] Syndrome?: No Has the patient ever had any past reaction to a flu shot?: No Immunizations Fluarix Triv [id number] (PF) 45 mcg (15 mcg x 3)/0.5 mL IM syringe Performing Provider: Tavares Mcgee MD [facility] Administered by: ABBY Erwin on 05/26/24 16:13 Dose Route Admin Location Dispensed Lot Number Expiration Date NDC Line Department Supervisor 0.5 mL IM Left Deltoid 0.5 mL [id number] 12/19/24 [id number] Powered Now VIS Given Date VIS Provided VIS Publication Date 05/26/24 Single Vaccine 21 Eligibility Eligibility Date Funding Source Not [facility] Eligible 05/26/24 Private Coding Level of Care Code Est Pt Prev Care >65y(73092) Diagnoses Annual physical exam Z00.00 Benign prostatic hyperplasia with urinary frequency N40.1; R35.0 Lower urinary tract symptom detail: urinary frequency Lower urinary tract symptom presence: symptoms present Bipolar 1 disorder F31.9 Chronic anemia D64.9 Primary osteoarthritis of both knees M17.0 Laterality: bilateral Osteoarthritis type: primary Slow transit constipation K59.01 Constipation type: slow transit constipation Bilateral primary osteoarthritis of knee M17.0 Multiple nevi D22.9 Assessment & Plan Assessment & Plan (1) Annual physical exam: Code(s): Z00.00 - Encounter for general adult medical examination without abnormal findings Category: Medical Plan: Patient is advised to eat healthy, keep well hydrated, keep active and have adequate sleep. (2) BPH (benign prostatic hyperplasia): Comment: Aqua ablation January 2024 Code(s): N40.0 - Benign prostatic hyperplasia without lower urinary tract symptoms Category: Medical Qualifiers: Lower urinary tract symptom detail: urinary frequency Lower urinary tract symptom presence: symptoms present Qualified Code(s): N40.1 - Benign prostatic hyperplasia with lower urinary tract symptoms; R35.0 - Frequency of micturition Plan: Patient has been placed on finasteride and tamsulosin and follows up with urology (3) Bipolar 1 disorder: Comment: Declined therapy February 2020 Code(s): F31.9 - Bipolar disorder, unspecified Category: Medical Plan: Continue with present medication advised need to follow-up with psychiatry (4) Chronic anemia: Code(s): D64.9 - Anemia, unspecified Category: Medical Plan: Continue to monitor (5) Osteoarthritis, knee: Code(s): M17.9 - Osteoarthritis of knee, unspecified Category: Medical Qualifiers: Laterality: bilateral Osteoarthritis type: primary Qualified Code(s): M17.0 - Bilateral primary osteoarthritis of knee Plan: Patient has seen Orthopedics and has had injections (6) Constipation: Code(s): K59.00 - Constipation, unspecified Category: Medical Qualifiers: Constipation type: slow transit constipation Qualified Code(s): K59.01 - Slow transit constipation Plan: Three rules for constipation 1. Diet need to have a high fiber diet less of meat 2. Increase oral fluids 3. Exercise (7) Bilateral primary osteoarthritis of knee: Code(s): M17.0 - Bilateral primary osteoarthritis of knee Category: Medical Plan: Keep active and continue to follow-up with orthopedics (8) Multiple nevi: Code(s): D22.9 - Melanocytic nevi, unspecified Category: Medical Plan: Patient is referred to Dermatology Plan - Labs: Mild anemia (Hemoglobin 12, Hematocrit 35). - Creatinine: 1.35 (Normal renal function). - Sodium: 133 (Mild hyponatremia noted). - Echocardiogram (May 2022): Aortic root dilatation, mild aortic regurgitation, mitral valve prolapse. - Benign Prostatic Hyperplasia: Continue management with tamsulosin. Monitor for urinary symptoms and adjust treatment as needed. - Bipolar Disorder: Continue lithium therapy and coordinate with psychiatry for ongoing management. - Erectile Dysfunction: Prescribed sildenafil with specific dosing instructions. - Neurogenic Bladder: Continue monitoring urinary function post-procedure. - Anemia: Advise dietary modifications to improve hemoglobin levels. Monitor blood counts. - Constipation: Increase dietary fiber and fluid intake regularly. - Aortic Root Dilatation: Referral to cardiology for monitoring and management. - Hemorrhoids: Recommend dietary changes and consider treatment options if symptoms persist. - Chronic Knee Pain: Suggest use of Voltaren gel for symptomatic relief of pain and inflammation. I discussed the continuation of tamsulosin for BPH management and the successful recovery from prostate aquablation. Given the mild anemia, dietary modification to include more iron-rich foods was advised. The patient was educated on the risks and benefits of sildenafil for erectile dysfunction, stressing the importance of adhering to prescribed dosages. I emphasized the impact of fiber and hydration on constipation management. For knee pain, I recommended topical Voltaren gel, elaborating on its benefits and safety profile. We reviewed the patient's immunization status, advocating for flu and pneumococcal vaccines. Follow-up with cardiology for aortic root dilatation assessment was advised to ensure proper monitoring and management. - Continue taking tamsulosin as prescribed for BPH. - Increase dietary fiber and fluid intake to manage constipation. - Use sildenafil as directed for erectile dysfunction. - Apply Voltaren gel to affected knee areas as needed for pain relief. - Monitor dietary intake to address anemia and incorporate iron-rich foods. - Arrange for flu and pneumococcal vaccinations at the pharmacy. - Schedule follow-up with cardiology for monitoring of aortic root dilatation. - Maintain regular exercise and healthy lifestyle practices. Orders: Orders Comprehensive Met. Panel 3 Months D64.9 - Anemia, unspecified Thyroid Stimulating Hormone 3 Months D64.9 - Anemia, unspecified Lipid Panel 3 Months D64.9 - Anemia, unspecified, E78.00 - Pure hypercholesterolemia, unspecified Vitamin B12 and Folate 3 Months D64.9 - Anemia, unspecified Ferritin 3 Months D64.9 - Anemia, unspecified IRON PROFILE 3 Months D64.9 - Anemia, unspecified Influenza [id number] Immunization Today Z23 - Encounter for immunization Complete Blood Count Auto Diff 3 Months D64.9 - Anemia, unspecified Free T4 (Free Thyroxine) 3 Months D64.9 - Anemia, unspecified Prostate Specific Antigen Scr 3 Months D64.9 - Anemia, unspecified Reticulocyte Count 3 Months D64.9 - Anemia, unspecified Referrals Dermatology Referral D22.9 - Melanocytic nevi, unspecified Medications: Refilled sildenafil administer 30 minutes to 4 hours before activity 100 mg PO DAILY PRN 14 tabs 5RF sexual activity K59.00 - Constipation, unspecified tamsulosin 0.8 mg (2 x 0.4 mg) PO DAILY 180 caps 2RF 90 days N40.0 - Benign prostatic hyperplasia without lower urinary tract symptoms lithium carbonate 2 caps in am and 2 caps noon orally; 360 caps 1RF 90 days F31.9 - Bipolar disorder, unspecified
[2024-05-26 15:17] VITALS: BP 138/76; PULSE 56; O2SAT 96; BMI 25.7
== END 2024-05-26 16:13 | disposition home or self-care (01) ==
PROVIDERS: PCP Internal Medicine; Visit Provider Internal Medicine
DX: N40.1 Benign prostatic hyperplasia with lower urinary tract symptoms (principal); R35.0 Frequency of micturition; F31.9 Bipolar disorder, unspecified; D64.9 Anemia, unspecified; M17.0 Bilateral primary osteoarthritis of knee; K59.01 Slow transit constipation; D22.9 Melanocytic nevi, unspecified; Z23 Encounter for immunization

== ENCOUNTER → 2024-05-26 15:12 | Outpatient (BNVA) | payer MEDICARE, SELFPAY | PROVIDERS: PCP Internal Medicine; Visit Provider Internal Medicine | DX: Z00.00 Encounter for general adult medical examination without abnormal findings (principal); Z23 Encounter for immunization; N40.1 Benign prostatic hyperplasia with lower urinary tract symptoms; R35.0 Frequency of micturition; F31.9 Bipolar disorder, unspecified; D64.9 Anemia, unspecified; M17.0 Bilateral primary osteoarthritis of knee; K59.01 Slow transit constipation; D22.9 Melanocytic nevi, unspecified | CPT/HCPCS: 90471; 90656; 96127; 99212 ==

== ENCOUNTER 2024-07-13 16:08 | Outpatient (AMB) | payer MEDICARE, SELFPAY ==
[2024-07-13 16:12] VITALS: BP 124/76; PULSE 60; O2SAT 98; BMI 25.9
--- NOTE | 2024-07-13 16:12 | A.OFFPC_ITS ---
Vital Signs 07/13/24 16:12 Height 5 ft 10 in Weight 180 lb 6 oz BMI 25.9 BP 124/76 Blood Pressure Location Lt brachial Position Sitting Pulse 60 Pulse Source Pulse Oximeter Pulse Oximetry (%) 98 Oxygen Delivery Method Room Air Intake Visit Reasons: Requesting PT Order and Derm Referral Urologist Physician Required: No Accompanied by: Self / Same As Patient Allergies erythromycin base [ERYTHROMYCIN BASE] Adverse Reaction (Mild, Verified 07/13/24 16:29) N/V Medication List - Last Reconciled 07/13/24 by ALONZO Valente acetaminophen (Tylenol) 650 mg (2 x 325 mg) PO Q6H PRN arginine (L-arginine) mg PO cyclobenzaprine mg PO 3XD echinacea 380 mg PO DAILY finasteride 5 mg PO DAILY fish,flaxseed oil-e.prim-bcurr 400-400-200 mg caps PO lithium carbonate 2 caps in am and 2 caps noon orally; 90 days multivitamin 1 tab PO DAILY sildenafil 100 mg PO DAILY PRN tamsulosin 0.8 mg (2 x 0.4 mg) PO DAILY 90 days vitamin B complex 1 cap PO DAILY walker Folding front wheeled walker Tobacco use date assessed: 07/13/24 Fall risk assessment: No Falls in past year Last assessed Fall Risk: 07/13/24 Dental Screening Dental Screen Date: 07/13/24 Did you have a dental visit in the last 12 months?: Yes Did you have a dental problem in the last 6 months where you did not have access to dental care?: No Was dental information given to patient?: Patient has dentist HPI Requesting PT Order and Derm Referral HPI Details The patient is a 68-year-old male presenting for re eval of low the strain The patient was previously seen in urgent care for this injury He was placed on activity restrictions of no squatting or bending at work He was cleared for all his other duties at work low back strain: reports that pain at a 5 or 6/10 continue nagging pain, at times, it increases to a sharp pain when it is aggravated reports bending and squatting re-aggravate his lower back This causes him pain +tender to right lower lumbar region pt referral placed and the patient was ordered a lumbar xr The patient reports that he was seen prevously and was referred to Dermatolgy He has an appt but it is all the way in January He is requesting referral to another computer systems architect To see if he can get a sooner appt. reports hx of melanic nevi that he had to get removed. Reports skin cancer runs in his family Dermatology referral placed [facility] Medical History Urinary incontinence Arthritis of left knee Pre-operative clearance Osteoarthritis of right knee Impacted cerumen of right ear TSH elevation Right knee pain Primary osteoarthritis of right knee Bradycardia Onychomycosis High thyroid stimulating hormone (TSH) level Pituitary adenoma Umbilical hernia Ascending aorta dilatation Erectile dysfunction Osteoarthritis of knees, bilateral BPH (benign prostatic hyperplasia) Bipolar 1 disorder Shoulder pain Surgical History H/O colonoscopy Supraumbilical hernia History of surgery Skin cancer of face History of tonsillectomy Family History Father CVD (cardiovascular disease) Mental health disorder Mother Medical history unknown Maternal Aunt Non-Hodgkin lymphoma Paternal Uncle Myocardial infarction Social History Housing: House Are you a primary rn transitional care to a significant other at home: No Do you presently have visiting nurse or other home services: No Alcohol intake: current Alcohol intake frequency: holidays/special occasions only Alcohol type: beer Comment: 3 beers a month Patient Tobacco Use Status: Former Tobacco user Tobacco use type: Cigarette Years Smoked: December 2003 e-Cigarette/Vaping Use: Never Used Second Hand Smoke Exposure: No service: No Current occupational status: employed 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 1. Little interest or pleasure in doing things: not at all 2. Feeling down, depressed, or hopeless: not at all 3. Trouble falling or staying asleep, or sleeping too much: not at all 4. Feeling tired or having little energy: not at all 5. Poor appetite or overeating: not at all 6. Feeling bad about yourself - or that you are a failure or have let yourself or your family down: not at all 7. Trouble concentrating on things, such as reading the newspaper or watching television: not at all 8. Moving or speaking so slowly that other people could have noticed. Or the opposite - being so fidgety or restless that you have been moving around a lot more than usual: not at all 9. Thoughts that you would be better off or of hurting yourself in some way: not at all Total score: 0 Depression Screening Interpretation: Negative Depression Screening Done: Yes 74526 - PHQ-9 Billing: Yes Source: Developed by Drs. Aung Stacy, Belen Paulino, Lul Galloway and colleagues, with an educational james from [employer]. Thrive Questionnaire Date Thrive assessed: 07/13/24 I am a: Patient What is your living situation today?: I have a steady place to live Within the past 12 months, did the food you bought not last and you didn't have the money to get more?: Never true Within the past 12 months, did you worry whether your food would run out before you got money to buy more?: Never true Do you have trouble paying for medicines?: No Do you have trouble getting transportation to medical appointments?: No Do you have trouble paying your heating and electricity bill?: Yes Do you have trouble taking care of your child, family member or friend?: No Do you have trouble with day-to-day activities such as bathing, preparing meals, shopping, managing finances, etc.?: Yes Are you currently unemployed and looking for a job?: No Are you interested in more education?: Yes Please select the resources that you would like help with: None Currently or been in a relationship where the following occur: I choose not to answer THRIVE Score: 1 AUDIT C Alcohol Use Questionnaire (AUDIT-C) 1. How often do you have a drink containing alcohol?: 2-4 times a month 2. How many drinks containing alcohol do you have on a typical day when you are drinking?: 1 or 2 3. How often do you have six or more drinks on one occasion?: Never Total Score: 2 FLAKITO-7 AMB Questionnaire FLAKITO-7 Date FLAKITO - 7 assessed: 07/13/24 Feeling nervous, anxious, or on edge: 1 = Several days Not being able to stop or control worryin = More than half the days Worrying too much about different things: 2 = More than half the days Trouble relaxin = More than half the days Being so restless that it is hard to sit still: 0 = Not at all Becoming easily annoyed or irritable: 2 = More than half the days Feeling afraid as if something awful might happen: 2 = More than half the days Total FLAKITO-7 score (0-4 normal; 5-9 mild; 10-14 moderate; 15-21 severe): 11 Source: Developed by Drs. Aung Stacy, Belen Paulino, Lul Galloway and colleagues, with an educational james from [employer]. FLAKITO-7 Assessment Billing FLAKITO-7 Assessment Tool: FLAKITO-7 Assessment 51812 Review of Systems Const Details: Denies chills, Denies fatigue, Denies fever(s), Denies headache(s) and Denies weakness HEENT Denies change in vision, Denies dizziness, Denies headache(s), Denies hearing loss, Denies nasal congestion, Denies sinus pain, Denies sinus pressure and Denies sore throat Card Denies chest pain, Denies lightheadedness, Denies dyspnea and Denies other (palpitations) Resp Denies cough, Denies dyspnea and Denies wheezing GI Denies abdominal pain, Denies melena, Denies hematochezia, Denies change in bowel habits, Denies dyspepsia and Denies nausea Denies hematuria and Denies dysuria Musc other:+lower back, more towards the right side Denies abnormal gait Denies numbness and Denies tingling Skin/Breast other:reports hx of melanic nevi that he had to get removed. Reports skin cancer runs in his family Denies rash, Denies unusual bruising and Denies wounds Neuro Denies abnormal gait, Denies dizziness, Denies headache(s), Denies memory loss, Denies numbness, Denies Sensory deficit (Neuro), Denies tingling and Denies weakness Psych Denies anxiety, Denies depression and Denies memory loss Endo Denies cold intolerance, Denies fatigue, Denies heat intolerance, Denies polydipsia and Denies polyuria Ray/Lymph Denies easy bleeding and Denies easy bruising Aller/Immun Denies wheezing Physical exam (Primary Care) Vital Signs: Last Vital Signs Pulse 60 07/13/24 16:12 BP 124/76 07/13/24 16:12 Pulse Ox 98 07/13/24 16:12 Oxygen Delivery Method Room Air 07/13/24 16:12 BMI result Body Mass Index 25.9 Tobacco/Smoking Status: Tobacco use Status Tobacco use date assessed 07/13/24 07/13/24 16:20 Patient Tobacco Use Status Former Tobacco user 07/13/24 16:20 Tobacco use type Cigarette 07/13/24 16:20 e-Cigarette/Vaping Use Never Used 07/13/24 16:20 PHQ-9: PHQ-9 Score PHQ-9: Total score 0 07/13/24 16:43 Depression Screening Interpretation: Negative Thrive Assessment: Date of Thrive Assessment Date Thrive assessed 07/13/24 07/13/24 16:20 Currently or been in a relationship where the following occur: I choose not to answer Const Other: General: no acute distress, well developed, alert and awake Nutritional Appearance: well nourished Orientation/consciousness: patient oriented x3 HENMT Head: Yes normocephalic and Yes atraumatic Ears: hearing grossly normal bilaterally and TM's normal bilaterally General nose exam: Normal external nose present and Normal nares present Mouth: Normal oral and palatal mucosa present and moist mucous membranes Eyes Pupils: Equal, round and reactive pupils present and Pupil accommodation reflex normal EOM: EOMs intact bilaterally Neck Neck: Yes normal visual inspection, Yes no lymphadenopathy and Yes trachea midline Thyroid: Thyroid normal Carotids: no bruits Lymphatic: no lymphadenopathy noted Chest Chest palpation & inspection: normal inspection of the chest Resp Effort & Inspection: normal respiratory effort Auscultation: clear to auscultation bilaterally Cardio Rate: regular rate Rhythm: regular rhythm Heart sounds: S1 normal heart sound present, S2 normal heart sound present, no gallops, no murmurs and no rubs GI Palpation (GI): Abdomen flat, soft and nontender to palpation Auscultation: normal bowel sounds General: Yes no CVA tenderness Back/Spine/Pelvis Back: no CVA tenderness other: lower lumbar tenders, +straight leg raise resulted with pain in the right lower back Skin General: warm and dry. Normal skin color. Normal skin turgor Lesions: reports melonic nevi Nails: normal Neuro General: patient oriented x3, gait normal Cranial nerves: Yes Equal, round and reactive pupils present Cognition (Neuro): normal cognition Gait exam (Neuro): Normal gait present Motor exam (neuro): 5/5 motor strength present throughout Sensory Exam: No Sensory deficit (Neuro) Deep tendon reflexes (DTR's): Right patellar reflex intensity grade: 2+ and Left patellar reflex intensity grade: 2+ Extrem General: Yes normal to inspection, No edema and No calf tenderness Psych Appearance: grossly normal Affect: normal affect Attitude: cooperative Thought process: Normal thought process present Coding Level of Care Code Est Pt Level 3 (25689) Diagnoses Low back pain without sciatica, unspecified back pain laterality, unspecified chronicity M54.50 Chronicity: unspecified Back pain laterality: unspecified Sciatica presence: without sciatica Multiple nevi D22.9 Additional Codes PHQ-9 - 92814 - PHQ-9 Billing: Yes ([id number]) FLAKITO-7 Assessment Billing - FLAKITO-7 Assessment Tool: FLAKITO-7 Assessment 76896 ([id number]) Time Spent (min) 35 Assessment & Plan Assessment & Plan (1) Lower back pain: Code(s): M54.50 - Low back pain, unspecified Category: Medical Qualifiers: Chronicity: unspecified Back pain laterality: unspecified Sciatica presence: without sciatica Qualified Code(s): M54.50 - Low back pain, unspecified Plan: PT referral placed and the patient was ordered a lumbar xray encouraged activity modifications continue tylenol otc as neede (2) Multiple nevi: Code(s): D22.9 - Melanocytic nevi, unspecified Category: Medical Plan: New referral placed per patient request Orders: Orders XR lumbar spine 2-3V 07/13/24 M54.50 - Low back pain, unspecified Referrals Dermatology Referral D22.9 - Melanocytic nevi, unspecified Physical Medicine and Rehabilitation Referral M54.50 - Low back pain, unspecified
--- OUTSIDE RECORDS SUMMARY | 2024-07-13 18:09 | XMS_ITS | Clinical Summary ---
Author Organization [facility] ity Address [address] [place] [address] Care Team Providers Care Cad Programmer Name Role Phone Tavares Mcgee MD Primary Care Provider [phone] Surgical History Surgery Date Site/Laterality Comments TONSILLECTOMY ADENOIDECTOMY, BILATERAL MYRINGOTOMY AND TUBES PROCEDURE: NE TONSILLECTOMY & ADENOIDECTOMY <AGE 14 OTHER SURGICAL HISTORY PROCEDURE: NE EXCISION MALIGNANT LESION F/E/E/N/L 0.5 CM/< Medical History Medical History Date Comments Joint problem DX:Joint problem Ascending aorta dilatation (CMS/HCC) DX:Ascending aorta dilatation (HCC) Bipolar 1 disorder (CMS/HCC) DX: Bipolar 1 disorder (HCC) BPH (benign prostatic hyperplasia) DX:BPH (benign prostatic hyperplasia) Erectile dysfunction DX:Erectile dysfunction Osteoarthritis of knees, bilateral DX:Osteoarthritis of knees, bilateral Pituitary abnormality (CMS/HCC) DX:Pituitary abnormality (HCC) Umbilical hernia DX:Umbilical he rnia Ventral hernia DX:Ventral herni a Family History Medical History Relation Name Comments Depression Father Hypertension Father Other: heart attack Father Hypertension Mother Relation Name Status Comments Father Mother Social History Tobacco Use Types Packs/Day Years Used Date Smoking Tobacco: Former Smokeless Tobacco: Former Alcohol Use Standard Drinks/Week Comments Yes 1 (1 standard drink = 0.6 oz pur e alcohol) Sex and Gender Information Value Date Recorded Sex Assigned at Not on file Gender Identity Not on file Sexual Orientation Not on file Obstetrics History Last Filed Vital Signs Vital Sign Reading Time Taken Comments Blood Pressure 130/76 03/02/2023 4:15 PM EDT Pulse 43 03/02/2023 4:15 PM EDT pt confirms low pulse history Temperature - - Respiratory Rate - - Oxygen Saturation - - Inhaled Oxygen Concentration - - Weight 80.7 kg (178 lb) 04/11/2024 3:10 PM EDT Height 177.8 cm (5' 10 ) 04/11/2024 3:1 0 PM EDT Body Mass Index 25.54 04/11/2024 3:10 PM EDT Plan of Treatment Health Maintenance Due Date Last Done Comments COVID-19 Vaccine (#1) 1962 Pneumococcal Vaccine: 65+ Ye ars (1 of 2 - PCV) 10/26/1963 DTaP,Tdap,and Td Vaccines (1 - Tdap) 1976 Zoster Vaccines (1 of 2) 1976 Abdominal Aortic Aneurysm (A AA) Screen 05/25/2022 Cholesterol Screening (Lipid Panel) 05/25/2022 Colorectal Cancer Screening: Colonoscopy 05/25/2022 Depression Screening 05/25/2022 Hepatitis C Screening 05/25/2022 Social Influencers of Health Screening 05/25/2022 Falls Risk Assessment 2022 Influenza Vaccine (#1) 2024 RSV Immunization Patients 60 + Years Old (1 - 1-dose 75+ series) 2032 HIB Vaccines Aged Out No longer eligi ble based on patient's age to complete this topic HPV Vaccines Aged Out No longer eligi ble based on patient's age to complete this topic Hepatitis A Vaccines Aged Out No long er eligible based on patient's age to complete this topic Hepatitis B Vaccines Aged Out No long er eligible based on patient's age to complete this topic IPV Vaccines Aged Out No longer eligi ble based on patient's age to complete this topic MMR Vaccines Aged Out No longer eligi ble based on patient's age to complete this topic Meningococcal ACWY Vaccine Aged Out N o longer eligible based on patient's age to complete this topic RSV Immunization Patients Un lashell 20 months Aged Out No longer eligible b ased on patient's age to complete this topic Varicella Vaccines Aged Out No longer eligible based on patient's age to complete this topic Care Teams Cad Programmer Relationship Specialty Start Date End Date Tavares Mcgee MD [address] [place] [address] [address] [facility] [place] [address] PCP - General Internal Medicine 01/20/20
== END 2024-07-13 17:21 | disposition home or self-care (01) ==
PROVIDERS: PCP Internal Medicine
DX: M54.50 Low back pain, unspecified (principal); D22.9 Melanocytic nevi, unspecified

== ENCOUNTER → 2024-07-13 16:08 | Outpatient (BNVA) | payer MEDICARE, SELFPAY | PROVIDERS: PCP Internal Medicine | DX: M54.50 Low back pain, unspecified (principal); D22.9 Melanocytic nevi, unspecified | CPT/HCPCS: 96127; 99212 ==

== ENCOUNTER 2024-07-21 16:03 | Outpatient (REF) | payer MEDICARE, SELFPAY ==
--- NOTE | ~2024-07-21 | XR_ITS ---
CLINICAL HISTORY: M54.50 - Low back pain, unspecified Exam: AP, lateral, and spot lateral views of the lumbar spine. Comparison: None. Findings: There is moderate convex left thoracolumbar curvature with moderate to severe convex right mid lumbar curvature. Lateral view demonstrates straightening of the normal lumbar lordosis. No acute fracture identified. Severe multilevel degenerative disc disease and degenerative facet disease throughout the lumbar spine, especially along the concave portion of the curvature. Impression: Spinal curvature as above with severe multilevel degenerative change. This document has been electronically signed by: Murali Tejada MD on 07/22/2024 17:30:18
--- OUTSIDE RECORDS SUMMARY | 2024-07-21 19:31 | XMS_ITS | Clinical Summary ---
Author Organization [facility] ity Address [address] [place] [address] Care Team Providers Care Director Of Academic Support Name Role Phone Tavares Mcgee MD Primary Care Provider [phone] Allergies Active Allergy Reactions Criticality Noted Date Comments Erythromycin 09/12/2020 Medications Medication Sig Dispensed Refills Start Date End Date Status bethanechol (URECHOLINE) 50 mg tablet TAKE 1 TABLET BY MOUTH TWICE A DAY FOR 30 DAYS Active lithium 300 mg capsule TAKE 2 CAPSULES BY MOUTH TWICE A DAY Active miconazole nitrate 2 % aerosol,spray Apply 1 Applicator topically daily. Active tamsulosin (FLOMAX) 0.4 mg 24 hr capsule Take 0.4 mg by mouth daily. Take 30 mins after same meal every day. Active finasteride (PROSCAR) 5 mg tablet Take 1 Tablet by mouth daily. Active Active Problems Problem Noted Date Diagnosed Date Basal cell carcinoma 03/09/2013 Surgical History Surgery Date Site/Laterality Comments TONSILLECTOMY ADENOIDECTOMY, BILATERAL MYRINGOTOMY AND TUBES PROCEDURE: RI TONSILLECTOMY & ADENOIDECTOMY <AGE 14 OTHER SURGICAL HISTORY PROCEDURE: RI EXCISION MALIGNANT LESION F/E/E/N/L 0.5 CM/< Medical [...] 04/11/2024 3:10 PM EDT Plan of Treatment Upcoming Encounters Date Type Department Care Team (Late st Contact Info) Description 08/31/2024 3:15 PM EDT Office Visit Orthopedic Surgery - [place] [address] [address] Alberto Gleason, DPM [address] [address] Health Maintenance Due Date Last Done Comments [...] age to complete this topic Care Teams Director Of Academic Support Relationship Specialty Start Date End Date Tavares Mcgee MD [address] [place] [address] [address] [facility] [place] [address] PCP - General Internal Medicine 01/20/20
== END 2024-07-21 16:04 | disposition home or self-care (01) ==
LOC: HO.XRAY 16:03
PROVIDERS: PCP Internal Medicine
DX: M54.50 Low back pain, unspecified (principal)
CPT/HCPCS: 72100

== ENCOUNTER → 2024-07-21 16:17 | Outpatient (BNV) | payer MEDICARE, SELFPAY | PROVIDERS: PCP Internal Medicine; Visit Provider Radiology Diagnostic Radiology | DX: M51.370 Other intervertebral disc degeneration, lumbosacral region with discogenic back pain only (principal) | CPT/HCPCS: 72100 ==

== ENCOUNTER 2024-09-08 15:40 | Outpatient (REF) | payer MEDICARE, SELFPAY ==
[2024-09-08 15:57] LABS: MANUAL DIFF FLAG NO
[2024-09-08 16:17] LABS: Basophils Absolute Auto 0.1 X10*3/uL (0.0-0.2); Basophils Percent Auto 0.8 % (0-2); Eosinophils Absolute Auto 0.3 X10*3/uL (0.0-0.4); Eosinophils Percent Auto 3.1 % (0-4); Hematocrit 38.7 % (42.0-52.0); Hemoglobin 12.8 g/dl (14.0-18.0); Imm Gran Abs Auto 0.03 X10*3/uL (0.00-0.03); Imm Gran Pct Auto 0.3 % (0.0-0.4); Immature Retic Fraction 8.6 % (2.3-13.4); Lymphocytes Absolute Auto 1.8 X10*3/uL (1.2-4.9); Lymphocytes Percent Auto 19.1 % (20-40); Mean Corpuscular HGB Conc 33.1 g/dl (31.0-36.0); Mean Corpuscular Hemoglobin 29.3 pg (27.0-33.0); Mean Corpuscular Volume 88.6 fL (80.0-98.0); Mean Platelet Volume 11.4 fL (9.4-12.4); Monocytes Absolute Auto 0.9 X10*3/uL (0.1-1.2); Neutrophils Absolute Auto 6.4 x10*3/uL (2.0-8.3); Neutrophils Percent Auto 67.7 % (45-73); Platelet Count 179 X10*3/uL (160-400); Red Blood Count 4.37 X10*6/uL (4.60-5.80); Retic HGB Equivalent 30.9 pg (30.0-35.0); Reticulocyte Percent 2.6 % (0.5-1.8); Reticulocytes Absolute 0.113 X10*6/uL (0.026-0.095); White Blood Count 9.5 X10*3/uL (4.8-10.8)
[2024-09-08 16:39] LABS: Alanine Aminotransferase 20 U/L (0-40); Albumin Level 3.9 g/dL (3.5-5.0); Alkaline Phosphatase 52 U/L (39-117); Anion Gap 9 (12-20); Aspartate Amino Transferase 21 U/L (5-37); Bilirubin Total 0.6 mg/dL (0.0-1.0); Blood Urea Nitrogen 17 mg/dL (9-16); Calcium 9.4 mg/dL (8.4-10.2); Carbon Dioxide 25 mmol/L (22-29); Chloride 110 mmol/L (96-108); Cholesterol 177 mg/dL (<200); Estimated Glomerular Filt Rate > 60; Glucose Random 92 mg/dL (60-115); HDL Cholesterol 56 mg/dL (>40); Iron 70 mcg/dL (45-160); LDL Cholesterol Calculated 112 mg/dL (<100); Percent Iron Saturation 28 % (15-50); Potassium 4.3 mmol/L (3.3-5.1); Sodium 140 mmol/L (135-145); Total Iron Binding Capacity 248 mcg/dL (228-428); Total Protein 6.7 g/dL (6.5-8.0); Triglycerides 47 mg/dL (<150); Unsaturated Iron Binding 178 ug/dL
[2024-09-08 16:54] LABS: Ferritin 141 ng/mL (20-250); Free T4 (Free Thyroxine) 0.97 ng/dL (0.71-1.85); Thyroid Stimulating Hormone 2.49 uIU/mL (0.32-4.0)
[2024-09-08 17:04] LABS: Folate 16.1 ng/mL (> or = 4.0); Prostate Specific Antigen Scr 0.79 ng/mL (<0.05-4.0); Vitamin B12 994 pg/mL (200-900)
== END 2024-09-08 15:41 | disposition home or self-care (01) ==
LOC: HO.LAB 15:40
PROVIDERS: PCP Internal Medicine; Visit Provider Internal Medicine
DX: D64.9 Anemia, unspecified (principal); E78.00 Pure hypercholesterolemia, unspecified; Z12.5 Encounter for screening for malignant neoplasm of prostate
CPT/HCPCS: 36415; 80053; 80061; 82607; 82728; 82746; 83540; 84153; 84439; 84443; 85025; 85045

== ENCOUNTER 2024-09-21 13:30 | Outpatient (REF) | payer MEDICARE, SELFPAY ==
--- NOTE | ~2024-09-21 | XR_ITS ---
EXAMINATION: XR KNEE 3 VIEWS RIGHT HISTORY: M17.11 - Unilateral primary osteoarthritis, right knee COMPARISON: Comparison is made with the prior examination dated 12/09/2021. FINDINGS: Standing AP views of both knees and additional lateral and sunrise patellar views of the right knee are submitted. Osseous mineralization is normal. There is no fracture or dislocation. There is severe tricompartmental osteoarthritis with joint space narrowing and osteophyte formation. There is lateral subluxation of the tibia with respect to the femur. There is no significant joint effusion. There are vascular calcifications. Incidental note is made of multiple soft tissue calcifications about the left knee. XR/XR knee RT 3V IMPRESSION: Severe osteoarthritis of the right knee as described. Electronically signed by: Aung Thompson MD 09/23/2024 08:20 AM EDT
--- OUTSIDE RECORDS SUMMARY | 2024-09-21 16:38 | XMS_ITS | Clinical Summary ---
Author Organization [address] [place] [address] Address [address] [place] [address] Phone Care Team Providers Care Appliance Painter And Refinisher Name Role Phone Tavares Mcgee MD Primary Care Provider [phone] Allergies Active Allergy Reactions Criticality Noted Date [...] 3:15 PM EDT Office Visit Orthopedic Surgery [facility] [address] [address] Alberto Gleason, DPM Dermatophytosis of nail (Primary Dx); Pain in toe of right foot; Pain in toe of left foot; Dermatofibroma of right lower leg; Eccrine poroma of foot, left; Metatarsalgia of both feet; Difficulty walking; Tinea pedis of left foot from Last 3 Months Surgical History Surgery Date Site/Laterality Comments TONSILLECTOMY ADENOIDECTOMY, BILATERAL MYRINGOTOMY AND TUBES PROCEDURE: [place] TONSILLECTOMY & ADENOIDECTOMY <AGE 14 OTHER SURGICAL HISTORY PROCEDURE: [place] EXCISION MALIGNANT LESION F/E/E/N/L 0.5 CM/< Medical [...] PM EDT Office Visit Orthopedic Surgery - [address] [address] Alberto Gleason DPM 175 [facility] [address] [place] [address] Health Maintenance Due Date Last Done Comments [...] [place] [employer] MEDICARE Care Teams Appliance Painter And Refinisher Relationship Specialty Start Date End Date Tavares Mcgee MD [address] [place] [address] [address] [facility] [place] [address] PCP - General Internal Medicine 01/20/20
== END 2024-09-21 13:31 | disposition home or self-care (01) ==
LOC: HO.HOSX 13:30
PROVIDERS: PCP Internal Medicine; Visit Provider Physician Assistant
DX: M17.11 Unilateral primary osteoarthritis, right knee (principal)
CPT/HCPCS: 73562; 99212

== ENCOUNTER 2024-09-21 13:30 | Outpatient (AMB) | payer MEDICARE, SELFPAY ==
--- NOTE | 2024-09-21 13:40 | A.OFFVIS_ITS ---
Vital Signs 09/21/24 13:43 Height 5 ft 10 in Weight 175 lb BMI 25.1 Intake Visit Reasons: OV - RT knee OA Intake Note: Dilan is a 67 year old male who presents today for a follow up of right knee OA. At patient last visit on 10/01/23 he received bilateral knee injections, follow up as needed. Patient reports injection only provided him with relief for less than a month. He states he previously had medical conditions that stopped him moving forward with surgery. Today he would like to discuss surgical intervention today. Allergies erythromycin base [ERYTHROMYCIN BASE] Adverse Reaction (Mild, Verified 09/21/24 13:51) N/V Medication List - Last Reconciled 09/21/24 by Glory Milian PA-C acetaminophen (Tylenol) 650 mg (2 x 325 mg) PO Q6H PRN arginine (L-arginine) mg PO cyclobenzaprine mg PO 3XD echinacea 380 mg PO DAILY finasteride 5 mg PO DAILY fish,flaxseed oil-e.prim-bcurr 400-400-200 mg caps PO lithium carbonate 2 caps in am and 2 caps noon orally; 90 days multivitamin 1 tab PO DAILY sildenafil 100 mg PO DAILY PRN tamsulosin 0.8 mg (2 x 0.4 mg) PO DAILY 90 days terbinafine HCl 250 mg PO DAILY vitamin B complex 1 cap PO DAILY walker Folding front wheeled walker HPI HPI OV - RT knee OA: Details: 68-year-old gentleman presents to the office today for ongoing right knee pain. He was previously booked for right total knee arthroplasty which was canceled due to bradycardia. This was thought to be due to his lithium levels. 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 He continues to have limitations in daily activities due to his right knee pain. [facility] Medical History Urinary incontinence Arthritis of left knee Pre-operative clearance Osteoarthritis of right knee Impacted cerumen of right ear TSH elevation Right knee pain Primary osteoarthritis of right knee Bradycardia Onychomycosis High thyroid stimulating hormone (TSH) level Pituitary adenoma Umbilical hernia Ascending aorta dilatation Erectile dysfunction Osteoarthritis of knees, bilateral BPH (benign prostatic hyperplasia) Bipolar 1 disorder Shoulder pain Surgical History H/O colonoscopy Supraumbilical hernia History of surgery Skin cancer of face History of tonsillectomy Family History Father CVD (cardiovascular disease) Mental health disorder Mother Medical history unknown Maternal Aunt Non-Hodgkin lymphoma Paternal Uncle Myocardial infarction Social History Housing: House Are you a primary memory care program director to a significant other at home: No Do you presently have visiting nurse or other home services: No Alcohol intake: current Alcohol intake frequency: holidays/special occasions only Alcohol type: beer Comment: 3 beers a month Patient Tobacco Use Status: Former Tobacco user Tobacco use type: Cigarette Years Smoked: December 2003 e-Cigarette/Vaping Use: Never Used Second Hand Smoke Exposure: No service: No Current occupational status: employed 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 Current occupational exposures/hazards: No Cognitive needs: Yes (walker) Hearing needs: No Vision needs: Yes (glasses) Review of Systems Const All systems reviewed & are unremarkable except as noted in HPI and below Physical Exam Vital Signs: BMI result Body Mass Index 25.1 Const General: cooperative and no acute distress Orientation/consciousness: patient oriented x3 Resp Effort & Inspection: normal respiratory effort and able to speak in complete sentences Cardio Peripheral pulses: Peripheral pulses 2+ throughout Neuro General: patient oriented x3 Extrem Other: Right knee normal to inspection he has full range of motion with severe varus deformity. Neurovascularly intact Results Reviewed Results Reviewed: X-rays of the right knee obtained in the office today and reviewed by me show severe osteoarthritis with joint collapse and varus deformity. Assessment & Plan Assessment & Plan (1) Osteoarthritis of left knee: Code(s): M17.12 - Unilateral primary osteoarthritis, left knee Category: Medical Plan: We had a lengthy discussion about the extent of his arthritis along with options available. Given that this is severely debilitating to him he would like to pursue surgical intervention. I explained surgical intervention would be a right total knee arthroplasty. We discussed at length the procedure in detail along with the recovery process, length of stay in hospital including therapy along with home therapy and transition to outpatient physical therapy. We also reviewed his out of work status and he stressed the importance of his timeline in regards to when this would be best suited for him. He mentioned it is ideal if he were to do this in late summer as he is a teacher so he can be somewhat full recovered and optimize for return to work in early fall. We will obtain a CT scan for further planning. Once this is obtained we will reach out to him to schedule the next step in joint replacement planning. Orders: Orders CT knee LT wo IV con Today M17.12 - Unilateral primary osteoarthritis, left knee XR knee RT 3V 09/21/24 M17.11 - Unilateral primary osteoarthritis, right knee Coding Level of Care Code Est Pt Level 4 (88127) Complex EM visit Add On G2211 Diagnoses Osteoarthritis of left knee M17.12
[2024-09-21 13:43] VITALS: BMI 25.1
--- OUTSIDE RECORDS SUMMARY | 2024-09-21 16:12 | XMS_ITS | Clinical Summary ---
Author Organization [address] [place] [address] Address [address] [place] [address] Phone Care Team Providers Care Plant Senior Manager Name Role Phone Tavares Mcgee MD Primary Care Provider [phone] Allergies Active Allergy Reactions Criticality Noted Date Comments Erythromycin 09/12/2020 Medications bethanechol (URECHOLINE) 50 mg tablet TAKE 1 [...] Take 1 Tablet by mouth daily. Active terbinafine (LamISIL) 250 mg tablet Take 1 tablet (250 mg total) by mouth 1 (one) time each day. 90 each 09/01/19 25 025 Active terbinafine (LamISIL) 250 mg tablet Take 1 tablet (250 mg total) by mouth 1 (one) time each day for 14 days. 14 each 09/01/19 25 025 Discontinued Active Problems Problem Noted Date Diagnosed Date Basal cell carcinoma 03/09/2013 Encounters Date Type Department Care Team Description 08/31/2024 3:15 PM EDT Office Visit Orthopedic Surgery [facility] [address] [address] Alberto Gleason, DPM Dermatophytosis of nail (Primary Dx); Pain in toe of right foot; Pain in toe of left foot; Dermatofibroma of right lower leg; Eccrine poroma of foot, left; Metatarsalgia of both feet; Difficulty walking; Tinea pedis of left foot from Last 3 Months Surgical History Surgery Date Site/Laterality Comments TONSILLECTOMY ADENOIDECTOMY, BILATERAL MYRINGOTOMY AND TUBES PROCEDURE: MS TONSILLECTOMY & ADENOIDECTOMY <AGE 14 OTHER SURGICAL HISTORY PROCEDURE: MS EXCISION MALIGNANT LESION F/E/E/N/L 0.5 CM/< Medical [...] Recorded Sex Assigned at Not on file Legal Sex Male 3:39 AM EST Gender Identity Not on file Sexual Orientation Not on file Obstetrics History Last Filed Vital Signs Vital Sign Reading Time Taken Comments Blood Pressure 130/76 03/02/2023 4:15 PM EDT Pulse 43 03/02/2023 4:15 PM EDT pt confirms low pulse history Temperature - - Respiratory Rate - - Oxygen Saturation - - Inhaled Oxygen Concentration - - Weight 80.7 kg (178 lb) 08/31/2024 3:17 PM EDT Height 177.8 cm (5' 10 ) 08/31/2024 3:1 7 PM EDT Body Mass Index 25.54 08/31/2024 3:17 PM EDT Plan of Treatment Upcoming Encounters Date Type Department Care Team (Late st Contact Info) Description 10/04/2024 3:45 PM EDT Office Visit Orthopedic Surgery - [address] [address] Alberto Gleason DPM 175 [facility] [address] [place] [address] Health Maintenance Due Date Last Done Comments Pneumococcal Vaccine: 50+ Years (1 of 2 - PCV) 1976 Zoster Vaccines (2 of 2) 05/08/2020 03/13/2020 Abdominal Aortic Aneurysm (AAA) Screen 05/25/2022 Cholesterol Screening (Lipid Panel) 05/25/2022 Colorectal Cancer Screening: Colonoscopy 05/25/2022 Depression Screening 05/25/2022 Hepatitis C Screening 05/25/2022 Medicare Annual Wellness Visit 05/25/2022 Social Influencers of Health Screening 05/25/2022 Falls Risk Assessment 2022 COVID-19 Vaccine ( season) 2024 09/19/2021, 09/25/2020, 09/04/2020 DTaP,Tdap,and Td Vaccines (2 - Td or Tdap) 04/19/2029 04/19/2019 RSV Immunization Adult Patients (1 - 1-dose 75+ series) 2032 Influenza Vaccine Completed 05/26/2024, , 05/12/2022, Additional history exists HIB Vaccines Aged Out No longer eligi [...] patient's age to complete this topic Meningococcal B Vacine Aged Out No lo nger eligible based on patient's age to complete this topic RSV Immunization Patients Under 20 months Aged Out No longer eligible based on patient's age to complete this topic Varicella Vaccines Aged Out No longer eligible based on patient's age to complete this topic Insurance [employer] MEDICARE Care Teams Plant Senior Manager Relationship Specialty Start Date End Date Tavares Mcgee MD [address] [place] [address] [address] [facility] [place] [address] PCP - General Internal Medicine 01/20/20
== END 2024-09-21 14:50 | disposition home or self-care (01) ==
LOC: HO.HOS 13:31
PROVIDERS: PCP Internal Medicine; Visit Provider Physician Assistant
DX: M17.12 Unilateral primary osteoarthritis, left knee (principal)
CPT/HCPCS: 99213; G2211

== ENCOUNTER → 2024-09-21 14:00 | Outpatient (BNV) | payer MEDICARE, SELFPAY | PROVIDERS: PCP Internal Medicine; Visit Provider Radiology Diagnostic Radiology | DX: M17.11 Unilateral primary osteoarthritis, right knee (principal) | CPT/HCPCS: 73562 ==

== ENCOUNTER 2024-11-28 16:06 | Outpatient (RCR) | payer MEDICARE, SELFPAY ==
--- NOTE | 2024-11-28 17:30 | MHC.PT.EP ---
[facility] [place] [facility] [place] Office [place] Office [address] Mehdi Colón [address] [phone] F: [phone] F: [phone] F: [phone] F: [phone] Physical Therapy Plan of Care Date of Evaluation: 11/28/24 Date of Surgery: N/A Diagnosis: osteoarthritis, knee (RL) Assessment: pt is a 69 y/o male presenting to physical therapy w/ referring diagnosis of osteoarthritis, knee. Impairments include pain, decreased range of motion, decreased strength, impaired functional mobility, impaired postural awareness, and altered ambulation mechanics. pt is a fair candidate for skilled PT due to age, potential remediation of impairments, typical disease/condition progression and prognosis, comorbidities, and motivation. pt would benefit from skilled PT intervention to provide a tailored strengthening and stretching exercise program, functional training, gait training, postural re-training, neuromuscular re-education, modalities as needed for pain, equipment safety demonstration. Frequency and Duration: The patient will be seen 2x/wk for 6 wks Short Term Goals: pt will be I w/ HEP to promote self-management of condition. pt will improve B knee flexion by at least 10* to promote ease in functional squat. Chcf Goals: pt will improve B quad strength to 5/5 to promote ease in sit<>stand transfers. pt will ascend/descend 12 stairs using railing w/ reciprocal pattern to promote ease to access basement for laundry. pt will report a statistically significant improvement in self-reported outcome measure, LEFI, to promote return to PLOF. Treatment Plan: Modalities to reduce pain, spasms and effusion. Manual therapy to restore motion and function. Therapeutic exercise to improve strength and flexibility. Neuromuscular re-education for posture and balance. Therapeutic activities to return to functional activities of daily living. Electronically signed by: Susan Duvall PT, DPT Please sign and return to therapist. Thank you for your referral.
--- NOTE | 2024-12-21 11:26 | MHC.PT.DC ---
[facility] [place] [facility] [place] Office [place] Office [address] Mehdi Colón 140 [facility] [phone] F: [phone] F: [phone] F: [phone] F: [phone] Physical Therapy Discharge Report Diagnosis: osteoarthritis, knee (RL) Date of Surgery: N/A Date of Evaluation: 11/28/24 Date of Discharge: 12/21/24 Treatments to Date: 1 Cancellations to Date: 3 No Shows to Date: 2 Discharge Status: Visit Non-compliance Discharge Summary: The patient has no showed or cancelled 5 appointments in a row. He is being discharged for attendance non-compliance. Electronically signed by: Susan Duvall PT, DPT Please sign and return to therapist. Thank you for your referral.
== END 2024-12-21 11:26 | disposition home or self-care (01) ==
LOC: HO.PT 16:06
PROVIDERS: PCP Internal Medicine; Visit Provider Orthopaedic Surgery
DX: M17.0 Bilateral primary osteoarthritis of knee (principal)
CPT/HCPCS: 97162

== ENCOUNTER 2025-01-31 08:38 | Outpatient (AMB) | payer MEDICARE, SELFPAY ==
--- NOTE | 2025-01-31 08:44 | A.OFFVIS_ITS ---
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 for other preprocedural exm Allergies erythromycin base (ERYTHROMYCIN BASE) Adverse Reaction (Mild, Verified 09/21/24 13:51) N/V Medication List - Last Reconciled 01/31/25 by Aaron Kraft MD acetaminophen (Tylenol) 650 mg (2 x 325 mg) PO Q6H PRN arginine (L-arginine) mg PO finasteride 5 mg PO DAILY fish,flaxseed oil-e.prim-bcurr 400-400-200 mg caps PO lithium carbonate 2 caps in am and 2 caps noon orally; 90 days multivitamin 1 tab PO DAILY sildenafil 100 mg PO DAILY PRN tamsulosin 0.8 mg (2 x 0.4 mg) PO DAILY 90 days vitamin B complex 1 cap PO DAILY walker Folding front wheeled walker HPI Comments Details: Dilan is here for preoperative consultation regarding knee surgery. He has seen [facility] in the past but not recently. Seems to have chronic sinus bradycardia as well as mitral regurgitation. According to, he has had heart murmur going back many decades and has been followed up intermittently. He also has chronically low heart rates. He states he goes to the gym and works out frequently without any issues. He also manages to walk a few miles a week in spite of using a cane. He has got no symptoms like angina or shortness of breath or palpitations or syncope extra. [facility] Medical History (Updated 01/31/25 @ 10:15 by Aaron Kraft MD) Pre-operative clearance Urinary incontinence Arthritis of left knee Osteoarthritis of right knee Impacted cerumen of right ear TSH elevation Right knee pain Primary osteoarthritis of right knee Bradycardia Onychomycosis High thyroid stimulating hormone (TSH) level Pituitary adenoma Umbilical hernia Ascending aorta dilatation Erectile dysfunction Osteoarthritis of knees, bilateral BPH (benign prostatic hyperplasia) Bipolar 1 disorder Shoulder pain Surgical History H/O colonoscopy Supraumbilical hernia History of surgery Skin cancer of face History of tonsillectomy Family History Father CVD (cardiovascular disease) Mental health disorder Mother Medical history unknown Maternal Aunt Non-Hodgkin lymphoma Paternal Uncle Myocardial infarction Social History Housing: House Are you a primary spiritual care coordinator to a significant other at home: No Do you presently have visiting nurse or other home services: No Alcohol intake: current Alcohol intake frequency: holidays/special occasions only Alcohol type: beer Comment: 3 beers a month Patient Tobacco Use Status: Former Tobacco user Tobacco use type: Cigarette Years Smoked: December 2003 e-Cigarette/Vaping Use: Never Used Second Hand Smoke Exposure: No service: No Current occupational status: employed 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 Current occupational exposures/hazards: No Cognitive needs: Yes (walker) Hearing needs: No Vision needs: Yes (glasses) Review of Systems Const Denies weakness ENT Denies dizziness Card Denies chest pain, Denies chest pain with activity, Denies syncope, Denies rapid heart rate, Denies pedal edema, Denies edema, Denies leg edema, Denies lightheadedness, Denies palpitations, Denies dyspnea, Denies dyspnea on exertion and Denies orthopnea Resp Denies cough, Denies dyspnea and Denies dyspnea on exertion GI Denies hematochezia and Denies change in stool character Musc Denies abnormal gait, Denies muscle cramps, Denies muscle weakness, Denies numbness, Denies radiating pain into limb and Denies tingling Neuro Denies abnormal gait, Denies dizziness, Denies syncope, Denies numbness, Denies tingling and Denies weakness Endo Denies palpitations Physical Exam Vital Signs: Last Vital Signs Pulse 45 L 01/31/25 08:45 BP 124/68 01/31/25 08:45 BMI result Body Mass Index 25.0 Const General: comfortable and no acute distress Orientation/consciousness: patient oriented x3 HEENT Other: Unremarkable Head: Yes normal to inspection Neck Neck: Yes normal visual inspection Chest Chest palpation & inspection: normal inspection of the chest Resp Auscultation: clear to auscultation bilaterally Cardio Palpation: normal PMI Heart sounds: S1 normal heart sound present, S2 normal heart sound present, no gallops, Murmur heart sound present systolic II/ and at the apex and no rubs GI Palpation (GI): Soft to palpation Back/Spine/Pelvis Other: unremarkable Skin General skin exam: no rashes or lesions noted Neuro General: patient oriented x3 Extrem General: Yes normal to inspection Psych Mental Status: mental status grossly normal Office Procedures EKG Details: EKG with sinus bradycardia at 45/Min; cannot exclude old anteroseptal infarct but more likely from body habitus; nonspecific ST-T changes; borderline NM prolongation to 220 milliseconds [place]. [id number], Complete Assessment & Plan Assessment & Plan (1) Preoperative cardiovascular examination: Code(s): Z01.810 - Encounter for preprocedural cardiovascular examination Category: Medical (2) Bradycardia: Code(s): R00.1 - Bradycardia, unspecified Category: Medical (3) Myxomatous mitral valve: Code(s): I34.1 - Nonrheumatic mitral (valve) prolapse Category: Medical Plan On review of previous EKGs, bradycardia is chronic. Even in 2018, EKG similar. In the Holter monitor from 2021, frequent sinus bradycardia and some PVCs. Last echocardiogram was from 2021 and that showed preserved LVEF with mild posterior mitral leaflet prolapse and mild to moderate mitral regurgitation/mild aortic regurgitation. Clinically, he has got no cardiac symptoms. With regard to the sinus bradycardia itself, no specific implications and he does not need a pacemaker. Would need to be followed up periodically for any worsening. Of note, in a prior intraop vitals recording from 2020 for hernia surgery, heart rate was in the 40s. With regard to the mitral regurgitation, we will repeat an echocardiogram. If there is no significant progression of the mitral regurgitation, should be able to proceed with the proposed surgery as planned. Low to intermediate cardiac risk. Discussed with by Tigbrian. Discussion Notes During the consultation, I discussed the importance of evaluating the patient's heart condition through an echocardiogram to monitor the leaky valve and heart murmur. We also addressed the low heart rate and its implications for anesthesia during potential surgeries. I advised the patient to continue his exercise routine to manage osteoarthritis symptoms. Patient was informed and verbally consented to the use of an ambient scribe for clinic note documentation during this visit. Patient Instructions: - Schedule an echocardiogram to check the heart valve and murmur. - Monitor heart rate, especially before any surgeries. - Continue regular exercise to manage arthritis symptoms. - Address prostate issues before considering knee surgery. Coding Level of Care Code New Pt Level 4 (99086) Complex EM visit Add On G2211 Diagnoses Preoperative cardiovascular examination Z01.810 Bradycardia R00.1 Myxomatous mitral valve I34.1 CPT Codes EKG - CPT: [id number], Complete ([id number])
[2025-01-31 08:45] VITALS: BP 124/68; PULSE 45; BMI 25.0
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
--- OUTSIDE RECORDS SUMMARY | 2025-01-31 08:54 | XMS_ITS | Clinical Summary ---
Author Organization [facility] Address [address] [place] [address] Phone Care Team Providers Care [employer] Name Role Phone Tavares Mcgee MD Primary Care Provider [phone] Allergies Active Allergy Reactions Criticality Noted Date Comments Erythromycin Nausea And Vomiting Low 09/12/2020 Medications bethanechol (URECHOLINE) 50 mg tablet [...] Active Problems Problem Noted Date Diagnosed Date Cardiac murmur 12/22/2024 Mitral regurgitation 12/22/2024 Primary osteoarthritis of right knee 12/22/2024 Primary osteoarthritis of left knee 12/22/2024 Bodies, loose, joint, knee, left 12/22/2024 BPH with obstruction/lower urinary tract symptom s 01/29/2024 Bipolar disorder (CMS/HCC V24, CMS/HCC V28) 08/0 02/2024 Bradycardia 01/29/2024 Basal cell carcinoma 03/09/2013 Encounters Date Type Department Care Team Description 12/22/2024 10:00 AM EDT Office Visit Orthopedic Surgery - [place] [address] [facility] [address] [place] [address] Vinny Davila MD Primary osteoarthritis of right knee (Primary Dx); Bilateral knee pain; Primary osteoarthritis of left knee; Chronic instability of right knee; Bodies, loose, joint, knee, left; BPH with obstruction/lower urinary tract symptoms 12/13/2024 3:30 PM EDT Office Visit Orthopedic Surgery - [address] [phone] Alberto Gleason, DPM Dermatophytosis of nail (Primary Dx); Arthritis of knee; Dermatofibroma of right lower leg; Eccrine poroma of foot, left; Metatarsalgia of both feet; Tinea pedis of left foot; Pain in toe of left foot; Pain in toe of right foot; Difficulty walking from Last 3 Months Surgical History Surgery Date Site/Laterality Comments TONSILLECTOMY ADENOIDECTOMY, BILATERAL MYRINGOTOMY AND TUBES PROCEDURE: [place] TONSILLECTOMY & ADENOIDECTOMY <AGE 14 OTHER SURGICAL HISTORY PROCEDURE: [place] EXCISION MALIGNANT LESION F/E/E/N/L 0.5 CM/< Medical History Medical History Date Comments Joint problem DX:Joint problem Ascending aorta dilatation (CMS/HCC V24) DX:Ascending aorta dilatation (HCC) Bipolar 1 disorder (CMS/HCC V24, CMS/HCC V28) DX:Bipolar 1 disorder (HCC) BPH (benign prostatic hyperplasia) DX:BPH (benign prostatic hyperplasia) Erectile dysfunction DX:Erectile dysfunction Osteoarthritis of knees, bilateral DX:Osteoarthritis of knees, bilateral Pituitary abnormality (CMS/HCC V24) DX:Pituitary abnormality (HCC) Umbilical hernia DX:Umbilical he [...] - Inhaled Oxygen Concentration - - Weight 80.5 kg (177 lb 6 oz) 12/22/2024 10:10 AM EDT Height 177.8 cm (5' 10 ) 12/22/2024 10: 10 AM EDT Body Mass Index 25.45 12/22/2024 10:10 AM EDT Plan of Treatment Upcoming Encounters Date Type Department Care Team (Late st Contact Info) Description 03/27/2025 3:30 PM EDT Office Visit Orthopedic Surgery - [place] [address] [facility] [address] [place] [id number] Alberto Gleason, QUINCY [address] [address] Health Maintenance Due Date Last Done Comments Pneumococcal Vaccine: 50+ Years (1 of 1 - PCV) 10/26/2007 Zoster Vaccines (2 of 2) 05/08/2020 03/13/2020 Abdominal Aortic Aneurysm (AAA) Screen 05/25/2022 Cholesterol Screening (Lipid Panel) 05/25/2022 Colorectal Cancer Screening: Colonoscopy 05/25/2022 Hepatitis C Screening 05/25/2022 Medicare Annual Wellness Visit 05/25/2022 Social Influencers of Health Screening 05/25/2022 Falls Risk Assessment 2022 COVID-19 Vaccine ( season) 2024 09/19/2021, 09/25/2020, 09/04/2020 Depression Screening 06/22/2024 Influenza Vaccine (#1) 2025 , 05/21/2023, 05/12/2022, Additional history exists DTaP,Tdap,and Td Vaccines (2 - Td or Tdap) 04/19/2029 04/19/2019 RSV Immunization Adult Patients (1 - 1-dose 75+ series) 2032 HIB [...] age to complete this topic Meningococcal B Vaccine Aged Out No l onger eligible based on patient's age to complete this topic RSV Immunization Patients Under 20 months Aged Out No longer eligible based on patient's age to complete this topic Varicella Vaccines Aged Out No longer eligible based on patient's age to complete this topic Procedures Procedure Name Priority Date/Time Associated Diagnosis Comments XR KNEE 4+ VIEWS BILAT Routine 12/22/2024 10:05 AM EDT Bilateral knee pain Primary osteoarthritis of right knee Primary osteoarthritis of left knee from Last 3 Months Results * XR Knee 4+ Views bilat (12/22/2024 10:05 AM EDT) Anatomical Region Laterality Modality Lower Extremities, Knee Bilateral Computed Radiography Narrative 12/22/2024 5:21 PM EDT 4 views weightbearing bilateral knees obtained today including AP, Danielson, lateral, sunrise were reviewed. Right knee x-rays show severe degenerative changes involving the medial compartment including complete joint space narrowing, moderate marginal osteophytes, subchondral sclerosis, and medial tibial plateau wear. Small adjacent medial ossification. Moderate degenerative change involving the lateral compartment and patellofemoral compartment. Partial lateral and anterior subluxation of the tibia on the femur. Moderate effusion. 13 degree tibial varus. Left knee x-rays show severe degenerative change involving patellofemoral compartment including complete joint space narrowing, small marginal space, subchondral sclerosis. Lateral patellar tilt with small lateral subluxation. Mild to moderate degenerative changes involving medial and lateral compartments. Multiple loose bodies including the superior lateral patellar pouch, posterior knee, and lateral compartment. Small effusion. 5 degree tibial varus. Vinny Davila MD IMG XR PROCEDURES Fin al Result from Last 3 Months Insurance [employer] ADV[employer]AGE MEDICARE Care Teams [employer] Relationship Specialty Start Date End Date Tavares Mcgee MD [address] [place] [address] [address] [facility] [place] [id number] PCP - General Internal Medicine 01/20/20
== END 2025-01-31 09:23 | disposition home or self-care (01) ==
LOC: HO.HCS 08:39
PROVIDERS: PCP Internal Medicine; Visit Provider Internal Medicine
DX: Z01.810 Encounter for preprocedural cardiovascular examination (principal); I34.1 Nonrheumatic mitral (valve) prolapse; R00.1 Bradycardia, unspecified; I44.0 Atrioventricular block, first degree
CPT/HCPCS: 93010; 99214; G2211

== ENCOUNTER → 2025-01-31 08:38 | Outpatient (BNVA) | payer MEDICARE, SELFPAY | PROVIDERS: PCP Internal Medicine; Visit Provider Internal Medicine | DX: Z01.810 Encounter for preprocedural cardiovascular examination (principal); R00.1 Bradycardia, unspecified; I34.1 Nonrheumatic mitral (valve) prolapse | CPT/HCPCS: 93005; 99212 ==